=== PATIENT | female | born 1935 | race Two or more races ===

== ENCOUNTER 2018-03-21 12:06 | Inpatient (IN) | payer MEDICARE, OTHER ==
[2018-03-21] VITALS (17 sets, daily range): BP systolic 79–146; BP diastolic 27–84
[~2018-03-21] VITALS: Ht 162.6 cm; Wt 58.7 kg
--- NOTE | 2018-03-21 12:06 | NUR ---
UNABLE TO OBTAIN A RECTAL TEMP AT THIS TIME
--- NOTE | 2018-03-21 12:06 | NUR ---
BIB RA 88 FROM HOME, TACHYPNEIC WITH LOW O2 SAT PER HOME HEALTH NURSE. 82 % O2 SAT PER EMS. PATIENT ALTERED, RESPONDS TO TACTILE STIMULI. BREATHING LABORED, ARRIVED ON NON REBREATHER. MD AT BEDSIDE, PLACED ON BIPAP PER MD, TOLERATING WELL. SAFETY AND COMFORT MEASURES IN PLACE. WILL CONTINUE TO MONITOR.
[2018-03-21] MEDS ORDERED: PIPERACILLIN /TAZOBACTAM 3.375 G in IV D5W 50 ML IV ONE (12:30)
[2018-03-21] MEDS ORDERED: IV NS 0.9% 1,000 ML BAG IV ONE (12:30)
[2018-03-21] MEDS ORDERED: VANCOMYCIN 1 GM in IV D5W 250 ML IV ONE (12:30)
--- NOTE | 2018-03-21 12:30 | NUR ---
NEW IV STARTED ON RAC, 20G. BLOOD DRAWN AND SENT TO LAB.
--- NOTE | 2018-03-21 12:30 | NUR ---
SECOND IV STARTED ON RAC, 20G. BLOOD DRAWN AND SENT TO LAB.
[2018-03-21 12:40] LABS: BASOPHILS # (AUTO) 0.1 /CMM (0.0-0.2); BASOPHILS % (AUTO) 0.5 % (0.0-2.0); EOSINOPHILS % (AUTO) 2.9 % (0.0-6.0); HEMATOCRIT 26 % (33-45); HEMOGLOBIN 8.4 g/dL (11.5-14.8); LYMPHOCYTES # (AUTO) 2.8 /CMM (0.8-4.8); LYMPHOCYTES % (AUTO) 18.5 % (20.0-44.0); MEAN CORPUSCULAR HGB CONC 33 g/dl (31.0-36.0); MEAN CORPUSCULAR VOLUME 72 fL (82-100); MONOCYTES # (AUTO) 0.9 /CMM (0.1-1.30); MONOCYTES % (AUTO) 6.3 % (2.0-12.0); NEUTROPHILS # (AUTO) 10.8 /CMM (1.8-8.9); NEUTROPHILS % (AUTO) 71.8 % (43.0-81.0); PLATELET COUNT (AUTO) 605 /CMM (150-450); RDW COEFFICIENT OF VARIATION 16.6 (11.5-15.0); RED BLOOD CELL COUNT(AUTO) 3.58 MIL/uL (4.0-5.2)
[2018-03-21 12:49] LABS: CALCIUM, SERUM 9.5 mg/dL (8.5-10.1); CARBON DIOXIDE 25 mmol/L (21-32); CHLORIDE 101 mmol/L (98-107); CREATININE 0.6 mg/dL (0.6-1.3); GLUCOSE 167 mg/dL (74-106); POTASSIUM 4.1 mmol/L (3.5-5.1); SODIUM SERUM 135 mmol/L (136-145); UREA NITROGEN, BLOOD 14 mg/dL (7-18)
[2018-03-21 12:50] LABS: INR 1.09 (0.85-1.15)
[2018-03-21 12:55] LABS: ALANINE AMINOTRANSFERASE 29 U/L (12-78); ALKALINE PHOSPHATASE 170 U/L (46-116); ASPARTATE AMINOTRANSFERASE 22 U/L (15-37); BILIRUBIN,DIRECT 0.1 mg/dL (0.0-0.2); BILIRUBIN,TOTAL 0.3 mg/dL (0.2-1.0); TOTAL PROTEIN, SERUM 6.9 g/dL (6.4-8.2)
[2018-03-21 12:57] LABS: ALBUMIN 1.4 g/dL (3.4-5.0)
[2018-03-21 12:58] LABS: TROPONIN I < 0.017 ng/mL (0.00-0.056)
--- NOTE | 2018-03-21 13:11 | NUR ---
16 FR hernandes catheter inserted per sterile protocal. Immediate output 5 ML of urine, color yellow, clear.
--- NOTE | 2018-03-21 13:50 | NUR ---
ICU 263
[2018-03-21] MEDS ORDERED: SIMV20TA6 GT (14:03)
[2018-03-21] MEDS ORDERED: METO50TA16 GT (14:03)
[2018-03-21] MEDS ORDERED: COLL30OI TP (14:03)
[2018-03-21] MEDS ORDERED: EPOE1VIA12 SQ (14:03)
[2018-03-21] MEDS ORDERED: LOSA100T3 GT (14:03)
[2018-03-21] MEDS ORDERED: METF-440 GT (14:03)
[2018-03-21] MEDS ORDERED: MUPI22OI2 TP (14:03)
[2018-03-21] MEDS ORDERED: ERTA1VIA2 IV (14:03)
[2018-03-21] MEDS ORDERED: LEVO25TA2 GT (14:03)
[2018-03-21] MEDS ORDERED: FERR325T23 GT (14:03)
[2018-03-21] MEDS ORDERED: LINE600T GT (14:03)
[2018-03-21 14:05] LABS: APPEARANCE,URINE Clear (CLEAR); BILIRUBIN,URINE Negative (NEGATIVE); BLOOD, URINE Small Ery/uL (NEGATIVE); COLOR,URINE Yellow (YELLOW); KETONES,URINE Negative (NEGATIVE); LEUKOCYTE ESTERASE ,URINE Negative (NEGATIVE); NITRITE, URINE Negative (NEGATIVE); PH,URINE 5.5 (5.0-8.0); PROTEIN,URINE 30 mg/dl (NEGATIVE); UGLUCOSE Negative (NEGATIVE); UROBILINOGEN,URINE 0.2 EU/dL (0.2)
--- NOTE | 2018-03-21 14:08 | NUR ---
CALLED ICU FOR REPORT, RN NOT AVAILABLE FOR REPORT AT THIS TIME, WILL CALL BACK.
--- NOTE | 2018-03-21 14:13 | NUR ---
REPORT GIVEN TO ABRAM EDUARDO FOR LAURA UPON ADMISSION.
[2018-03-21 14:14] LABS: BACTERIA,URINE Few /HPF (None Seen); SQUAMOUS EPITHELIAL CELL,UR Moderate /HPF (None Seen)
[2018-03-21] MEDS ORDERED: ONDANSETRON HCL/PF 4 MG/2 ML VIAL IVP PRN (14:30)
[2018-03-21] MEDS ORDERED: NOREPINEPHRINE 8 MG in IV D5W 500 ML IV PRN (14:30)
--- NOTE | 2018-03-21 14:30 | NUR ---
PATIENT TRANSPORTED TO ICU, 263 VIA ACLS PROTOCOL. RNABRAM TO PROVIDE LAURA.
[2018-03-21] MEDS ORDERED: LORAZEPAM INJ 2 MG/ML VIAL IV PRN (15:00)
[2018-03-21] MEDS ORDERED: ENOXAPARIN SODIUM 30 MG/0.3 ML DISP.SYRIN SQ SCH (15:00)
[2018-03-21] MEDS ORDERED: FEE PK DOSING 1 MIN EA MC ONE (15:15)
--- NOTE | 2018-03-21 15:30 | NUR ---
SUPERVISOR NEWSPAPER DELIVERIES RECEIVED PATIENT FROM ER, PATIENT IS ON NON REBREATHER MASK THEN TRANSFERRED TO BIPAP AT 100% ONCE ON THE FLOOR PATIENT OPEN EYES, CONFUSED PER STRAIGHT LINE PRESS SETTER TO PAIN STIMULUS SINUS TACHYCARDIA NOTED, BRIEFLY LOW BP NOTED PLACED ON NPO WITH MULTIPLE WOUNDS AT THE BUTTOCKS AND FEET AREA, DRESSING CHANGED AND PHOTO AND DOCUMENTED WITH PATEL CATHETER DRAINING TO YELLOWISH URINE SMALL IN AMOUNT
[2018-03-21 15:53] LABS: ABG PCO2 33.5 mmHg (35.0-45.0); ABG PH 7.465 (7.350-7.450); AaDO2 288.5 mmHg; COHb 0.6 % (0.5-1.5); MetHb 0.7 % (0.0-1.5); O2Hb 97.7 % (94.0-97.0); SITE, ABG Left Radial; VENT MODE, BG BIPAP 15/5
--- NOTE | 2018-03-21 15:57 | NUR ---
bipap changes bellow as order: rate 12 fio2 50% Addendum: 03/21/18 at 1558 by COTY LAWRENCE RT Amended: Links added.
[2018-03-21] MEDS ORDERED: IV D5/ 0.9% NACL 1,000 ML IV PRN (16:00)
[2018-03-21] MEDS ORDERED: IV NS 0.9% 1,000 ML BAG IV PRN (16:00)
[2018-03-21] MEDS: ACETYLCYSTEINE 10% SOLN 400 MG/4 ML VIAL NEB SCH ×2 (16:00→23:09)
[2018-03-21] MEDS: IV NS 0.9% 1,000 ML IV PRN (16:03)
[2018-03-21] MEDS: IPRATROPIUM NEB FS 0.5 MG/2.5 ML AMPUL.NEB NEB SCH (16:05)
[2018-03-21] MEDS: ALBUTEROL HALF STRENGTH 1.25 MG/3 ML VIAL.NEB NEB SCH (16:05)
[2018-03-21] MEDS: ENOXAPARIN SODIUM 40 MG/0.4 ML DISP.SYRIN SQ SCH (16:05)
[2018-03-21] MEDS: PANTOPRAZOLE 40 MG VIAL IV SCH (16:05)
--- NOTE | 2018-03-21 16:15 | NUR ---
SLUDGE CONTROL OPERATOR SEEN AND EXAMINED BY DR. LOYD WITH NEW ORDERS MADE AND CARRIED OUT ABG DONE ORDERED BY DR. LOYD RESULT SHOWED TO HIM ORDERED TO DECREASED FI02 TO 50% ANG RATE - 12 MONITORED CLOSELY DAUGHTER IS AT BEDSIDE, DR. LOYD TALKED WITH DAUGHTER Addendum: 03/21/18 at 1740 by ABRAM HAND RN RESULT OF WOUND CULTURE DONE OUTSIDE WAS FAXED, RESULT IS IN THE CHART
[2018-03-21] MEDS: PIPERACILLIN /TAZOBACTAM 2.25 G in IV D5W 50 ML IV SCH (17:23)
--- NOTE | 2018-03-21 19:30 | NUR ---
REPORT GOTTEN ON PT. PT RESTING QUIETLY VIA VENTILATOR
--- NOTE | 2018-03-21 22:25 | NUR ---
CALLED TO CLARIFY CODE STATUS. PT IS FULL CODE FOR NOW
[2018-03-22] VITALS (35 sets, daily range): BP systolic 67–142; BP diastolic 19–83
[2018-03-22] MEDS: PIPERACILLIN /TAZOBACTAM 2.25 G in IV D5W 50 ML IV SCH ×4 (00:57→17:33)
[2018-03-22] MEDS: IPRATROPIUM NEB FS 0.5 MG/2.5 ML AMPUL.NEB NEB SCH ×4 (02:03→20:13)
[2018-03-22] MEDS: ALBUTEROL HALF STRENGTH 1.25 MG/3 ML VIAL.NEB NEB SCH ×4 (02:03→20:13)
[2018-03-22] MEDS: VANCOMYCIN 500 MG in IV D5W 100 ML IV SCH ×2 (02:09→14:27)
[2018-03-22 05:05] LABS: BASOPHILS % (AUTO) 0.4 % (0.0-2.0); EOSINOPHILS % (AUTO) 7.9 % (0.0-6.0); HEMATOCRIT 22 % (33-45); LYMPHOCYTES # (AUTO) 1.6 /CMM (0.8-4.8); LYMPHOCYTES % (AUTO) 13.3 % (20.0-44.0); MEAN CORPUSCULAR HGB CONC 33 g/dl (31.0-36.0); MEAN CORPUSCULAR VOLUME 72 fL (82-100); MONOCYTES # (AUTO) 0.5 /CMM (0.1-1.30); MONOCYTES % (AUTO) 4.4 % (2.0-12.0); PLATELET COUNT (AUTO) 496 /CMM (150-450); RDW COEFFICIENT OF VARIATION 16.4 (11.5-15.0); RED BLOOD CELL COUNT(AUTO) 3.01 MIL/uL (4.0-5.2); WHITE BLOOD COUNT (AUTO) 12.1 K/uL (4.3-11.0)
[2018-03-22 05:13] LABS: CALCIUM, SERUM 8.2 mg/dL (8.5-10.1); CARBON DIOXIDE 24 mmol/L (21-32); CHLORIDE 106 mmol/L (98-107); CREATININE 0.5 mg/dL (0.6-1.3); GLUCOSE 154 mg/dL (74-106); POTASSIUM 3.4 mmol/L (3.5-5.1); SODIUM SERUM 138 mmol/L (136-145); UREA NITROGEN, BLOOD 11 mg/dL (7-18)
[2018-03-22 05:55] LABS: BAND % (MANUAL) 1 % (0.0-5.0); EOSINOPHILS % (MANUAL) 3 % (0-4); LYMPHOCYTES % (MANUAL) 11 % (16-48); MONOCYTES % (MANUAL) 1 % (0-11.0); NEUTROPHILS % (MANUAL) 84 (42-76)
--- NOTE | 2018-03-22 07:30 | NUR ---
ICU/RN AM NOTES RECEIVED PT IN BED, ASLEEP, AROUSES TO TOUCH, NON VERBAL, ON BIPAP, FIO2 40% RATE 12, NOT IN ANY DISTRESS, BREATHING EVEN AND UNLABORED, SR HR 97 ON MONITOR, NO SIGNS OF FACIAL GRIMACING, OR DISCOMFORT, NS AT 75 ML/HR TO RAC G20, RT WRIST G24, FLUSHES WELL, BOTH SITES CLEAR. CONTRACTED BOTH UPPER AND LOWER EXTREMITIES. FC DRAINING WELL TO GRAVITY. SEE NURSING FLOWSHEET FOR SKIN ISSUES. WILL TURN AND REPOSITION EVERY 2 HOURS, ALARM SOUNDS AUDIBLE. CALL LIGHT WITHIN REACH, WILL CONTINUE TO MONITOR.
[2018-03-22] MEDS: ACETYLCYSTEINE 10% SOLN 400 MG/4 ML VIAL NEB SCH ×3 (07:42→23:43)
--- NOTE | 2018-03-22 08:33 | NUR ---
TYPIST NOTES PER LOPEZ CISNEROS FOR DNR/DNI STATUS. ORDER IN PLACE WITH FLOYD CHARGE NURSE.
[2018-03-22] MEDS: IV NS 0.9% 1,000 ML IV PRN (09:10)
[2018-03-22] MEDS: PANTOPRAZOLE 40 MG VIAL IV SCH (09:10)
[2018-03-22 10:16] LABS: ABG BASE EXCESS -2.9 mmol/L; ABG OXYGEN SATURATION 92.4 % (92.0-98.5); ABG PCO2 32.9 mmHg (35.0-45.0); ABG PH 7.425 (7.350-7.450); ABG PO2 71.2 mmHg (75.0-100.0); AaDO2 147.3 mmHg; COHb 0.9 % (0.5-1.5); MetHb 0.7 % (0.0-1.5); O2Hb 90.9 % (94.0-97.0); SITE, ABG Right Radial; VENT MODE, BG Nasal Cannula
[2018-03-22] MEDS: POTASSIUM CL. PREMIX PERIPHER. 50 ML IV SCH ×2 (12:33→13:18)
[2018-03-22] MEDS ORDERED: GLUCERNA 1.2 1,000 ML BOTTLE GT PRN (13:00)
--- NOTE | 2018-03-22 14:26 | NUR ---
CINDER PITMAN NOTES STARTED GLUCERNA 1.2 AT 20 ML/HR
--- NOTE | 2018-03-22 14:50 | NUR ---
EXTRUDER OPERATOR HELPER RN INFORMED THE TUB CHUCKER THAT HARBOR BOAT PILOT IS UNABLE TO ACCESS PATIENT'S BILATERAL LOWER EXTREMITIES FOR TEST. PER MD IT IS OK TO CANCEL THE TEST FOR NOW. HARBOR BOAT PILOT MADE AWARE.
--- NOTE | 2018-03-22 17:10 | NUR ---
INSPECTION CLERK NOTES DR. SORENSEN AT BEDSIDE TO ASSESS WOUNDS.
--- NOTE | 2018-03-22 18:55 | NUR ---
ICU/RN CLOSING NOTES PATIENT RESTING IN BED, EYES OPEN, NON VERBAL, ON 4L O2 NC, O2 SAT 96%, NOT IN ANY DISTRESS, BREATHING EVEN AND UNLABORED, SR HR 99 ON MONITOR, NO SIGNS OF FACIAL GRIMACING, OR DISCOMFORT, NS AT 75 ML/HR TO RAC G20, RT WRIST G24, FLUSHES WELL, BOTH SITES CLEAR. CONTRACTED BOTH UPPER AND LOWER EXTREMITIES. FC DRAINING WELL TO GRAVITY 400 ML TOTAL OUTPUT. TURNED AND REPOSITIONED EVERY 2 HOURS, ALARM SOUNDS AUDIBLE. CALL LIGHT WITHIN REACH, PM CARE DONE. DRESSING CHANGED TO ALL WOUND. ALL NEEDS MET AT THIS TIME. NO OTHER SIGNIFICANT CHANGE IN CONDITION. WILL ENDORSE TO NEXT SHIFT FOR LAURA.
[2018-03-22] MEDS: ENOXAPARIN SODIUM 40 MG/0.4 ML DISP.SYRIN SQ SCH (21:00)
--- NOTE | 2018-03-22 22:45 | NUR ---
SECONDARY SPECIAL EDUCATION TEACHER DF PER PREVIOUS RN CORTEZ SHAFER HELD 2ND POSSIBLE GIB LOW PLTS.
--- NOTE | 2018-03-22 23:22 | NUR ---
ATTEMPTING TO REASSURE DAUGHTER, WANTING TO TALK TO DRS ABOUT MOTHERS CARE, OFFICE NUMBERS GIVEN
--- NOTE | 2018-03-22 23:48 | NUR ---
ATTEMPTING TO REASSURE DAUGHTER, WANTED DOCTORS PHONE NUMBERS
[2018-03-23] VITALS (34 sets, daily range): BP systolic 89–138; BP diastolic 37–65
--- NOTE | 2018-03-23 | NUR ---
COMPLIANCE MANAGER NOTE PT RECEIVED SLEEPING IN BED. ON 4L OF O2 VIA NC AND SATURATING 98%. NO ACUTE DISTRESS NOTED. BREATHING UNLABORED. HOB ELEVATED AND ON ASPIRATION PRECAUTIONS. GT FEEDING WELL TOLERATED AND NO RESIDUALS NOTED AT THIS TIME. IV RAC CLEAN, INTACT WITH 1 UNIT OF PRBC INFUSING. NO FACIAL GRIMACE NOTED. WILL CONTINUE TO MONITOR.
[2018-03-23] MEDS: PIPERACILLIN /TAZOBACTAM 2.25 G in IV D5W 50 ML IV SCH ×4 (01:01→17:48)
[2018-03-23] MEDS: ALBUTEROL HALF STRENGTH 1.25 MG/3 ML VIAL.NEB NEB SCH ×4 (01:41→20:14)
[2018-03-23] MEDS: IPRATROPIUM NEB FS 0.5 MG/2.5 ML AMPUL.NEB NEB SCH ×4 (01:41→20:14)
--- NOTE | 2018-03-23 02:00 | NUR ---
FOOD AND BEVERAGE ASSOCIATE NOTE PT PUT ON BIPAP BY RT D/T DESATURATION AND SOB. ON BIPAP SATURATING 96% AND WELL TOLERATED. HOB REMAINS ELEVATED. WILL MONITOR.
[2018-03-23] MEDS: VANCOMYCIN 500 MG in IV D5W 100 ML IV SCH ×2 (02:23→15:57)
[2018-03-23] MEDS: ACETAMINOPHEN 325 MG TABLET MC PRN ×2 (03:06→13:47)
[2018-03-23 04:50] LABS: BASOPHILS # (AUTO) 0.1 /CMM (0.0-0.2); BASOPHILS % (AUTO) 1.1 % (0.0-2.0); EOSINOPHILS % (AUTO) 9.3 % (0.0-6.0); HEMATOCRIT 29 % (33-45); HEMOGLOBIN 9.1 g/dL (11.5-14.8); LYMPHOCYTES # (AUTO) 1.5 /CMM (0.8-4.8); LYMPHOCYTES % (AUTO) 11.7 % (20.0-44.0); MEAN CORPUSCULAR HGB CONC 32 g/dl (31.0-36.0); MEAN CORPUSCULAR VOLUME 75 fL (82-100); MONOCYTES # (AUTO) 0.8 /CMM (0.1-1.30); MONOCYTES % (AUTO) 6.2 % (2.0-12.0); NEUTROPHILS # (AUTO) 9.1 /CMM (1.8-8.9); NEUTROPHILS % (AUTO) 71.7 % (43.0-81.0); PLATELET COUNT (AUTO) 620 /CMM (150-450); RDW COEFFICIENT OF VARIATION 17.8 (11.5-15.0); RED BLOOD CELL COUNT(AUTO) 3.83 MIL/uL (4.0-5.2); WHITE BLOOD COUNT (AUTO) 12.7 K/uL (4.3-11.0)
[2018-03-23 05:07] LABS: CALCIUM, SERUM 8.9 mg/dL (8.5-10.1); CARBON DIOXIDE 22 mmol/L (21-32); CHLORIDE 106 mmol/L (98-107); CREATININE 0.6 mg/dL (0.6-1.3); GLUCOSE 175 mg/dL (74-106); POTASSIUM 3.5 mmol/L (3.5-5.1); SODIUM SERUM 138 mmol/L (136-145); UREA NITROGEN, BLOOD 9 mg/dL (7-18)
[2018-03-23 05:15] LABS: IRON, SERUM 19 ug/dl (50-175); TOTAL IRON BINDING CAPACITY 137 ug/dl (250-450)
[2018-03-23 05:18] LABS: FERRITIN 579 ng/mL (8-388)
[2018-03-23] MEDS: IV NS 0.9% 1,000 ML IV PRN ×2 (05:52→20:02)
--- NOTE | 2018-03-23 07:17 | NUR ---
OIL BURNER REPAIRER CLOSING NOTE PT REMAINED STABLE DURING SHIFT. ON BIPAP AT THIS TIME AND SATURATING 98%. ON ASPIRATION PRECAUTIONS. REPOSITIONED Q2H. WOUND TREATMENT PERFORMED ORDERED. TYLENOL GIVEN BEFORE WOUND TREATMENT. GTF CURRENTLY AT 40 MLS/HR. ALL NEEDS ATTENDED TO PROMPTLY. WILL ENDORSE TO NEXT SHIFT FOR CONTINUITY OF CARE.
[2018-03-23] MEDS: ACETYLCYSTEINE 10% SOLN 400 MG/4 ML VIAL NEB SCH ×3 (07:35→23:48)
--- NOTE | 2018-03-23 08:23 | NUR ---
WOUND CARE CONSULT WOUND CARE RECEIVED CONSULT FOR MULTIPLE WOUNDS AT THE LOWER EXTREMITIES AND BUTTOCKS. WOUND CARE WILL DEFER CONSULT AND ALL TREATMENT PLANS TO SURGICAL TEAM THEY ARE CURRENTLY FOLLOWING. ALL PRESSURE ULCER PREVENTION MEASURES NOTED TO BE IN PLACE. PT WITH PATRICK AT 9. PATIENT ON 1ST STEP LOW AIRLOSS MATTRESS FOR TREATMENT AND SKIN MANAGEMENT. Addendum: 03/23/18 at 0828 by YOLANDA BASILIO WNDNU PATIENT ADMITTED FROM HOME WITH MULTIPLE PRESSURE ULCERS POA. RECOMMEND SOCIAL SERVICE CONSULT FOR POSSIBLE APS. ACNP NOTIFIED AND IN AGREEMENT.
[2018-03-23] MEDS: DAKINS QUARTER STRENGTH (0.125%) 480 ML BOTTLE TOP SCH (09:00)
[2018-03-23] MEDS: ASCORBIC ACID 500 MG TABLET GT SCH (09:35)
[2018-03-23] MEDS: ZINC SULFATE 220 MG CAPSULE GT SCH (09:35)
[2018-03-23] MEDS: PANTOPRAZOLE 40 MG VIAL IV SCH ×2 (09:35→16:43)
--- NOTE | 2018-03-23 11:00 | NUR ---
ROBERTO was informed by Wound RN Karma that pt. has stage 4 pressure ulcers and is concerned because pt's daughter Wilmer is getting in the way of pt's plan of care at the hospital dictating, what medicine to give to or not give the pt. Per GOPI Fowler, pt. has multiple wounds that were present on admission-sacrum, right/left buttocks, left thigh-stage 4 right and left foot heels and ankles. ROBERTO contacted pt's daughter Wilmer to assess quality of care at home. Makigema informed ROBERTO that pt. lives with her and she is the primary caregiver for the pt. She stated she provided 24/ caregiving to the pt. and if and when she has to leave the house, she has a friend over to supervise the pt. Wilmer is receiving IHSS. She inquired about getting more help at home. ROBERTO explained to her that since she is receiving IHSS she has the option to hire someone using the IHSS funds. She understood. Pt. is also receiving home health services with [facility] health. The home health agency comes to the home three times per week. ROBERTO explained to Wilmer that pt. has stage 4 wounds that are concerning since pt. has home health and continues to have severe wounds. Wilmer began to complain about the care at [facility] and she is not happy with the plan of care that is being provided. Per GOPI Fowler and JAYCE Parada, Wilmer is attempting to dictate pt's plan of care. SW to file APS due to pt. having Stage 4 wounds upon admission.
--- NOTE | 2018-03-23 11:27 | NUR ---
APS report was submitted on 03/23/18 at 11:26AM. (APS intake ID#[id number]) due to pt. having Stage 4 wounds upon admission.
--- NOTE | 2018-03-23 13:10 | NUR ---
RT placed pt on Nasal Cannula on 4lpm due to MD orders. will monitor closely
--- NOTE | 2018-03-23 14:00 | NUR ---
DRESSING CHANGE DONE TO BUTTOCKS, HIPS AND FEET
--- NOTE | 2018-03-23 14:17 | NUR ---
ROBERTO received a call from APS vp digital marketing social media and crm Oneil following up regarding APS report that was filed by ROBERTO this morning. Oneil informed SW she will go see the pt. at home once discharged.
--- NOTE | 2018-03-23 15:30 | NUR ---
ATHLETIC SCOUT TALKED WITH GOPI CISNEROS WOUND MANAGEMENT TEAM WILL SIGN OUT PER GOPI CISNEROS DUE TO DAUGHTERS PERSISTENT DECLINE FOR WOUND MANAGEMENT FOR HER MOM SHE WANTED TO HAVE HER MOM'S WOUND DOCTOR AND NURSE TO TAKE CARE OF THE WOUND THE DAUGHTER DOES NOT WANT THE MEDICATION ORDERED FOR HER MOM'S WOUNDS IN THE HOSPITAL BUT RATHER USE THE MEDICATIONS AT HOME
[2018-03-23] MEDS: LACTOBACILLUS RHAMNOSUS GG 1 EACH CAP.SPRINK GT SCH (16:42)
--- NOTE | 2018-03-23 17:15 | NUR ---
HEEL WASHER STRINGING MACHINE OPERATOR NOTES RECEIVED PATIENT FROM JAYCE BARRON FOR CONTINUITY OF CARE.
--- NOTE | 2018-03-23 19:25 | NUR ---
CERTIFIED EXECUTIVE CHEF NOTE SEEN AND EXAMINED BY DR. HUERTA
--- NOTE | 2018-03-23 19:30 | NUR ---
CABLE SUPERVISOR INITIAL NOTE RECEIVED PATIENT AWAKE, NON-VERBAL. NO S/S OF PAIN OR DISCOMFORT. NO RESPIRATORY DISTRESS NOTED ON 4LPMO2 VIA NC SPO2 100%. SKIN WARM AND DRY TO TOUCH. ON TELE MONITOR SR. GT PATENT AND INTACT, IN PLACE WITH GTF AT 60ML/HR, NO RESIDUAL NOTED AT THIS TIME. F/C PATENT AND INTACT, DRAINING BY GRAVITY. WITH IVF AT 75ML/HR. HOB ELEVATED. TURNED AND REPOSITIONED . SIDE RAILS UP AND LOCKED. BED KEPT AT LOWEST POSITION. ISOLATION PRECAUTIONS OBSERVED. WILL CONTINUE TO MONITOR.
--- NOTE | 2018-03-23 19:51 | NUR ---
FOREIGN FOOD COOK SPECIALTY NOTE NOTIFIED DR ROBBINS REGARDING MIDLINE PLACEMENT. PER ITZEL HE WILL NOT BE COMING TO PLACE MIDLINE. CHARGE NURSE MADE AWARE, WILL TRY TO PLACE PERIPHERAL LINE.
[2018-03-23] MEDS: GLUCERNA 1.2 1,000 ML BOTTLE GT PRN (20:02)
[2018-03-23 20:28] LABS: OCCULT BLOOD STOOL NEGATIVE (NEGATIVE)
[2018-03-23] MEDS: ENOXAPARIN SODIUM 40 MG/0.4 ML DISP.SYRIN SQ SCH (21:11)
--- NOTE | 2018-03-23 22:30 | NUR ---
INTENSIVE CARE UNIT NURSE NOTE PER CHARGE NURSE, RN FRONT OFFICE COORDINATOR CALLED TO INFORM REGARDING PATIENT HAVING EGD PROCEDURE AT 12PM IN THE AFTERNOON TOMORROW 03/24.
[2018-03-24] VITALS (10 sets, daily range): BP systolic 123–151; BP diastolic 40–77
[2018-03-24] MEDS: PIPERACILLIN /TAZOBACTAM 2.25 G in IV D5W 50 ML IV SCH ×4 (00:30→17:00)
[2018-03-24] MEDS: ALBUTEROL HALF STRENGTH 1.25 MG/3 ML VIAL.NEB NEB SCH ×4 (01:45→19:30)
[2018-03-24] MEDS: IPRATROPIUM NEB FS 0.5 MG/2.5 ML AMPUL.NEB NEB SCH ×4 (01:45→19:30)
[2018-03-24] MEDS: VANCOMYCIN 500 MG in IV D5W 100 ML IV SCH ×2 (02:09→15:40)
[2018-03-24 04:42] LABS: BASOPHILS # (AUTO) 0.1 /CMM (0.0-0.2); BASOPHILS % (AUTO) 0.6 % (0.0-2.0); EOSINOPHILS % (AUTO) 9.4 % (0.0-6.0); HEMATOCRIT 27 % (33-45); HEMOGLOBIN 8.6 g/dL (11.5-14.8); LYMPHOCYTES # (AUTO) 1.4 /CMM (0.8-4.8); LYMPHOCYTES % (AUTO) 12.3 % (20.0-44.0); MEAN CORPUSCULAR HGB CONC 31 g/dl (31.0-36.0); MEAN CORPUSCULAR VOLUME 76 fL (82-100); MONOCYTES # (AUTO) 0.7 /CMM (0.1-1.30); MONOCYTES % (AUTO) 6.4 % (2.0-12.0); NEUTROPHILS # (AUTO) 8.1 /CMM (1.8-8.9); NEUTROPHILS % (AUTO) 71.3 % (43.0-81.0); PLATELET COUNT (AUTO) 486 /CMM (150-450); RDW COEFFICIENT OF VARIATION 18.3 (11.5-15.0); RED BLOOD CELL COUNT(AUTO) 3.62 MIL/uL (4.0-5.2); WHITE BLOOD COUNT (AUTO) 11.3 K/uL (4.3-11.0)
[2018-03-24 04:59] LABS: INR 1.1 (0.87-1.13)
[2018-03-24 05:00] LABS: CALCIUM, SERUM 8.6 mg/dL (8.5-10.1); CARBON DIOXIDE 23 mmol/L (21-32); CHLORIDE 108 mmol/L (98-107); CREATININE 0.6 mg/dL (0.6-1.3); GLUCOSE 165 mg/dL (74-106); POTASSIUM 3.4 mmol/L (3.5-5.1); SODIUM SERUM 140 mmol/L (136-145); UREA NITROGEN, BLOOD 9 mg/dL (7-18)
[2018-03-24] MEDS: IV NS 0.9% 1,000 ML IV PRN (05:29)
--- NOTE | 2018-03-24 05:30 | NUR ---
REFINERY OPERATOR NOTE BED BATH GIVEN ALL WOUND TX DONE. NOTED PATIENT WITH TWO EPISODES OF DIARRHEA, FLEXISEAL PLACED. PATIENT TRANSFERRED TO [facility] ROOM 101. CONTINUITY OF CARE ENDORSED TO [facility] NURSE
--- NOTE | 2018-03-24 06:06 | NUR ---
[facility] RN NOTES RECEIVED REPORT AND PATIENT FROM ICU NURSE LISSETTE , NO SOB NO DISTRESS NOTED REMAINS ON 4LITERS OF O2 VIA NC , PTS REMAINS NPO STATUS FOR EGD TODAY , WILL ENDORSE TO RN DAY SHIFT PER ICU NURSE DAUGHTER REFUSED EGD .V/S STABLE AFEBRILE
--- NOTE | 2018-03-24 06:06 | NUR ---
AVIATION ORDNANCE OFFICER NOTES SPOKE WITH DAUGHTER INFORMED HER REGARDING PATIENTS TRANSFER TO [facility] ROOM 101. ALSO INFORMED HER REGARDING EGD CONSENT, PER DAUGHTER SHE SEES NO NEED FOR HER MOM TO HAVE AN EGD AND SHE WILL COME AND SEE HER AROUND 9 OR 10 IN THE MORNING. ALSO INFORMED HER REGARDING FLEXISEAL. DAUGHTER APPRECIATIVE OF THE CALL AND THE INFORMATION. ENDORSED TO [facility] NURSE.
[2018-03-24] MEDS ORDERED: Z GUARD REMEDY 4 OZ OINT TP PRN (06:30)
--- NOTE | 2018-03-24 07:30 | NUR ---
[facility] RN AM NOTES RECEIVED PT IN BED, ASLEEP, AROUSES TO TOUCH, NON VERBAL, ON 4L O2 NC, O2 SAT 100%. NOT IN ANY DISTRESS, BREATHING EVEN AND UNLABORED, SR HR 95 ON MONITOR, NO SIGNS OF FACIAL GRIMACING, OR DISCOMFORT, NS AT 75 ML/HR TO LEFT EJ G20, SITE CLEAR. CONTRACTED BOTH UPPER AND LOWER EXTREMITIES. GTF HELD FOR NOW FOR POSSIBLE EGD. FC DRAINING WELL TO GRAVITY. SEE NURSING FLOWSHEET FOR SKIN ISSUES. WILL TURN AND REPOSITION EVERY 2 HOURS, ALARM SOUNDS AUDIBLE. CALL LIGHT WITHIN REACH, WILL CONTINUE TO MONITOR.
[2018-03-24] MEDS: ACETYLCYSTEINE 10% SOLN 400 MG/4 ML VIAL NEB SCH ×3 (07:38→23:30)
--- NOTE | 2018-03-24 08:45 | NUR ---
TD RN NOTES SPOKE WITH DAUGHTER BB- SHE SAID NO PROCEDURES OF ANY KIND FOR HER MOTHER. DO NOT TOUCH THE WOUND. NO EGD.
[2018-03-24] MEDS: ASCORBIC ACID 500 MG TABLET GT SCH (09:13)
[2018-03-24] MEDS: PANTOPRAZOLE 40 MG VIAL IV SCH ×2 (09:13→16:51)
[2018-03-24] MEDS: LACTOBACILLUS RHAMNOSUS GG 1 EACH CAP.SPRINK GT SCH ×2 (09:13→16:51)
[2018-03-24] MEDS: ZINC SULFATE 220 MG CAPSULE GT SCH (09:13)
[2018-03-24] MEDS: DAKINS QUARTER STRENGTH (0.125%) 480 ML BOTTLE TOP SCH (09:14)
--- NOTE | 2018-03-24 09:30 | NUR ---
[facility] RN NOTES ADMINISTERED DUE MEDS.
--- NOTE | 2018-03-24 09:45 | NUR ---
[facility] RN NOTES LEFT A MESSAGE FOR PRECISION LENS POLISHER TO ASSESS PATIENT REGARDING TUBE FEEDING AND THAT PATIENT IS HAVING DIARRHEA.
--- NOTE | 2018-03-24 10:00 | NUR ---
[facility] RN NOTES PER NURSING COMMERCIAL MANAGER. DR. CASTILLO MADE AWARE THAT PT'S DAUGHTER REFUSED EGD.
[2018-03-24] MEDS ORDERED: POTASSIUM CHLORIDE 20 MEQ POWDER PACKET GT ONE (12:15)
--- NOTE | 2018-03-24 12:47 | NUR ---
[facility] RN NOTES STARTED ZOSYN IV.
--- NOTE | 2018-03-24 14:53 | NUR ---
PATIENT COMPLAINING ABOUT WOUND CARE TREATMENT VERBALIZED SHE WILL BRING HER OWN MEDS FROM HOME AND WILL DO HER OWN WOUND CARE.DR. SORENSEN AT BEDSIDE EXPLAINED THE PLAN OF TREATMENT AND STILL INSISTED TO DO HER OWN TREATMENT.SUE SHELTON NP MADE AWARE OF SITUATION AND VERBALIZED HE IS AWARE OF IT AND THAT EPS REPORT WAS FILE ALREADY.
--- NOTE | 2018-03-24 14:55 | NUR ---
FF. UP WOUND CX RESULT PER LAB THERE WAS NO SPECIMEN SEND. ID C/O SUMMER NOTIFIED AND WANTED IT RESEND.NURSE JIMENA EDUARDO MADE AWARE.
--- NOTE | 2018-03-24 15:00 | NUR ---
[facility] RN NOTES PLACED A CALL TO [facility] REGARDING VANCO IV SCHEDULED FOR 1400 NOT AVAILABLE.
--- NOTE | 2018-03-24 16:40 | NUR ---
[facility] RN NOTES WOUND CULTURE FOR SACRAL AREA COLLECTED AND CALLED IN TO LABORATORY FOR ROLLING CHAIR PUSHER.
--- NOTE | 2018-03-24 17:00 | NUR ---
[facility] RN NOTES STARTED ZOSYN IV.
--- NOTE | 2018-03-24 19:20 | NUR ---
[facility] RN OPENING NOTES RECEIVED REPORT FROM JIMENA EDUARDO. PATIENT A/A/O X1, NON-VERBAL BUT RESPONSIVE TO VERBAL & TACTILE STIMULI. OPENS EYES. BREATHING EVEN & UNLABORED, TOLERATING 02 @ 3LPM VIA NC. NO S/S OF RESPIRATORY DISTRESS. ON TELE W/ SINUS RHYTHM, HR 90S. LEFT EXTERNAL JUGULAR IV INTACT & PATENT W/ DRESSING CDI & IVF NS @ 75 ML/HR. G-TUBE INTACT & FLUSHING WELL. PATIENT TOLERATING GTF GLUCERNA @ 35 ML/HR, NO RESIDUAL NOTED @ THIS TIME. PATEL CATH DRAINING YELLOW URINE & FLEXISEAL IN PLACE W/ LIQUID BROWN OUTPUT. NO S/S OF PAIN OR DISCOMFORT @ THIS TIME. SAFETY MEASURES IN PLACE. WILL CONTINUE TO MONITOR CLOSELY.
--- NOTE | 2018-03-24 19:46 | NUR ---
[facility] RN CLOSING NOTES PATIENT RESTING IN BED, EYES CLOSED. NON VERBAL, ON 4L O2 NC, O2 SAT 96%, NOT IN ANY DISTRESS, BREATHING EVEN AND UNLABORED, SR HR 95-99 ON MONITOR, NO SIGNS OF FACIAL GRIMACING, OR DISCOMFORT, NS AT 75 ML/HR TO LEFT EXT JUG G20, SITE CLEAR. CONTRACTED BOTH UPPER AND LOWER EXTREMITIES. FC DRAINING WELL TO GRAVITY 400 ML TOTAL OUTPUT. FLEXISEAL IN PLACE, 105 ML OUTPUT. TURNED AND REPOSITIONED EVERY 2 HOURS, ALARM SOUNDS AUDIBLE. CALL LIGHT WITHIN REACH, PM CARE DONE. PERFOMED PRESCRIBED WOUND TREATMENT EARLIER. ALL NEEDS MET AT THIS TIME. NO OTHER SIGNIFICANT CHANGE IN CONDITION. WILL ENDORSE TO NEXT SHIFT FOR LAURA. PER DR. VAZQUEZ, OK TO FOLLOW ALL WOUND CARE TREATMENT BEING DONE AT HOME BY DAUGHTER.
--- NOTE | 2018-03-24 20:00 | NUR ---
[facility] RN NOTES WOUND CARE DONE BY DAUGHTER, BB BECAUSE SHE ONLY WANTS TO FOLLOW PREVIOUS WOUND TX GIVEN AT HOME. PER DAUGHTER, SHE DOESN'T WANT ANYONE ELSE TO TOUCH DRESSINGS UNLESS SHE'S THERE. WILL ENDORSE TO ONCOMING NURSES.
[2018-03-24] MEDS: ENOXAPARIN SODIUM 40 MG/0.4 ML DISP.SYRIN SQ SCH (21:59)
[2018-03-25] VITALS: BP 123/50
[2018-03-25] MEDS: PIPERACILLIN /TAZOBACTAM 2.25 G in IV D5W 50 ML IV SCH ×5 (00:23→23:57)
[2018-03-25] MEDS: IPRATROPIUM NEB FS 0.5 MG/2.5 ML AMPUL.NEB NEB SCH ×4 (01:30→19:30)
[2018-03-25] MEDS: ALBUTEROL HALF STRENGTH 1.25 MG/3 ML VIAL.NEB NEB SCH ×4 (01:30→19:30)
[2018-03-25] MEDS: ACETAMINOPHEN 325 MG TABLET MC PRN (02:27)
[2018-03-25] MEDS: VANCOMYCIN 500 MG in IV D5W 100 ML IV SCH ×2 (03:33→14:44)
[2018-03-25 04:00] VITALS: BP 122/45
[2018-03-25] MEDS: IV NS 0.9% 1,000 ML IV PRN ×2 (06:18→23:57)
[2018-03-25 06:39] LABS: BASOPHILS % (AUTO) 0.3 % (0.0-2.0); EOSINOPHILS % (AUTO) 7.9 % (0.0-6.0); HEMATOCRIT 26 % (33-45); HEMOGLOBIN 8.1 g/dL (11.5-14.8); LYMPHOCYTES # (AUTO) 1.9 /CMM (0.8-4.8); LYMPHOCYTES % (AUTO) 19.2 % (20.0-44.0); MEAN CORPUSCULAR HGB CONC 31 g/dl (31.0-36.0); MEAN CORPUSCULAR VOLUME 76 fL (82-100); MONOCYTES # (AUTO) 0.8 /CMM (0.1-1.30); MONOCYTES % (AUTO) 8.1 % (2.0-12.0); NEUTROPHILS # (AUTO) 6.5 /CMM (1.8-8.9); NEUTROPHILS % (AUTO) 64.5 % (43.0-81.0); PLATELET COUNT (AUTO) 461 /CMM (150-450); RDW COEFFICIENT OF VARIATION 19.7 (11.5-15.0); RED BLOOD CELL COUNT(AUTO) 3.42 MIL/uL (4.0-5.2)
[2018-03-25 06:47] LABS: CALCIUM, SERUM 8.4 mg/dL (8.5-10.1); CREATININE 0.5 mg/dL (0.6-1.3); GLUCOSE 154 mg/dL (74-106); UREA NITROGEN, BLOOD 7 mg/dL (7-18)
[2018-03-25 06:52] LABS: CARBON DIOXIDE 25 mmol/L (21-32); CHLORIDE 108 mmol/L (98-107); SODIUM SERUM 141 mmol/L (136-145)
--- NOTE | 2018-03-25 07:30 | NUR ---
TD RN OPENING RECEIVED PATIENT NON VERBAL CONTRACTED. TELE NSR. PATEL CATH DRAINING TO GRAVITY. FLEXI SEAL IN WITH DIARRHEA BROWN NOTED. IVF RUNNING ORDERED; IV SITE CLEAN DRY AND INTACT. TUBE FEEDING RUNNING ORDERED NO RESIDUAL. PATIENT REPOSITIONED. DRESSINGS INTACT AND WILL MONITOR; OFFLOADING EXTREMITIES. HOB ELEVATED. PER DAUGHTER ALL LIGHTS ON AT ALL TIMES. SAFETY PRECAUTIONS IN PLACE. WILL ROUND PRN PER NEEDS
[2018-03-25] MEDS: ACETYLCYSTEINE 10% SOLN 400 MG/4 ML VIAL NEB SCH ×2 (07:32→14:02)
--- NOTE | 2018-03-25 07:37 | NUR ---
PER REPORT FROM TONNY EDUARDO PATIENT DAUGHTER "TRAVIS" IS REFUSING ANY RN/MD TO COMPLETE ORDERED WOUND CARE. DRESSINGS CURRENTLY INTACT. WILL MONITOR. Addendum: 03/25/18 at 0742 by NETTE ZARATE RN Amended: Links added.
[2018-03-25 08:00] VITALS: BP 133/50
[2018-03-25] MEDS: LACTOBACILLUS RHAMNOSUS GG 1 EACH CAP.SPRINK GT SCH ×2 (08:04→16:25)
[2018-03-25] MEDS: PANTOPRAZOLE 40 MG VIAL IV SCH ×2 (08:04→16:25)
[2018-03-25] MEDS: ASCORBIC ACID 500 MG TABLET GT SCH (08:04)
[2018-03-25] MEDS: DAKINS QUARTER STRENGTH (0.125%) 480 ML BOTTLE TOP SCH (08:04)
[2018-03-25] MEDS: ZINC SULFATE 220 MG CAPSULE GT SCH (08:04)
--- NOTE | 2018-03-25 09:42 | NUR ---
MS RN NOTES DR LOYD AT BEDSIDE. UPDATED ON PATIENT CONDITION. ROOM AIR 93%. OK TO DC ALL DAILY ABG'S PER MD
[2018-03-25] MEDS: GLUCERNA 1.2 1,000 ML BOTTLE GT PRN (10:00)
--- NOTE | 2018-03-25 10:01 | NUR ---
PER ORDER INCREASED PATIENT TUBE FEEDING NOW AT 40ML/HR. NO RESIDUAL
[2018-03-25 10:47] LABS: ABG BASE EXCESS 1.8 mmol/L; ABG OXYGEN SATURATION 93.9 % (92.0-98.5); ABG PCO2 37.8 mmHg (35.0-45.0); ABG PH 7.452 (7.350-7.450); ABG PO2 73.2 mmHg (75.0-100.0); AaDO2 52.9 mmHg; COHb 0.6 % (0.5-1.5); MetHb 0.7 % (0.0-1.5); O2Hb 92.7 % (94.0-97.0); SITE, ABG Left Radial; VENT MODE, BG 1 liter nasal cannula
[2018-03-25] MEDS: POTASSIUM CHLORIDE 20 MEQ POWDER PACKET GT SCH ×3 (12:19→14:44)
--- NOTE | 2018-03-25 14:30 | NUR ---
MS RN NOTES DAUGHTER BB AT BEDSIDE AND ALLOWED LINEN CHANGE, GOWN CHANGE. ALEX CARE. CATHETER CARE. REFUSING WOUND CARE OR BED BATH. STATING SHE WILL COMPLETE TONIGHT
[2018-03-25 16:00] VITALS: BP 140/45
--- NOTE | 2018-03-25 19:27 | NUR ---
MS RN CLOSING PATIENT STABLE. ALL DUE MEDS GIVEN AND ALL NEEDS MET. SAFETY PRECAUTIONS IN PLACE. TURNED Q2H AND OFFLOADED. TUBE FEEDING TOLERATED NO RESIDUAL NOTED. IVF ORDERED. NC 1LPM O2 SAT STABLE. CARE ENDORSED TO RN FOR LAURA
--- NOTE | 2018-03-25 19:27 | NUR ---
MS RN NOTES RECEIVED PT ON BED. A/0X1 CONFUSED. ON NASAL CANNULA 1L SATURATING WELL. IV ACCESS ON LEJ NS @75CC/HR/ HEAD OF BED ELEVATED. SIDE RAILS UP. CALL LIGHT IS WITHIN REACH. BED ALARM ON. WILL CONTINUE TO MONITOR PT CLOSELY.
[2018-03-25 20:00] VITALS: BP 133/43
[2018-03-25] MEDS: ENOXAPARIN SODIUM 40 MG/0.4 ML DISP.SYRIN SQ SCH (22:33)
--- NOTE | 2018-03-25 23:16 | NUR ---
MS RN NOTES WOUND CARE DONE BY THE DAUGHTER OF THE PATIENT. RN AT THE BEDSIDE ASSISTING THE DAUGHTER WITH WOUND CARE AND BED BATH
[2018-03-26] VITALS: BP 130/44
[2018-03-26] MEDS: ACETYLCYSTEINE 10% SOLN 400 MG/4 ML VIAL NEB SCH ×4 (00:17→23:32)
[2018-03-26] MEDS: ALBUTEROL HALF STRENGTH 1.25 MG/3 ML VIAL.NEB NEB SCH ×4 (01:54→19:19)
[2018-03-26] MEDS: IPRATROPIUM NEB FS 0.5 MG/2.5 ML AMPUL.NEB NEB SCH ×4 (01:54→19:19)
[2018-03-26] MEDS: VANCOMYCIN 500 MG in IV D5W 100 ML IV SCH ×2 (02:00→16:50)
[2018-03-26 04:00] VITALS: BP 143/53
[2018-03-26] MEDS: PIPERACILLIN /TAZOBACTAM 2.25 G in IV D5W 50 ML IV SCH ×4 (05:00→23:08)
[2018-03-26 06:58] LABS: CALCIUM, SERUM 8.5 mg/dL (8.5-10.1); CARBON DIOXIDE 25 mmol/L (21-32); CHLORIDE 109 mmol/L (98-107); CREATININE 0.6 mg/dL (0.6-1.3); GLUCOSE 152 mg/dL (74-106); POTASSIUM 4.1 mmol/L (3.5-5.1); SODIUM SERUM 143 mmol/L (136-145); UREA NITROGEN, BLOOD 7 mg/dL (7-18)
--- NOTE | 2018-03-26 07:18 | NUR ---
MS RN NOTES NO ACUTE CHANGES NOTED DURING THE SHIFT. PROVIDED COMFORT AND SAFETY. DUE MEDS GIVEN. WILL ENDORSE TO THE AM NURSE FOR LAURA.
[2018-03-26 08:00] VITALS: BP 129/43
[2018-03-26] MEDS ORDERED: DEXTROSE 50%-WATER 50 ML DISP.SYRIN IV PRN (09:30)
[2018-03-26] MEDS: PANTOPRAZOLE 40 MG VIAL IV SCH ×2 (09:51→16:50)
[2018-03-26] MEDS: ASCORBIC ACID 500 MG TABLET GT SCH (09:51)
[2018-03-26] MEDS: LACTOBACILLUS RHAMNOSUS GG 1 EACH CAP.SPRINK GT SCH ×2 (09:51→16:56)
[2018-03-26] MEDS: ZINC SULFATE 220 MG CAPSULE GT SCH (09:51)
[2018-03-26] MEDS: DAKINS QUARTER STRENGTH (0.125%) 480 ML BOTTLE TOP SCH (09:53)
[2018-03-26] MEDS ORDERED: METOPROLOL TARTRATE 50 MG TABLET GT PRN (12:00)
[2018-03-26] MEDS: BLOOD SUGAR DIAGNOSTIC 1 EACH STRIP IN SCH ×3 (13:04→23:30)
[2018-03-26] MEDS: LEVOTHYROXINE SODIUM 25 MCG TABLET GT SCH (13:04)
[2018-03-26] MEDS: FERROUS SULFATE (325 MG) 325 MG/TAB TABLET GT SCH ×2 (13:04→16:50)
[2018-03-26] MEDS: METFORMIN 500 MG TABLET GT SCH ×2 (13:04→16:50)
[2018-03-26 16:00] VITALS: BP 114/36
[2018-03-26] MEDS: GLUCERNA 1.2 1,000 ML BOTTLE GT PRN (16:59)
[2018-03-26] MEDS: SANTYL TP SCH (16:59)
[2018-03-26] MEDS: SIMVASTATIN 20 MG TABLET GT SCH (18:49)
[2018-03-26] MEDS: EPOETIN ALFA (10,000 UNIT) 10,000 UNIT/ML VIAL IJ SCH (18:50)
[2018-03-26 20:00] VITALS: BP 155/66
[2018-03-26] MEDS: ENOXAPARIN SODIUM 40 MG/0.4 ML DISP.SYRIN SQ SCH (22:33)
[2018-03-26] MEDS: INSULIN REGULAR, HUMAN 100 UNIT/ML 3 ML VIAL SQ PRN (23:30)
--- NOTE | 2018-03-26 23:52 | NUR ---
RN MS NOTES DAUGHTER DID THE WOUND TREATMENT TO PATIENT HERSELF AND NOT FOLLOWING THE EXACT ORDER. EXPLAINED RISKS AND BENEFITS X 3 AND STILL INSISTED TO DO HER MOM'S WOUND TREATMENT DRESSING CHANGES
[2018-03-27] MEDS: ALBUTEROL HALF STRENGTH 1.25 MG/3 ML VIAL.NEB NEB SCH ×4 (00:37→19:35)
[2018-03-27] MEDS: IPRATROPIUM NEB FS 0.5 MG/2.5 ML AMPUL.NEB NEB SCH ×4 (00:37→19:35)
[2018-03-27] MEDS: VANCOMYCIN 500 MG in IV D5W 100 ML IV SCH ×2 (03:38→15:45)
[2018-03-27] MEDS: IV NS 0.9% 1,000 ML IV PRN (03:49)
[2018-03-27 04:00] VITALS: BP 156/59
[2018-03-27] MEDS: PIPERACILLIN /TAZOBACTAM 2.25 G in IV D5W 50 ML IV SCH ×2 (05:02→11:53)
[2018-03-27] MEDS: BLOOD SUGAR DIAGNOSTIC 1 EACH STRIP IN SCH ×3 (05:21→17:19)
[2018-03-27] MEDS: INSULIN REGULAR, HUMAN 100 UNIT/ML 3 ML VIAL SQ PRN ×2 (05:22→17:22)
[2018-03-27 06:47] LABS: CALCIUM, SERUM 8.3 mg/dL (8.5-10.1); CARBON DIOXIDE 28 mmol/L (21-32); CHLORIDE 106 mmol/L (98-107); CREATININE 0.5 mg/dL (0.6-1.3); GLUCOSE 144 mg/dL (74-106); POTASSIUM 4.3 mmol/L (3.5-5.1); SODIUM SERUM 141 mmol/L (136-145); UREA NITROGEN, BLOOD 6 mg/dL (7-18)
[2018-03-27 07:10] LABS: BASOPHILS % (AUTO) 0.2 % (0.0-2.0); HEMATOCRIT 27 % (33-45); HEMOGLOBIN 8.4 g/dL (11.5-14.8); LYMPHOCYTES # (AUTO) 2.1 /CMM (0.8-4.8); LYMPHOCYTES % (AUTO) 20.5 % (20.0-44.0); MEAN CORPUSCULAR HGB CONC 31 g/dl (31.0-36.0); MEAN CORPUSCULAR VOLUME 75 fL (82-100); MONOCYTES # (AUTO) 0.7 /CMM (0.1-1.30); MONOCYTES % (AUTO) 6.7 % (2.0-12.0); NEUTROPHILS # (AUTO) 6.8 /CMM (1.8-8.9); NEUTROPHILS % (AUTO) 67.6 % (43.0-81.0); PLATELET COUNT (AUTO) 492 /CMM (150-450); RDW COEFFICIENT OF VARIATION 19.9 (11.5-15.0); RED BLOOD CELL COUNT(AUTO) 3.58 MIL/uL (4.0-5.2); WHITE BLOOD COUNT (AUTO) 10.1 K/uL (4.3-11.0)
--- NOTE | 2018-03-27 07:55 | NUR ---
RN NOTE RECEIVED PATIENT ALERT AND ORIENTED X1, NON-VERBAL BUT IS RESPONSIVE TO VERBAL & TACTILE STIMULI WITH OPEN EYES. BREATHING EVEN & UNLABORED, TOLERATING 02 @ 1LPM VIA NC. NO DISCOMFORT OR DISTRESS NOTED. LEFT EXTERNAL JUGULAR IV INTACT & PATENT. G-TUBE INTACT AND PATENT FLUSHING WELL. WILL HOLD ALL AM MEDICATIONS SECONDARY TO EGD PROCEDURE THIS MORNING. NO RESIDUAL NOTED AT THIS TIME. F/C INTACT AND PATENT AND DRAINING ADEQUATELY. FLEXISEAL IN PLACE W/ LIQUID BROWN OUTPUT. SAFETY MEASURES IN PLACE. BED LOW AND LOCKED POSITION. WILL CONTINUE TO MONITOR CLOSELY.
[2018-03-27] MEDS: ACETYLCYSTEINE 10% SOLN 400 MG/4 ML VIAL NEB SCH ×3 (07:56→23:19)
[2018-03-27 08:00] VITALS: BP 156/49
--- NOTE | 2018-03-27 08:10 | NUR ---
RN NOTE PATIENT'S DAUGHTER REFUSED TO SIGN CONSENT FOR EGD PROCEDURE AND ONLY WANTS PATIENT TO HAVE HER G-TUBE REPLACED AND NOT HAVE A SCOPE DOWN PATIENT THROAT. DAUGHTER WOULD LIKE TO SPEAK WITH SURGEON. O.R TEAM ZULMA NOTIFIED AND AWARE. WILL CONTINUE TO FOLLOW UP.
[2018-03-27] MEDS: FERROUS SULFATE (325 MG) 325 MG/TAB TABLET GT SCH ×3 (09:00→16:52)
[2018-03-27] MEDS: PANTOPRAZOLE 40 MG VIAL IV SCH ×2 (09:00→16:52)
[2018-03-27] MEDS: LOSARTAN POTASSIUM 50 MG TABLET GT SCH (09:00)
[2018-03-27] MEDS: LEVOTHYROXINE SODIUM 25 MCG TABLET GT SCH (09:00)
[2018-03-27] MEDS: ZINC SULFATE 220 MG CAPSULE GT SCH (09:00)
[2018-03-27] MEDS: METFORMIN 500 MG TABLET GT SCH ×2 (09:00→16:52)
[2018-03-27] MEDS: ASCORBIC ACID 500 MG TABLET GT SCH (09:00)
[2018-03-27] MEDS: LACTOBACILLUS RHAMNOSUS GG 1 EACH CAP.SPRINK GT SCH ×2 (09:00→16:52)
--- NOTE | 2018-03-27 09:35 | NUR ---
RN NOTE CALLED O.R TEAM SPOKE TO ZULMA TO FOLLOW UP, HE STATED HE WILL LET US KNOW WHEN HE KNOWS MORE OF WHAT WILL HAPPEN WITH PATIENT AND PROCEDURE. DAUGHTER MADE AWARE.
[2018-03-27] MEDS: DAKINS QUARTER STRENGTH (0.125%) 480 ML BOTTLE TOP SCH (09:56)
[2018-03-27] MEDS: SANTYL TP SCH (09:57)
--- NOTE | 2018-03-27 10:25 | NUR ---
RN NOTE CALLED O.R TEAM SPOKE TO ZULMA TO FOLLOW UP PROCEDURE. HE STATED TO CONTACT DR CASTILLO, CALLED AND SPOKE WITH DR CASTILLO AND HE STATED TO CONTACT HORACE NGUYỄN, CALLED HORACE NGUYỄN AND SPOKE WITH HER REGARDING PATIENTS PROCEDURE AND SHE STATED TO SPEAK WITH PATIENT'S DAUGHTER TIMOTEO.
--- NOTE | 2018-03-27 10:50 | NUR ---
RN NOTE ALL CONSENT SIGNED AND PATENT'S DAUGHTER AGREED AND PROCEDURE WILL BE DONE TOMORROW
[2018-03-27 16:00] VITALS: BP 132/44
[2018-03-27] MEDS: SIMVASTATIN 20 MG TABLET GT SCH (16:55)
--- NOTE | 2018-03-27 19:10 | NUR ---
RN NOTE PATIENT REMAINED STABLE THROUGHOUT SHIFT. NO ACUTE CHANGES OR DISTRESS NOTED. WILL ENDORSE TO NEXT SHIFT ABOUT PATIENTS EGD TOMORROW AND NPO AFTER MIDNIGHT.
--- NOTE | 2018-03-27 19:30 | NUR ---
RN/ MS NOTES: RECEIVED PT. IN BED W/ HOB ELEVATED W/ O2 @ 1LPM VIA N/C SAT 98%. NO FACIAL GRIMACES OR MOANING NOTED. A/O X 1. EYE OPEN. NON VERBAL. RESPONSIVE TO TACTILE STIMULI. BREATHING EVEN AND UNLABORED. HAS LEFT EJ PATENT AND INTACT W/ NO S/S OF INFECTION/INFILTRATION NOTED. FLEXISEAL INTACT AND INPLACE W/ BROWN LIQUID STOOL. W/ GTF INTACT AND PATENT W/ NO RESIDUAL NOTED. ON CONTACT ISOLATION. MAINTAIN ASPIRATION PRECAUTION. F/C PATENT AND INTACT W/GRAVITY. BEDS LOCKED. CALL LIGHT W/ REACH. WILL CONTINUE TO MONITOR. DAUGHTER BY BEDSIDE.
[2018-03-27 20:00] VITALS: BP 147/45
[2018-03-27] MEDS: ENOXAPARIN SODIUM 40 MG/0.4 ML DISP.SYRIN SQ SCH (21:54)
[2018-03-28] MEDS: BLOOD SUGAR DIAGNOSTIC 1 EACH STRIP IN SCH ×4 (00:30→17:57)
[2018-03-28] MEDS: INSULIN REGULAR, HUMAN 100 UNIT/ML 3 ML VIAL SQ PRN ×2 (00:33→06:08)
[2018-03-28] MEDS: IPRATROPIUM NEB FS 0.5 MG/2.5 ML AMPUL.NEB NEB SCH ×4 (01:17→20:27)
[2018-03-28] MEDS: ALBUTEROL HALF STRENGTH 1.25 MG/3 ML VIAL.NEB NEB SCH ×4 (01:17→20:27)
[2018-03-28] MEDS: IV NS 0.9% 1,000 ML IV PRN ×2 (03:58→20:17)
[2018-03-28 04:00] VITALS: BP 141/54
[2018-03-28 06:43] LABS: BASOPHILS % (AUTO) 0.4 % (0.0-2.0); EOSINOPHILS % (AUTO) 4.3 % (0.0-6.0); HEMATOCRIT 27 % (33-45); HEMOGLOBIN 8.4 g/dL (11.5-14.8); LYMPHOCYTES # (AUTO) 2.1 /CMM (0.8-4.8); LYMPHOCYTES % (AUTO) 25.6 % (20.0-44.0); MEAN CORPUSCULAR HGB CONC 32 g/dl (31.0-36.0); MEAN CORPUSCULAR VOLUME 76 fL (82-100); MONOCYTES # (AUTO) 0.7 /CMM (0.1-1.30); NEUTROPHILS # (AUTO) 5.1 /CMM (1.8-8.9); NEUTROPHILS % (AUTO) 61.7 % (43.0-81.0); PLATELET COUNT (AUTO) 463 /CMM (150-450); RDW COEFFICIENT OF VARIATION 19.9 (11.5-15.0); RED BLOOD CELL COUNT(AUTO) 3.51 MIL/uL (4.0-5.2); WHITE BLOOD COUNT (AUTO) 8.3 K/uL (4.3-11.0)
[2018-03-28 07:15] LABS: CARBON DIOXIDE 27 mmol/L (21-32); CHLORIDE 107 mmol/L (98-107); CREATININE 0.5 mg/dL (0.6-1.3); GLUCOSE 118 mg/dL (74-106); MAGNESIUM 1.7 mg/dL (1.8-2.4); PHOSPHORUS 2.3 mg/dL (2.5-4.9); POTASSIUM 3.1 mmol/L (3.5-5.1); SODIUM SERUM 141 mmol/L (136-145); UREA NITROGEN, BLOOD 4 mg/dL (7-18)
--- NOTE | 2018-03-28 07:50 | NUR ---
RN NOTE RECEIVED PATIENT ALERT AND ORIENTED X1, NON-VERBAL BUT IS RESPONSIVE TO VERBAL & TACTILE STIMULI WITH OPEN EYES. BREATHING EVEN & UNLABORED, TOLERATING 02 @ 1LPM VIA NC. NO DISCOMFORT OR DISTRESS NOTED. LEFT EXTERNAL JUGULAR IV INTACT & PATENT. G-TUBE INTACT AND PATENT FLUSHING WELL. WILL HOLD ALL AM MEDICATIONS SECONDARY TO EGD PROCEDURE SOME TIME TODAY, NO INDICATIONS OF A SPECIFIC TIME. NO RESIDUAL NOTED AT THIS TIME. F/C INTACT AND PATENT AND DRAINING ADEQUATELY. FLEXISEAL IN PLACE W/ LIQUID BROWN OUTPUT. SAFETY MEASURES IN PLACE. BED LOW AND LOCKED POSITION. WILL CONTINUE TO MONITOR CLOSELY.
[2018-03-28 08:00] VITALS: BP 140/55
[2018-03-28] MEDS: METFORMIN 500 MG TABLET GT SCH ×2 (09:00→17:41)
[2018-03-28] MEDS: LOSARTAN POTASSIUM 50 MG TABLET GT SCH (09:00)
[2018-03-28] MEDS: LEVOTHYROXINE SODIUM 25 MCG TABLET GT SCH (09:00)
[2018-03-28] MEDS: ZINC SULFATE 220 MG CAPSULE GT SCH (09:00)
[2018-03-28] MEDS: FERROUS SULFATE (325 MG) 325 MG/TAB TABLET GT SCH ×3 (09:00→17:41)
[2018-03-28] MEDS: ASCORBIC ACID 500 MG TABLET GT SCH (09:00)
[2018-03-28] MEDS: PANTOPRAZOLE 40 MG VIAL IV SCH ×2 (09:00→17:41)
[2018-03-28] MEDS: LACTOBACILLUS RHAMNOSUS GG 1 EACH CAP.SPRINK GT SCH ×2 (09:00→17:41)
[2018-03-28] MEDS: DAKINS QUARTER STRENGTH (0.125%) 480 ML BOTTLE TOP SCH (10:01)
[2018-03-28] MEDS: SANTYL TP SCH (10:01)
[2018-03-28] MEDS: ACETYLCYSTEINE 10% SOLN 400 MG/4 ML VIAL NEB SCH ×2 (11:13→15:52)
[2018-03-28] MEDS: Magnesium 1GM/D5W 100ML PREMIX 100 ML IV SCH ×2 (12:25→13:28)
[2018-03-28] MEDS ORDERED: POTASSIUM CHLORIDE 20 MEQ TAB.PRT.SR PO SCH (12:30)
[2018-03-28] MEDS: POTASSIUM CL. PREMIX PERIPHER. 50 ML IV SCH ×4 (13:21→16:05)
[2018-03-28 16:00] VITALS: BP 152/55
--- NOTE | 2018-03-28 16:00 | NUR ---
RN NOTE PATIENT DID NOT HAVE AN EGD WITH PEG REPLACEMENT. RESUME ALL FEEDINGS AND MEDICATIONS, NPO AFTER MIDNIGHT. THEY WILL TRY AGAIN TOMORROW IN THE AM. WILL ENDORSE TO NEXT SHIFT.
[2018-03-28] MEDS ORDERED: NEUTRA PHOS 1 POWD.PACKET GT ONE (17:00)
[2018-03-28] MEDS: GLUCERNA 1.2 1,000 ML BOTTLE GT PRN (17:34)
[2018-03-28] MEDS: SIMVASTATIN 20 MG TABLET GT SCH (17:41)
--- NOTE | 2018-03-28 19:29 | NUR ---
RN NOTE PATIENT REMAINED STABLE THROUGHOUT SHIFT. NO ACUTE CHANGES OR DISTRESS NOTED. WILL ENDORSE TO NEXT SHIFT ABOUT PATIENTS EGD WITH PEG PLACEMENT TOMORROW AND NPO AFTER MIDNIGHT.
--- NOTE | 2018-03-28 19:30 | NUR ---
RECEIVED REPORT FROM DAY SHIFT, PATIENT IS GOING TO BE NPO AFTER MN FOR PEG PLACEMENT SPOKE WITH GOPI TORRES AND SHE EXPLAINED THAT THE FAMILY CONCERNED ABOUT PATIENT'S WOUND CARE AND THE DAUGHTER WANTS TO DO THE WOUND CARE AND SKIN TREATMENTS HERSELF
[2018-03-28 20:00] VITALS: BP 135/52
--- NOTE | 2018-03-28 20:30 | NUR ---
LOVENOX ON HOLD DUE TO PATIENT'S SURGICAL PROCEDURE IN AM
--- NOTE | 2018-03-28 21:00 | NUR ---
PATIENT'S DAUGHTER ARRIVED AND ASKED TO DO PATIENT'S DRESSING CHANGES AND WOUND CARE PATIENT'S DAUGHTER AND THE PRIMARY RN TOGETHER DID THE DRESSING CHANGES AND WOUND CARE. PATIENT'S VSS, AFEBRILE, NO DISTRESS NOTED. PATIENT TURNED AND REPOSITIONED FOR MORE COMFORT
--- NOTE | 2018-03-29 | NUR ---
PATIENT'S BS 142- NO COVERAGE GIVEN, PATIENT IS NPO FOR PEG REPLACEMENT PROCEDURE SPOKE WITH PATIENT'S DAUGHTER, UPDATED ON PATIENT'S CONDITION. CONTINUE TO MONITOR
[2018-03-29] MEDS: BLOOD SUGAR DIAGNOSTIC 1 EACH STRIP IN SCH ×3 (00:05→12:37)
[2018-03-29] MEDS: INSULIN REGULAR, HUMAN 100 UNIT/ML 3 ML VIAL SQ PRN ×2 (00:06→05:27)
[2018-03-29 04:00] VITALS: BP 147/56
[2018-03-29 06:28] LABS: BASOPHILS % (AUTO) 0.3 % (0.0-2.0); EOSINOPHILS % (AUTO) 4.1 % (0.0-6.0); HEMATOCRIT 29 % (33-45); HEMOGLOBIN 8.9 g/dL (11.5-14.8); LYMPHOCYTES # (AUTO) 1.6 /CMM (0.8-4.8); LYMPHOCYTES % (AUTO) 16.7 % (20.0-44.0); MEAN CORPUSCULAR HGB CONC 31 g/dl (31.0-36.0); MEAN CORPUSCULAR VOLUME 76 fL (82-100); MONOCYTES # (AUTO) 0.8 /CMM (0.1-1.30); NEUTROPHILS # (AUTO) 6.7 /CMM (1.8-8.9); NEUTROPHILS % (AUTO) 70.9 % (43.0-81.0); PLATELET COUNT (AUTO) 511 /CMM (150-450); RDW COEFFICIENT OF VARIATION 20.4 (11.5-15.0); RED BLOOD CELL COUNT(AUTO) 3.77 MIL/uL (4.0-5.2); WHITE BLOOD COUNT (AUTO) 9.5 K/uL (4.3-11.0)
[2018-03-29 06:54] LABS: CARBON DIOXIDE 27 mmol/L (21-32); CHLORIDE 107 mmol/L (98-107); CREATININE 0.5 mg/dL (0.6-1.3); GLUCOSE 141 mg/dL (74-106); MAGNESIUM 2.2 mg/dL (1.8-2.4); PHOSPHORUS 2.6 mg/dL (2.5-4.9); POTASSIUM 3.2 mmol/L (3.5-5.1); SODIUM SERUM 142 mmol/L (136-145); UREA NITROGEN, BLOOD 4 mg/dL (7-18)
[2018-03-29] MEDS: IPRATROPIUM NEB FS 0.5 MG/2.5 ML AMPUL.NEB NEB SCH ×2 (07:21→15:03)
[2018-03-29] MEDS: ALBUTEROL HALF STRENGTH 1.25 MG/3 ML VIAL.NEB NEB SCH ×2 (07:21→15:02)
[2018-03-29] MEDS: ACETYLCYSTEINE 10% SOLN 400 MG/4 ML VIAL NEB SCH ×3 (07:22→15:03)
--- NOTE | 2018-03-29 07:30 | NUR ---
RN NOTE RECEIVED PATIENT ALERT AND ORIENTED X1, NON-VERBAL BUT IS RESPONSIVE TO VERBAL & TACTILE STIMULI WITH OPEN EYES. BREATHING EVEN & UNLABORED, TOLERATING 02 @ 1LPM VIA NC. NO DISCOMFORT OR DISTRESS NOTED. LEFT EXTERNAL JUGULAR IV INTACT & PATENT. G-TUBE INTACT AND PATENT FLUSHING WELL. CURRENTLY NPO AT THIS TIME. NO RESIDUAL NOTED AT THIS TIME. F/C INTACT AND PATENT AND DRAINING ADEQUATELY. FLEXISEAL IN PLACE W/ LIQUID BROWN OUTPUT. SAFETY MEASURES IN PLACE. BED LOW AND LOCKED POSITION. WILL CONTINUE TO MONITOR CLOSELY.
[2018-03-29] MEDS ORDERED: ANESTHESIA TRAY IN PYXIS 1 EA TRAY MC ONE (07:31)
--- NOTE | 2018-03-29 07:42 | NUR ---
RN NOTE ZULMA FROM [facility] TEAM PICKED UP PATIENT FOR EGD WITH PEG PLACEMENT. ALL CONSENT FORMS SIGN AND CHECKLIST DONE. DAUGHTER WAS NOTIFIED AND MADE AWARE.
[2018-03-29] MEDS ORDERED: KETAMINE HCL (500MG/10ML) 50 MG/ML VIAL ONE (07:53)
[2018-03-29 08:00] VITALS: BP 141/58
--- NOTE | 2018-03-29 08:40 | NUR ---
RN NOTE FELI FROM [facility] CALLED REPORTING PATIENT IS IN RECOVERY AND IN STABLE CONDITION. WILL BRING BACK PATIENT.
--- NOTE | 2018-03-29 08:55 | NUR ---
RN NOTE FELI BROUGHT BACK PATIENT, IN STABLE CONDITION NO DISTRESS NOTED. NEW ORDERS RECEIVED G-TUBE MAY RESUME MEDS AND FEEDING, CARRIED OUT AND NOTED
[2018-03-29] MEDS: FERROUS SULFATE (325 MG) 325 MG/TAB TABLET GT SCH ×3 (09:22→16:13)
[2018-03-29] MEDS: ASCORBIC ACID 500 MG TABLET GT SCH (09:22)
[2018-03-29] MEDS: METFORMIN 500 MG TABLET GT SCH ×2 (09:22→16:13)
[2018-03-29] MEDS: PANTOPRAZOLE 40 MG VIAL IV SCH ×2 (09:22→16:13)
[2018-03-29] MEDS: LACTOBACILLUS RHAMNOSUS GG 1 EACH CAP.SPRINK GT SCH ×2 (09:22→16:13)
[2018-03-29] MEDS: ZINC SULFATE 220 MG CAPSULE GT SCH (09:22)
[2018-03-29] MEDS: LEVOTHYROXINE SODIUM 25 MCG TABLET GT SCH (09:22)
[2018-03-29 09:24] VITALS: BP 141/58
[2018-03-29] MEDS: LOSARTAN POTASSIUM 50 MG TABLET GT SCH (09:24)
[2018-03-29] MEDS: DAKINS QUARTER STRENGTH (0.125%) 480 ML BOTTLE TOP SCH (09:26)
[2018-03-29] MEDS: SANTYL TP SCH (09:26)
[2018-03-29] MEDS ORDERED: GLUCERNA 1.2 1,000 ML BOTTLE GT PRN (09:30)
[2018-03-29] MEDS ORDERED: POTASSIUM CHLORIDE 20 MEQ TAB.PRT.SR PO ONE (11:00)
[2018-03-29] MEDS ORDERED: ALBU18HF2 INH (11:11)
[2018-03-29] MEDS ORDERED: Zinc Sulfate GT (11:11)
[2018-03-29] MEDS ORDERED: ASCO500T9 GT (11:11)
[2018-03-29] MEDS ORDERED: NUT.237L45 GT (11:11)
[2018-03-29] MEDS: EPOETIN ALFA (10,000 UNIT) 10,000 UNIT/ML VIAL IJ SCH (16:13)
--- NOTE | 2018-03-29 17:45 | NUR ---
RN NOTE 82 YEAR OLD FEMALE DISCHARGED TO HOME IN STABLE CONDITION, COMPLIANT WITH MEDICATIONS, COOPERATIVE WITH TREATMENT PLANS. MEDICAL TREATMENTS PLANS DEFERRED FOR CONTINUAL MONITORING. EDUCATED PATIENT AND DAUGHTER ABOUT AFTER CARE AND COPIES PROVIDED. RETURNED PERSONAL BELONGINGS TO PATIENTS DAUGHTER. MEDICATION RECONCILED. WOUND PICTURES TAKEN AND DOCUMENTED IN CHART. PATIENT LEFT THE UNIT AT 1745 VIA AMBULANCE
--- NOTE | 2018-04-03 14:01 | NUR ---
ROBERTO received a call from [facility] bulk intake worker Myesha inquiring if pt. was discharged home. ROBERTO informed ROBERTO Brunner, pt was discharged home with home health.
== END 2018-03-29 17:43 | disposition home or self-care (01) | DRG 871 ==
LOC: ER 12:07 → ICU 14:06 → TELE-TD 03-24 05:35 → MEDSG1 03-25 08:31
PROVIDERS: ADMIT Nurse Practitioner Acute Care; ATTEND Nurse Practitioner Acute Care
PROC: 5A09457 Assistance with Respiratory Ventilation, 24-96 Consecutive Hours, Continuous Positive Airway Pressure (ICD-10-PCS; principal; 2018-03-21)
PROC: 30233N1 Transfusion of Nonautologous Red Blood Cells into Peripheral Vein, Percutaneous Approach (ICD-10-PCS; 2018-03-22)
PROC: 0D20XUZ Change Feeding Device in Upper Intestinal Tract, External Approach (ICD-10-PCS; 2018-03-29)
PROC: 0DP6XUZ Removal of Feeding Device from Stomach, External Approach (ICD-10-PCS; 2018-03-29)
DX: A41.9 Sepsis, unspecified organism (principal); J96.01 Acute respiratory failure with hypoxia; E43 Unspecified severe protein-calorie malnutrition; R65.21 Severe sepsis with septic shock; J15.6 Pneumonia due to other Gram-negative bacteria; G93.41 Metabolic encephalopathy; L89.314 Pressure ulcer of right buttock, stage 4; L89.324 Pressure ulcer of left buttock, stage 4; J15.9 Unspecified bacterial pneumonia; L89.894 Pressure ulcer of other site, stage 4; R53.2 Functional quadriplegia; L89.624 Pressure ulcer of left heel, stage 4; L89.524 Pressure ulcer of left ankle, stage 4; L89.614 Pressure ulcer of right heel, stage 4; D68.59 Other primary thrombophilia; I69.851 Hemiplegia and hemiparesis following other cerebrovascular disease affecting right dominant side; K92.2 Gastrointestinal hemorrhage, unspecified; K94.23 Gastrostomy malfunction; R13.10 Dysphagia, unspecified; E88.09 Other disorders of plasma-protein metabolism, not elsewhere classified; E11.9 Type 2 diabetes mellitus without complications; D50.9 Iron deficiency anemia, unspecified; D72.829 Elevated white blood cell count, unspecified; E78.5 Hyperlipidemia, unspecified; I70.90 Unspecified atherosclerosis; E03.9 Hypothyroidism, unspecified; Z66 Do not resuscitate; I10 Essential (primary) hypertension; E86.1 Hypovolemia; Z74.01 Bed confinement status; F01.50 Vascular dementia, unspecified severity, without behavioral disturbance, psychotic disturbance, mood disturbance, and anxiety; E87.6 Hypokalemia; Z87.01 Personal history of pneumonia (recurrent); Z88.2 Allergy status to sulfonamides; Z68.22 Body mass index [BMI] 22.0-22.9, adult; Z79.84 Long term (current) use of oral hypoglycemic drugs; S71.002A Unspecified open wound, left hip, initial encounter; X58.XXXA Exposure to other specified factors, initial encounter; Y93.9 Activity, unspecified; Y92.009 Unspecified place in unspecified non-institutional (private) residence as the place of occurrence of the external cause; D47.3 Essential (hemorrhagic) thrombocythemia; D50.0 Iron deficiency anemia secondary to blood loss (chronic); M24.562 Contracture, left knee; M24.561 Contracture, right knee; R62.7 Adult failure to thrive; M62.50 Muscle wasting and atrophy, not elsewhere classified, unspecified site; Y84.8 Other medical procedures as the cause of abnormal reaction of the patient, or of later complication, without mention of misadventure at the time of the procedure; Y73.8 Miscellaneous gastroenterology and urology devices associated with adverse incidents, not elsewhere classified
CPT/HCPCS: 31720; 36415; 36600; 71045-TC; 80048-TC; 80076-TC; 80202-TC; 81000-TC; 82272-TC; 82728-TC; 82803-TC; 82962-TC; 83540-TC; 83605-TC; 83735-TC; 84100-TC; 84484-TC; 85025-TC; 85610-TC; 85730-TC; 86850-TC; 86921-TC; 87040-TC; 87070-TC; 87081-TC; 87086-TC; 94760-TC; 94799-TC; A4606; A6253; A6402; A6403; C9113; J0885; J1650; J1815; J2060; J2543; J3370; J3475; J3480; J3490; J7030; J7050; J7060; P9016-BL; Z7610

== ENCOUNTER 2018-04-24 20:15 | Inpatient (IN) | payer MEDICARE, OTHER ==
[~2018-04-24] VITALS: Ht 152.4 cm; Wt 56.2 kg
[~2018-04-24 20:15] MED LIST: ALBU18HF2 INH; ASCO500T9 GT; COLL30OI TP; EPOE1VIA12 SQ; ERTA1VIA2 IV; FERR325T23 GT; LEVO25TA2 GT; LINE600T GT; LOSA100T3 GT; METF-440 GT; METO50TA16 GT; MUPI22OI2 TP; NUT.237L45 GT; SIMV20TA6 GT; Zinc Sulfate GT
[2018-04-24] MEDS ORDERED: IV NS 0.9% 500 ML BAG IV ONE (20:30)
--- NOTE | 2018-04-24 20:40 | NUR ---
BB RA88 FROM HOME FOR C/O LOW 02 SAT ON RA 87%. NOTED OBTUNDED, GTUBE, CONTRACTED, MULTIPLE PRESSURE SORES. IV ACCESS DIRECTOR TELEVISION FROM HOME HEALTH NURSE. CURRENTLY ON ABX PER DTR. SEEN BY MD FOR EVAL. NOTED FEBRILE. SAFETY AND COMFORT MEASURES PROVIDED. WILL MONITOR.
[2018-04-24 20:42] LABS: BASOPHILS # (AUTO) 0.4 /CMM (0.0-0.2); EOSINOPHILS % (AUTO) 1.4 % (0.0-6.0); HEMATOCRIT 23 % (33-45); HEMOGLOBIN 7.2 g/dL (11.5-14.8); LYMPHOCYTES # (AUTO) 2.5 /CMM (0.8-4.8); LYMPHOCYTES % (AUTO) 19.2 % (20.0-44.0); MEAN CORPUSCULAR HGB CONC 31 g/dl (31.0-36.0); MEAN CORPUSCULAR VOLUME 74 fL (82-100); MONOCYTES # (AUTO) 0.8 /CMM (0.1-1.30); NEUTROPHILS # (AUTO) 9.3 /CMM (1.8-8.9); NEUTROPHILS % (AUTO) 70.4 % (43.0-81.0); PLATELET COUNT (AUTO) 585 /CMM (150-450); RDW COEFFICIENT OF VARIATION 18.8 (11.5-15.0); RED BLOOD CELL COUNT(AUTO) 3.14 MIL/uL (4.0-5.2); WHITE BLOOD COUNT (AUTO) 13.2 K/uL (4.3-11.0)
--- NOTE | 2018-04-24 20:45 | NUR ---
IV ACCESS STARTED. BLOOD AND CULTURES DRAWN FOR LABS.
--- NOTE | 2018-04-24 20:50 | NUR ---
MEDICATED ORDERED. UNABLE TO GET THE URINE SAMPLE, DTR REFUSES TO TRY FURTHER WITH THE TEST. AWARE.
[2018-04-24 20:52] LABS: CARBON DIOXIDE 25 mmol/L (21-32); CHLORIDE 99 mmol/L (98-107); CREATININE 0.6 mg/dL (0.6-1.3); GLUCOSE 166 mg/dL (74-106); POTASSIUM 3.7 mmol/L (3.5-5.1); SODIUM SERUM 130 mmol/L (136-145); UREA NITROGEN, BLOOD 10 mg/dL (7-18)
[2018-04-24 20:57] LABS: INR 1.09 (0.85-1.15)
[2018-04-24 21:00] LABS: TROPONIN I 0.022 ng/mL (0.00-0.056)
[2018-04-24] MEDS ORDERED: MEROPENEM 1,000 MG in IV NS 0.9% 100 ML IV ONE (21:00)
[2018-04-24 21:04] LABS: ALANINE AMINOTRANSFERASE 20 U/L (12-78); ALKALINE PHOSPHATASE 138 U/L (46-116); ASPARTATE AMINOTRANSFERASE 30 U/L (15-37); BILIRUBIN,DIRECT 0.1 mg/dL (0.0-0.2); BILIRUBIN,TOTAL 0.3 mg/dL (0.2-1.0); TOTAL PROTEIN, SERUM 6.7 g/dL (6.4-8.2)
[2018-04-24 21:10] LABS: ALBUMIN 1.3 g/dL (3.4-5.0)
[2018-04-24] MEDS ORDERED: MEROPENEM 500 MG VIAL IV ONE (21:12)
--- NOTE | 2018-04-24 22:05 | NUR ---
REPORT GIVEN TO KISHA EDUARDO FOR TELE 113.
--- NOTE | 2018-04-24 22:13 | NUR ---
RYAN NGUYỄN AT FOR RUKHSANA.
--- NOTE | 2018-04-24 22:15 | NUR ---
TELE/RN LATE ENTRY. RECEIVE PATIENT FROM E.. VIA RPOMERENE ACCOMPANIED BY DAUGHTER. PATIENT IS AWAKE, NON VERBAL, APPEAR COMFORTABLE, NO DISTRESS NOTED. DAUGHTER TALKED TO THE NURSING GUEST RELATIONS MANAGER REQUESTING FOR PRIVATE ROOM. PATIENT MADE COMFORTABLE IN BED, ADMISSION DONE PER PROTOCOL, INFORMATIONS OBTAINED FROM THE DAUGHTER. DAUGHTER DOES NOT WANT THE WOUND TO BE OPENED AT THIS TIME, PER DAUGHTER THE WOUNDS WERE JUST TREATED/DRESSING CHANGED TODAY BY THE WOUND CARE NURSE COMING TO THEIR HOUSE. WILL MONITOR PATIENT. Addendum: 04/25/18 at 0620 by KISHA STEVENS RN TELE/RN PATIENT'S DAUGHTER REFUSED WOUNDS PICTURES.
[2018-04-24 22:35] VITALS: BP 112/52
[2018-04-24] MEDS ORDERED: HYDROCODONE/APAP 5/325MG 1 EACH TABLET PO PRN (23:00)
[2018-04-24] MEDS ORDERED: MAGNESIUM HYDROXIDE 30 ML UDC PO PRN (23:00)
[2018-04-24] MEDS ORDERED: ONDANSETRON HCL/PF 4 MG/2 ML VIAL IVP PRN (23:00)
[2018-04-24] MEDS ORDERED: MAG HYDROX/AL HYDROX/SIMETH 30 ML UDC PO PRN (23:00)
[2018-04-24] MEDS ORDERED: ZOLPIDEM TARTRATE 5 MG TABLET PO PRN (23:00)
[2018-04-24] MEDS ORDERED: Z GUARD REMEDY 2 OZ OINT TP PRN (23:00)
[2018-04-25] MEDS: IV NS 0.9% 1,000 ML IV PRN ×2 (00:15→18:02)
[2018-04-25] MEDS ORDERED: METOPROLOL TARTRATE 50 MG TABLET GT PRN (01:30)
[2018-04-25] MEDS ORDERED: MUPIROCIN OINT 2% 22 GM TUBE TP SCH (01:30)
[2018-04-25] MEDS ORDERED: COLLAGENASE 15 GM TUBE TP SCH (01:30)
[2018-04-25] MEDS ORDERED: DEXTROSE 50%-WATER 50 ML DISP.SYRIN IV PRN (01:30)
[2018-04-25 04:00] VITALS: BP 102/78
[2018-04-25] MEDS: GLUCERNA SHAKE 237 ML CAN GT PRN (04:24)
--- NOTE | 2018-04-25 04:35 | NUR ---
TELE/RN GTUBE POSITIVE PLACEMENT NOTED ON AUSCULTATION. GLUCERNA AT 35 MLS PER HOUR WAS STARTED ORDERED. WILL CONTINUE TO MONITOR.
--- NOTE | 2018-04-25 06:30 | NUR ---
TELE/RN PATIENT IS SLEEPING AT THIS TIME, AROUSABLE, APPEAR COMFORTABLE, NO DISTRESS NOTED, ALL NEEDS ATTENDED AT THIS TIME. WILL CONTINUE TO MONITOR.
[2018-04-25] MEDS: BLOOD SUGAR DIAGNOSTIC 1 EACH STRIP IN SCH ×3 (06:51→17:59)
[2018-04-25 07:06] LABS: CHOLESTEROL 76 mg/dL (<200); HDL CHOLESTEROL 37 mg/dL (40-60); LDL 30 mg/dL (0-99); THYROID STIMULATING HORMONE 3.782 uIU/mL (0.358-3.74); TRIGLYCERIDES 75 mg/dL (30-150)
[2018-04-25 07:07] LABS: CALCIUM, SERUM 8.4 mg/dL (8.5-10.1); CARBON DIOXIDE 22 mmol/L (21-32); CHLORIDE 104 mmol/L (98-107); CREATININE 0.5 mg/dL (0.6-1.3); GLUCOSE 146 mg/dL (74-106); MAGNESIUM 1.8 mg/dL (1.8-2.4); PHOSPHORUS 2.8 mg/dL (2.5-4.9); POTASSIUM 3.4 mmol/L (3.5-5.1); SODIUM SERUM 136 mmol/L (136-145); UREA NITROGEN, BLOOD 9 mg/dL (7-18)
[2018-04-25 07:15] LABS: BASOPHILS % (AUTO) 0.3 % (0.0-2.0); EOSINOPHILS % (AUTO) 1.5 % (0.0-6.0); HEMATOCRIT 24 % (33-45); HEMOGLOBIN 7.6 g/dL (11.5-14.8); LYMPHOCYTES # (AUTO) 1.8 /CMM (0.8-4.8); LYMPHOCYTES % (AUTO) 11.9 % (20.0-44.0); MEAN CORPUSCULAR HGB CONC 32 g/dl (31.0-36.0); MEAN CORPUSCULAR VOLUME 74 fL (82-100); MONOCYTES # (AUTO) 1.3 /CMM (0.1-1.30); MONOCYTES % (AUTO) 8.3 % (2.0-12.0); NEUTROPHILS # (AUTO) 11.9 /CMM (1.8-8.9); PLATELET COUNT (AUTO) 575 /CMM (150-450); RDW COEFFICIENT OF VARIATION 18.9 (11.5-15.0); RED BLOOD CELL COUNT(AUTO) 3.22 MIL/uL (4.0-5.2); WHITE BLOOD COUNT (AUTO) 15.2 K/uL (4.3-11.0)
--- NOTE | 2018-04-25 07:45 | NUR ---
TRAFFIC LIEUTENANT OPENING NOTE RECEIVED BEDSIDE SBAR REPORT ON THE PATIENT. PATIENT IS AWAKE, NON-VERBAL, RESPONSIVE TO TOUCH AND LIGHT PAIN. PATIENT IS IN BED, BED IS LOCKED IN LOWEST POSITION, SIDE RAILS UP X3, BED ALARM IS ON. PATIENT IS IN HIGH HOGUE'S POSITION. EXTERNAL TELE MONITOR READING ST 103. CARDIOTHORACIC ANESTHESIA TECHNICIAN AWARE. VS WNL. PATIENT REPOSITIONED FOR COMFORT/FUNCTIONAL ALIGNMENT OF THE LIMBS. ALL NEEDS ARE MET. WILL CONTINUE TO ASSESS/MONITOR THROUGHOUT THE SHIFT.
[2018-04-25 07:46] LABS: IRON, SERUM 10 ug/dl (50-175); TOTAL IRON BINDING CAPACITY 108 ug/dl (250-450)
[2018-04-25 08:00] VITALS: BP_SYST 106; BP_DIAS 48; BP_DIAS 78
[2018-04-25] MEDS: LEVOTHYROXINE SODIUM 25 MCG TABLET GT SCH (08:28)
[2018-04-25] MEDS: PANTOPRAZOLE 40 MG VIAL IV SCH (08:29)
[2018-04-25] MEDS: FERROUS SULFATE (325 MG) 325 MG/TAB TABLET GT SCH ×3 (08:29→18:00)
[2018-04-25] MEDS: MEROPENEM 1 G in IV NS 0.9% 100 ML IV SCH ×2 (09:52→21:35)
[2018-04-25] MEDS: ENOXAPARIN SODIUM 40 MG/0.4 ML DISP.SYRIN SQ SCH (09:54)
--- NOTE | 2018-04-25 10:20 | NUR ---
WOUND CARE CONSULT: ASSESSMENT LIMITED TO G TUBE SITE AT THIS TIME DUE TO PT'S DAUGHTER REFUSAL TO HAVE PT'S WOUND DRESSINGS REMOVED UNTIL SHE ARRIVES AT THE HOSPITAL, PER RN WHO SPOKE WITH DAUGHTER ON PHONE. G TUBE SITE HAS VERY SLIGHT REDNESS. SKIN TO BE KEPT CLEAN AND DRY. SURGICAL CONSULT CALLED TO DR KINSEY PER DR RENTERIA H & P. FIRST STEP MATTRESS ORDERED. ALL SKIN PROTECTION AND PRESSURE ULCER PREVENTION RECOMMENDATIONS DISCUSSED WITH NURSING STAFF. MD IN AGREEMENT WITH PLAN OF CARE.
[2018-04-25] MEDS ORDERED: POTASSIUM CHLORIDE 20 MEQ POWDER PACKET GT SCH (12:00)
--- NOTE | 2018-04-25 12:59 | NUR ---
BG 132 MG/DL. NO COVERAGE ADMINISTERED PER PATEINT'S DAUGHTER'S REQUEST.
--- NOTE | 2018-04-25 13:00 | NUR ---
SW was informed by caser up Martha Vega that pt's daughter continues to get in the pt' plan of care. 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 SW had filed an APS report on for the stage 4 wounds that pt. exhibited. ROBERTO contacted APS farmworker Myesha and left her a voicemail message requesting a call back.
[2018-04-25] MEDS: IPRATROPIUM NEB FS 0.5 MG/2.5 ML AMPUL.NEB NEB SCH ×4 (14:09→23:09)
[2018-04-25] MEDS: ALBUTEROL FS 2.5 MG/0.5 ML VIAL.NEB NEB SCH ×4 (14:09→23:09)
[2018-04-25] MEDS: ACETYLCYSTEINE 10% SOLN 400 MG/4 ML VIAL NEB SCH ×2 (15:49→23:09)
[2018-04-25 16:00] VITALS: BP 139/70
--- NOTE | 2018-04-25 16:00 | NUR ---
RN WAS ABLE TO TAKE PICTURES OF PATIENT'S WOUNDS WHEN THE DAUGHTER WAS PERFORMING THE WOUND CARE. DOCUMENTED AND PLACED IN THE CHART.
[2018-04-25] MEDS: SIMVASTATIN 20 MG TABLET GT SCH (18:00)
[2018-04-25] MEDS: INSULIN REGULAR, HUMAN 100 UNIT/ML 3 ML VIAL SQ PRN (18:19)
--- NOTE | 2018-04-25 18:35 | NUR ---
PATIENT'S DAUGHTER IS NOT-COMPLIANT WITH THE PLAN OF CARE AND INTERFERES WITH PATIENT'S CARE. THE DAUGHTER REFUSED FOR THE WOUND NURSE TO SEE PATIENT'S WOUNDS. REFUSED DR LAW, THE QUALITY CONTROL ASSOCIATE TO ASSESS PATIENT'S WOUNDS. PATIENT STATED THAT SHE HAS TO DO HER OWN WOUND CARE PER HER OWN SURGEON'S ORDER. GOPI TEMPLE INFORMED. CHARGE NURSE SIMA INFORMED. RISKS RELATED TO NON-COMPLIANCE DISCUSSED WITH THE DAUGHTER AT THE BEDSIDE.
--- NOTE | 2018-04-25 19:19 | NUR ---
POWER REACTOR SUPERVISOR OPENING NOTE RECEIVED BEDSIDE SBAR REPORT ON THE PATIENT. PATIENT IS AWAKE, NON-VERBAL, RESPONSIVE TO TOUCH AND LIGHT PAIN. PATIENT IS IN BED, BED IS LOCKED IN LOWEST POSITION, SIDE RAILS UP X3, BED ALARM IS ON. PATIENT IS IN HIGH HOGUE'S POSITION. EXTERNAL TELE MONITOR READING ST 103. CNC SET UP OPERATOR AWARE. VS WNL. PATIENT REPOSITIONED FOR COMFORT/FUNCTIONAL ALIGNMENT OF THE LIMBS. ALL NEEDS ARE MET. WILL CONTINUE TO ASSESS/MONITOR THROUGHOUT THE SHIFT.
--- NOTE | 2018-04-25 19:19 | NUR ---
UNDERGROUND SUPERVISOR CLOSING NOTE GAVE BEDSIDE SBAR REPORT ON THE PATIENT. PATIENT IS AWAKE, NON-VERBAL, RESPONSIVE TO TOUCH AND LIGHT PAIN. PATIENT IS IN BED, BED IS LOCKED IN LOWEST POSITION, SIDE RAILS UP X3, BED ALARM IS ON. PATIENT IS IN HIGH HOGUE'S POSITION. VS WNL. PATIENT REPOSITIONED FOR COMFORT/FUNCTIONAL ALIGNMENT OF THE LIMBS. ALL NEEDS ARE MET. ENDORSED TO THE FIELD CANE SCALER NURSE FOR LAURA.
--- NOTE | 2018-04-25 19:30 | NUR ---
MS/RN PATIENT IS AWAKE, NON VERBAL, APPEAR COMFORTABLE, NO SIGNS OF DISTRESS NOTED, HOB ELEVATED, GT FEEDING INFUSING, IVF INFUSING. WILL MONITOR. Addendum: 04/25/18 at 2030 by KISHA STEVENS RN DAUGHTER STATED "DON'T TOUCH THE DRESSING TONIGHT, I WILL BE THE ONE TO DO IT TOMORROW."
[2018-04-25 19:39] LABS: APPEARANCE,URINE CLOUDY (CLEAR); BILIRUBIN,URINE NEGATIVE (NEGATIVE); BLOOD, URINE 1+ Ery/uL (NEGATIVE); COLOR,URINE YELLOW (YELLOW); KETONES,URINE TRACE (NEGATIVE); LEUKOCYTE ESTERASE ,URINE TRACE (NEGATIVE); NITRITE, URINE NEGATIVE (NEGATIVE); PROTEIN,URINE 2+ mg/dl (NEGATIVE); UGLUCOSE NEGATIVE (NEGATIVE); UROBILINOGEN,URINE 0.2 EU/dL (0.2)
[2018-04-25 19:54] LABS: BACTERIA,URINE Rare /HPF (None Seen); SQUAMOUS EPITHELIAL CELL,UR Few /HPF (None Seen); WBC,URINE 0-2 /HPF (0-3)
[2018-04-25 19:55] LABS: CALCIUM OXALATE CRYSTALS,UR Few /HPF (None Seen); URINE AMORPHOUS URATE Moderate /HPF (None Seen)
[2018-04-25 20:49] VITALS: BP 125/58
[2018-04-26] MEDS: INSULIN REGULAR, HUMAN 100 UNIT/ML 3 ML VIAL SQ PRN ×4 (00:24→21:08)
[2018-04-26] MEDS: BLOOD SUGAR DIAGNOSTIC 1 EACH STRIP IN SCH ×5 (00:27→21:06)
--- NOTE | 2018-04-26 00:33 | NUR ---
MS/RN PATIENT IS SLEEPING AT THIS TIME, AROUSABLE, APPEAR COMFORTABLE, NO SIGNS FOF DISTRESS NOTED, WILL CONTINUE TO MONITOR.
[2018-04-26] MEDS: ALBUTEROL FS 2.5 MG/0.5 ML VIAL.NEB NEB SCH ×6 (03:47→20:10)
[2018-04-26] MEDS: IPRATROPIUM NEB FS 0.5 MG/2.5 ML AMPUL.NEB NEB SCH ×6 (03:47→20:10)
[2018-04-26] MEDS: IV NS 0.9% 1,000 ML IV PRN ×2 (06:11→18:06)
--- NOTE | 2018-04-26 06:18 | NUR ---
MS/RN PATIENT IS SLEEPING AT THIS TIME, AROUSABLE, APPEAR COMFORTABLE, NO SIGNS OF DISTRESS NOTED, NO GASTRIC RESIDUAL NOTED, ALL NEEDS ATTENDED AT THIS TIME. WILL CONTINUE TO MONITOR.
[2018-04-26 06:37] LABS: BASOPHILS % (AUTO) 0.1 % (0.0-2.0); EOSINOPHILS % (AUTO) 1.7 % (0.0-6.0); HEMATOCRIT 23 % (33-45); HEMOGLOBIN 7.2 g/dL (11.5-14.8); LYMPHOCYTES # (AUTO) 1.4 /CMM (0.8-4.8); LYMPHOCYTES % (AUTO) 11.7 % (20.0-44.0); MEAN CORPUSCULAR HGB CONC 31 g/dl (31.0-36.0); MEAN CORPUSCULAR VOLUME 76 fL (82-100); MONOCYTES % (AUTO) 7.9 % (2.0-12.0); NEUTROPHILS # (AUTO) 9.7 /CMM (1.8-8.9); NEUTROPHILS % (AUTO) 78.6 % (43.0-81.0); PLATELET COUNT (AUTO) 537 /CMM (150-450); RDW COEFFICIENT OF VARIATION 19.9 (11.5-15.0); RED BLOOD CELL COUNT(AUTO) 3.04 MIL/uL (4.0-5.2); WHITE BLOOD COUNT (AUTO) 12.3 K/uL (4.3-11.0)
[2018-04-26 06:56] LABS: CALCIUM, SERUM 8.6 mg/dL (8.5-10.1); CARBON DIOXIDE 25 mmol/L (21-32); CHLORIDE 109 mmol/L (98-107); CREATININE 0.5 mg/dL (0.6-1.3); GLUCOSE 155 mg/dL (74-106); MAGNESIUM 2.1 mg/dL (1.8-2.4); PHOSPHORUS 2.8 mg/dL (2.5-4.9); POTASSIUM 3.6 mmol/L (3.5-5.1); SODIUM SERUM 142 mmol/L (136-145); UREA NITROGEN, BLOOD 10 mg/dL (7-18)
[2018-04-26 07:49] VITALS: BP 93/49
--- NOTE | 2018-04-26 08:05 | NUR ---
MS RN RECEIVED ON BED, AWAKE,NONVERBAL PATIENT, NOT IN ANY FORM OF DISTRESS, RESPIRATIONS EVEN AND UNLABORED, LUNGS ARE DIMINISHED,ABDOMEN SOFT,NO S/S OF PAIN AT THIS TIME, GTUBE FEEDING NOT ON, WAITING FOR FEEDING TO BE DELIVERED,NO DEBBIE TO HAVE MULTIPLE WOUNDS, W/ DRESSING DRY AND INTACT, REPOSITIONED FOR COMFORT.
[2018-04-26] MEDS: ACETYLCYSTEINE 10% SOLN 400 MG/4 ML VIAL NEB SCH ×3 (08:49→17:03)
--- NOTE | 2018-04-26 08:50 | NUR ---
MS RN DUE MEDS GIVEN, RESUMED FEEDING,TOLERATED WELL. W/ 10CC RESIDUAL.
[2018-04-26] MEDS: LEVOTHYROXINE SODIUM 25 MCG TABLET GT SCH (09:04)
[2018-04-26] MEDS: PANTOPRAZOLE 40 MG VIAL IV SCH (09:04)
[2018-04-26] MEDS: MEROPENEM 1 G in IV NS 0.9% 100 ML IV SCH ×2 (09:04→21:21)
[2018-04-26] MEDS: FERROUS SULFATE (325 MG) 325 MG/TAB TABLET GT SCH ×3 (09:04→17:45)
[2018-04-26] MEDS: ENOXAPARIN SODIUM 40 MG/0.4 ML DISP.SYRIN SQ SCH (09:20)
--- NOTE | 2018-04-26 10:15 | NUR ---
MS RN WAS SEEN BY BRIAN, AWAITING FOR ORDERS.
--- NOTE | 2018-04-26 15:23 | NUR ---
ROBERTO contacted [facility] cardroom worker Myesha again since ROBERTO did not hear back from her since yesterday's voicemail message. ROBERTO requested for Myesha to call ROBERTO to discuss the case.
--- NOTE | 2018-04-26 15:36 | NUR ---
RT NOTE: PATIENT BUSY AT THIS TIME. NURSE(SHELBI) ASKED ME TO COME BACK FOR BREATHING TREATMENT. TREATMENT DIFFERED. WILL FOLLOW UP WITH PATIENT LATER.
--- NOTE | 2018-04-26 16:00 | NUR ---
ms rn daughter came tot dress wounds, done by herself, does note want rn to get involved w/ dressing.
[2018-04-26 16:55] VITALS: BP 107/51
[2018-04-26] MEDS: HYDROGEL DRESSING 90 GM TUBE TP SCH (17:00)
[2018-04-26] MEDS: SIMVASTATIN 20 MG TABLET GT SCH (17:45)
[2018-04-26] MEDS: EPOETIN ALFA (10,000 UNIT) 10,000 UNIT/ML VIAL IV SCH (17:46)
[2018-04-26 20:00] VITALS: BP 108/45
--- NOTE | 2018-04-26 20:00 | NUR ---
MS SHELLFISH CHECKER INITIAL NOTES PT SEEN IN BED AND DAUGHTER AT THE BEDSIDE. SHE'S ON IVF NS AT 75ML/HR AND G-TUBE FEEDING AT 35ML/HR. NO ASPIRATION NOTED. PT BREATHING EVEN AND NON-LABORED. SKIN WARM TO TOUCH ON [employer] MATTRES WITH SIDE RAILS UP. NOTED BOTH HEELS ON HEEL PROTECTOR. PER DAUGHTER SHE INSISTED NOT TO TOUCH WOUND AND THE DRESSING BECAUSE SHE'S THE ONE CHANGING IT AND PER AM NURSE AWARE AND CHARGE NURSE TRACY AWARE TOO. LIGHT ALWAYS ON .PATEL TO GRAVITY WITH CLEAR YELLOW OUTPUT NOTED. WILL CONTINUE TO MONITOR.
--- NOTE | 2018-04-26 21:30 | NUR ---
MS ROSALBA NOTES ROUTINE MEDS GIVEN AND BLOOD SUGAR CHECKED 148, 2 UNITS OF INSULIN GIVEN FREDDY SQ ORDERED.NO SIGNS FO HYPER GLYCEMIA NOTED. REPOSITION PT Q 2HRS FOR COMFORT. WILL CONTINUE MONITORING.
[2018-04-27] MEDS: IPRATROPIUM NEB FS 0.5 MG/2.5 ML AMPUL.NEB NEB SCH ×7 (00:13→23:17)
[2018-04-27] MEDS: ACETYLCYSTEINE 10% SOLN 400 MG/4 ML VIAL NEB SCH ×4 (00:13→23:17)
[2018-04-27] MEDS: ALBUTEROL FS 2.5 MG/0.5 ML VIAL.NEB NEB SCH ×7 (00:13→23:17)
--- NOTE | 2018-04-27 01:21 | NUR ---
SNUFF DRIER /NOTES PT SLEEPING AT THIS TIME, RESPIRATION EVEN AND NON-LABORED. KEPT HER WARM AND COMFORTABLE AT ALL TIMES.
[2018-04-27 06:17] LABS: BASOPHILS % (AUTO) 0.2 % (0.0-2.0); EOSINOPHILS % (AUTO) 1.9 % (0.0-6.0); HEMATOCRIT 23 % (33-45); HEMOGLOBIN 7.1 g/dL (11.5-14.8); LYMPHOCYTES # (AUTO) 1.5 /CMM (0.8-4.8); MEAN CORPUSCULAR HGB CONC 31 g/dl (31.0-36.0); MEAN CORPUSCULAR VOLUME 76 fL (82-100); MONOCYTES # (AUTO) 0.9 /CMM (0.1-1.30); MONOCYTES % (AUTO) 7.5 % (2.0-12.0); NEUTROPHILS # (AUTO) 9.5 /CMM (1.8-8.9); NEUTROPHILS % (AUTO) 78.4 % (43.0-81.0); PLATELET COUNT (AUTO) 537 /CMM (150-450); RDW COEFFICIENT OF VARIATION 19.8 (11.5-15.0); RED BLOOD CELL COUNT(AUTO) 3.03 MIL/uL (4.0-5.2); WHITE BLOOD COUNT (AUTO) 12.1 K/uL (4.3-11.0)
[2018-04-27] MEDS: BLOOD SUGAR DIAGNOSTIC 1 EACH STRIP IN SCH ×4 (06:30→22:06)
[2018-04-27] MEDS: INSULIN REGULAR, HUMAN 100 UNIT/ML 3 ML VIAL SQ PRN ×3 (06:31→21:56)
[2018-04-27 06:56] LABS: CALCIUM, SERUM 8.2 mg/dL (8.5-10.1); CARBON DIOXIDE 24 mmol/L (21-32); CHLORIDE 112 mmol/L (98-107); CREATININE 0.5 mg/dL (0.6-1.3); GLUCOSE 150 mg/dL (74-106); MAGNESIUM 1.8 mg/dL (1.8-2.4); PHOSPHORUS 2.4 mg/dL (2.5-4.9); POTASSIUM 3.4 mmol/L (3.5-5.1); SODIUM SERUM 144 mmol/L (136-145); UREA NITROGEN, BLOOD 10 mg/dL (7-18)
--- NOTE | 2018-04-27 07:04 | NUR ---
MS FENCE SUPERVISOR CLOSING NOTES PT BACK TO REST AFTER MORNING CARE DONE .PT STABLE FREDDY THE NIGHT, NO ACUTE DISTRESS NOTED. DUE MEDS GIVEN AND REPOSITION HER FOR COMFORT. G-TUBE TOLERATED WELL. NO ASPIRATION NOTED.IVF ALSO INFUSING WELL, NO REDNESS OR INFILTRATION NOTED.KEPT HER WARM AND COMFORTABLE AT ALL TIMES. REPOSITION HER FOR COMFORT. ENDORSE TO AM NURSE.
[2018-04-27 08:00] VITALS: BP 100/34
--- NOTE | 2018-04-27 08:00 | NUR ---
RN NOTES RECEIVED PATIENT IN THE BED, NON VERBAL, NO ACUTE RESPIRATORY DISTRESS, NO SOB AT THIS TIME. LUNGS SOUNDS ARE DIMINISHED, PATIENT COUGHING. V/S STABLE. PATIENT ON O2-2LNC. PATIENT TOTAL CARE, HAS A MULTIPLE WOUNDS, DRESSING INTACT. ALSO PATIENT ON G-TUBE FEEDING GLUCERNA AT 35 ML/HR. RESIDUAL AND PLACEMENT CHECKED. INFUSING NS AT 75 ML /HR INTACT RIGHT UPPER ARM. PATIENT ASPIRATION PRECAUTION, KEEP HOB ELEVATED. PATIENT INCONTINENT, PATEL CATHETER DRAINING LIGHT YELLOW OUTPUT. ASSIST TURN AND REPOSTION Q 2 HR. CALL LIGHT WITHIN TO REACH. CONTINUED MONITORING WITH HELP OF UG DESIGNER..
[2018-04-27] MEDS: ALBUTEROL FS 2.5 MG/3 ML VIAL.NEB NEB PRN ×3 (08:13→12:15)
[2018-04-27] MEDS: PANTOPRAZOLE 40 MG VIAL IV SCH (08:34)
[2018-04-27] MEDS: LEVOTHYROXINE SODIUM 25 MCG TABLET GT SCH (08:34)
[2018-04-27] MEDS: FERROUS SULFATE (325 MG) 325 MG/TAB TABLET GT SCH ×3 (08:34→18:34)
[2018-04-27] MEDS: MEROPENEM 1 G in IV NS 0.9% 100 ML IV SCH ×2 (08:34→22:05)
[2018-04-27] MEDS: ENOXAPARIN SODIUM 40 MG/0.4 ML DISP.SYRIN SQ SCH (08:36)
[2018-04-27] MEDS: HYDROGEL DRESSING 90 GM TUBE TP SCH (08:39)
[2018-04-27] MEDS: IV NS 0.9% 1,000 ML IV PRN (08:51)
[2018-04-27 10:42] LABS: ABG BASE EXCESS -1.1 mmol/L; ABG OXYGEN SATURATION 91.3 % (92.0-98.5); ABG PCO2 30.4 mmHg (35.0-45.0); ABG PH 7.476 (7.350-7.450); ABG PO2 62.5 mmHg (75.0-100.0); COHb 0.3 % (0.5-1.5); MetHb 0.7 % (0.0-1.5); O2Hb 90.4 % (94.0-97.0); SITE, ABG Right Radial; VENT MODE, BG N/C
--- NOTE | 2018-04-27 11:00 | NUR ---
RN NOTES PATIENT STABLE GETTING BREATHING TREATMENT BY RT AT THIS TIME. ABG DONE, RESULT IN THE COMPUTER. PAULINO MUSHROOM GROWING SUPERVISOR AWARE OF. PATIENT HAS NO RESPIRATORY DISTRESS. ASSIST TURN AND REPOSTION Q 2 HR. CALL LIGHT WITHIN TO REACH. CONTINUED MONITORING.
--- NOTE | 2018-04-27 11:06 | NUR ---
ROBERTO received a call back from pt's APS social worker clinical Roxie Thomas . ROBERTO explained to Roxie that pt's daughter continues to not follow the plan of care that is requested by the doctor. Roxie informed SW she will follow through with the pt's daughter again once pt. is discharged home. Roxie informed SW that there is nothing much they can do but continue to speak to the daughter. Roxie will call ROBERTO on April 30 after 1pm to inquire if pt. has been discharged home.
[2018-04-27] MEDS ORDERED: POTASSIUM CHLORIDE 20 MEQ POWDER PACKET GT SCH (11:30)
[2018-04-27] MEDS ORDERED: NEUTRA PHOS 1 POWD.PACKET GT ONE (14:00)
--- NOTE | 2018-04-27 14:27 | NUR ---
RN NOTES BS-143 MG/DL, COVERAGE GIVEN, ALSO ADMINISTERED SCHEDULED MEDICATION VIA G-TUBE. ASSIST PATIENT TURN AND REPOSTION Q 2 HR USING PILLOWS. HEAD OF THE BED KEEP ELEVATED FOR ASPIRATION PRECAUTION. CALL LIGHT WITHIN TO REACH. PATIENT HAS A MULTIPLE WOUNDS, BUT UNABLE TO CHANGE DRESSING BECAUSE WAITING PATIENT'S DAUGHTER. SHE WILL CHANGE DRESSING. CHARGE NURSE, AND PAULINO SHELL GRADER AWARE OF. F/C DRAIN LIGHT YELLOW OUTPUT, G-TUBE INTACT. CONTINUED MONITORING. PATIENT HAS A HEEL PROTRACTOR.
--- NOTE | 2018-04-27 16:30 | NUR ---
rn notes dressing changed by daughter. Per patient daughter she is not going to let nobody to touch her mom's wound beside of her own wound md. daughter was using own medication which she brought from home, assist daughter to wilson dressing. PARTS PROFESSIONAL Robert aware of it. scheduled medication administered, assist turn and reposition q2 hr. daughter next to the bed. continued monitoring.
[2018-04-27] MEDS: SIMVASTATIN 20 MG TABLET GT SCH (18:33)
[2018-04-27] MEDS: ACETAMINOPHEN 325 MG TABLET PO PRN (18:34)
--- NOTE | 2018-04-27 18:34 | NUR ---
rn notes bs-114 mg/dl, no coverage give, administered scheduled medication, and tylenol 650 mg po prn for pain after dressing. v/s taken bp 146/56, p-100. f/c drain yellow output, needs attended and anticipated, continued monitoring.
[2018-04-27] MEDS: GLUCERNA SHAKE 237 ML CAN GT PRN (18:36)
[2018-04-27 18:43] VITALS: BP 146/56
--- NOTE | 2018-04-27 19:00 | NUR ---
RN NOTES PATIENT STABLE AFTER PAIN MEDICATION, ALSO GETTING BREATHING TREATMENT BY RT, HOB ELEVATED FOR ASPIRATION PRECAUTION. INFUSING GLUCERNA VIA G-TUBE INTACT. CALL LIGHT WITHIN TO REACH. ENDORSED ONCOMING NURSE FOR PLAN OF CARE.
--- NOTE | 2018-04-27 19:50 | NUR ---
MS/RN NOTES RECEIVED PATIENT IN STABLE CONDITION. PATIENT RESPONDS WHEN NAME CALLED. O2 3L NC WITH NO SOB AND/OR COUGHING NOTED. R UPPER ARM IV #20G FLUSHED, PATENT, SITE CDI. GT FEEDING GLUCERNA @ 35 ML/HR IN PROGRESS, TOLERATING WELL, SITE SLIGHT REDNESS, ES, NO DRAINAGE NOTED. HOB @ 45 DEGREES. GERALDINE FOOT DRSNG & HEEL BOOTS CDI. BUTTOCKS & SACRAL DRSNG CDI. PATIENT'S DAUGHTER "TRAVIS" MADE AWARE OF PLAN OF CARE AND VERBALIZED UNDERSTANDING. BED AT LOWEST POSITION AND LOCKED, SIDE RAILS X 4 UP, SIDE TABLE & CALL SANCHEZ WITHIN REACH. BED ALARM ON FOR FALL PRECAUTION. WILL CONTINUE TO MONITOR.
[2018-04-27 20:00] VITALS: BP 128/52
--- NOTE | 2018-04-28 02:00 | NUR ---
MS/RN NOTES SLEEPING WELL. NAD NOTED. O2 3L NC INTACT. GT FEEDING IN PROGRESS. TURNED AND REPOSITIONED AT THIS TIME. KEPT SKIN CDI. WILL CONTINUE TO MONITOR.
[2018-04-28] MEDS: ALBUTEROL FS 2.5 MG/0.5 ML VIAL.NEB NEB SCH ×5 (02:59→20:32)
[2018-04-28] MEDS: IPRATROPIUM NEB FS 0.5 MG/2.5 ML AMPUL.NEB NEB SCH ×5 (02:59→20:32)
[2018-04-28] MEDS: INSULIN REGULAR, HUMAN 100 UNIT/ML 3 ML VIAL SQ PRN ×4 (06:17→23:05)
[2018-04-28 06:36] LABS: HEMATOCRIT 25 % (33-45); HEMOGLOBIN 7.6 g/dL (11.5-14.8); MEAN CORPUSCULAR HGB CONC 30 g/dl (31.0-36.0); MEAN CORPUSCULAR VOLUME 75 fL (82-100); PLATELET COUNT (AUTO) 572 /CMM (150-450); RDW COEFFICIENT OF VARIATION 19.7 (11.5-15.0); RED BLOOD CELL COUNT(AUTO) 3.31 MIL/uL (4.0-5.2); WHITE BLOOD COUNT (AUTO) 13.2 K/uL (4.3-11.0)
[2018-04-28 06:37] LABS: BASOPHILS % (AUTO) 0.1 % (0.0-2.0); EOSINOPHILS % (AUTO) 1.2 % (0.0-6.0); LYMPHOCYTES % (AUTO) 15.1 % (20.0-44.0); MONOCYTES # (AUTO) 0.9 /CMM (0.1-1.30); NEUTROPHILS # (AUTO) 10.1 /CMM (1.8-8.9); NEUTROPHILS % (AUTO) 76.6 % (43.0-81.0)
[2018-04-28] MEDS: LEVOTHYROXINE SODIUM 25 MCG TABLET GT SCH (06:43)
[2018-04-28 06:49] LABS: CALCIUM, SERUM 8.5 mg/dL (8.5-10.1); CARBON DIOXIDE 25 mmol/L (21-32); CHLORIDE 113 mmol/L (98-107); CREATININE 0.6 mg/dL (0.6-1.3); GLUCOSE 174 mg/dL (74-106); PHOSPHORUS 2.4 mg/dL (2.5-4.9); POTASSIUM 3.6 mmol/L (3.5-5.1); SODIUM SERUM 146 mmol/L (136-145); UREA NITROGEN, BLOOD 9 mg/dL (7-18)
--- NOTE | 2018-04-28 06:53 | NUR ---
MS/RN NOTES NON-VERBAL, LEFT EYE OPEN. EVENLY BREATHING ON O2 3L VIA NC. GT FEEDING IN PROGRESS WITH CREAM COLORED, SMALL AMOUNT OF DRAINAGE NOTED ON SITE. CLEANED WITH NS AND LEFT DEMOLITION CRANE OPERATOR. PATEL CATH INTACT DRAINING 450 ML OF YELLOW URINE. BM X 2. RIGHT BUTTOCK DRSNG SOILED, CHANGED WITH TREATMENT. TOLERATED WELL. BS 154. ALL NEEDS MET. PATIENT STABLE. SAFETY MEASURES IN PLACE. WILL ENDORSE TO AM SHIFT FOR CONTINUITY OF CARE.
--- NOTE | 2018-04-28 07:00 | NUR ---
RN INITIAL NOTES: Received patient on bed, asleep, with head of bed elevated. Breathing even and unlabored. No SOB noted. Patient non-verbal, trach/vent dependent. Quiles in place, draining clear yellow urine. G-tube feeding in place, Glucerna, running at 35mL/hr. IV access on R upper arm g#20 intact and patent. Bed in low, locked position. Patient stable as endorsed by warehouse supervisor 3rd shift RN.
[2018-04-28] MEDS: ACETYLCYSTEINE 10% SOLN 400 MG/4 ML VIAL NEB SCH ×2 (07:24→15:28)
[2018-04-28] MEDS: BLOOD SUGAR DIAGNOSTIC 1 EACH STRIP IN SCH ×4 (07:47→22:58)
[2018-04-28 08:00] VITALS: BP 115/78
[2018-04-28 08:04] VITALS: BP 115/78
[2018-04-28] MEDS: FERROUS SULFATE (325 MG) 325 MG/TAB TABLET GT SCH ×3 (08:39→17:53)
[2018-04-28] MEDS: PANTOPRAZOLE 40 MG VIAL IV SCH (08:39)
[2018-04-28] MEDS: ENOXAPARIN SODIUM 40 MG/0.4 ML DISP.SYRIN SQ SCH (08:42)
[2018-04-28] MEDS: HYDROGEL DRESSING 90 GM TUBE TP SCH (08:44)
[2018-04-28] MEDS: MEROPENEM 1 G in IV NS 0.9% 100 ML IV SCH ×2 (08:52→22:36)
--- NOTE | 2018-04-28 10:30 | NUR ---
RN NOTES: Patient moved her bowels. Dressings on sacral wounds changed.
[2018-04-28] MEDS ORDERED: NEUTRA PHOS 1 POWD.PACKET NG ONE (12:00)
[2018-04-28] MEDS: EPOETIN ALFA (10,000 UNIT) 10,000 UNIT/ML VIAL IV SCH (15:12)
--- NOTE | 2018-04-28 15:45 | NUR ---
RN NOTES: Patient's daughter came. She does not agree with the wound care provided by the hospital. Daughter requested to provide wound care herself as she was doing before. aware. Ok for daughter to provide wound care.
[2018-04-28 16:07] VITALS: BP 155/54
[2018-04-28] MEDS: SIMVASTATIN 20 MG TABLET GT SCH (17:53)
[2018-04-28] MEDS ORDERED: GLUCERNA 1.2 1,000 ML BOTTLE NG PRN (19:00)
--- NOTE | 2018-04-28 19:27 | NUR ---
RN CLOSING NOTES: Patient non-verbal, daughter at bedside. G tube feeding in progress, running at 35mL/hr. Quiles cath in place, draining clear yellow urine. On 3L O2 via NC. All medications given as ordered. All needs attended to. Patient stable as of this time. Endorsed to hourly shift manager RN for continuity of care.
--- NOTE | 2018-04-28 19:35 | NUR ---
MS RN OPENING NOTES RECEIVED PT IN BED, NON VERBAL, APHASIC. O2 3L NC WITH NO SOB AND/OR COUGHING NOTED. R UPPER ARM IV #20G, INTACT PATENT, SL. GT FEEDING GLUCERNA @ 35 ML/HR IN PROGRESS, TOLERATING WELL, SITE SLIGHT REDNESS, ES, NO DRAINAGE NOTED. HOB @ 45 DEGREES. GERALDINE FOOT, BUTTOCKS & SACRAL DRESSING INTACT/CLEAN. FOLY CATH IN PLACE, FLOWING WITH LIGHT YELLOW COLOR URINE.PT'S DAUGHTER "TRAVIS" MADE AWARE OF PLAN OF CARE AND VERBALIZED UNDERSTANDING. BED AT LOWEST POSITION AND LOCKED, SIDE RAILS X 4 UP, SIDE TABLE & CALL SANCHEZ WITHIN REACH. BED ALARM ON FOR FALL PRECAUTION. WILL CONTINUE TO MONITOR.
[2018-04-28] MEDS ORDERED: VANCOMYCIN 1 GM VIAL ONE (19:49)
[2018-04-28 20:00] VITALS: BP 105/43
[2018-04-28] MEDS ORDERED: VANCOMYCIN 1 GM in IV NS 0.9% 250 ML IV ONE (20:00)
[2018-04-28 20:40] VITALS: BP 105/43
[2018-04-28 22:10] VITALS: BP 107/57
[2018-04-28] MEDS: ACETAMINOPHEN 325 MG TABLET PO PRN (23:21)
--- NOTE | 2018-04-28 23:21 | NUR ---
PRN TYLENOL GIVEN WHILE REPOSITIONING PT IN BED, NOTED WITH FACIAL GRIMACING DUE TO POSSIBLE PAIN, DTR ALSO REQUESTED TO GIVE TYLENOL. PRN TYLENOL GIVEN ORDERED. WILL REASSESS FOR EFFECTIVENESS.
--- NOTE | 2018-04-28 23:56 | NUR ---
MS RN NOTE PT HAS ORDER TO COLLECT WOUND CULTURE, DTR REFUSED TO COLLECT CULTURE @ NIGHT & WANTED THE NURSE TO WAIT UNTIL NEXT DRESSING CHANGE WILL BE DONE, STATING THAT HER MOTHER IS ON ANTIBIOTICS ALREADY & DOESN'T WANT HER MOTHER TO BE UNCOMFORTABLE WITH REPETITIVE DRESSING CHANGES SINCE WOUND DRESSING WAS DONE COUPLE HOURS AGO. WILL ENDORSE TO AM RN TO COLLECT THE WOUND SPECIMEN CULTURE WHEN NEXT DRESSING IS DONE ( PER DR REQUEST ).
[2018-04-29] VITALS (7 sets, daily range): BP systolic 115–139; BP diastolic 51–59
[2018-04-29] MEDS: ACETYLCYSTEINE 10% SOLN 400 MG/4 ML VIAL NEB SCH ×4 (00:04→23:01)
[2018-04-29] MEDS: IPRATROPIUM NEB FS 0.5 MG/2.5 ML AMPUL.NEB NEB SCH ×7 (00:04→23:01)
[2018-04-29] MEDS: ALBUTEROL FS 2.5 MG/0.5 ML VIAL.NEB NEB SCH ×6 (00:04→23:01)
--- NOTE | 2018-04-29 01:00 | NUR ---
MS RN NOTE PT NOTED TO BE RELAXED, SLEEPING INTERMITTENTLY. NO FACIAL GRIMACING OF PAIN NOTED @ THIS TIME. MADE COMFORTABLE IN BED.
--- NOTE | 2018-04-29 06:40 | NUR ---
MS RN CLOSING NOTES PT SLEPT INTERMITTENTLY @ NIGHT, NON-VERBAL. EVENLY BREATHING ON O2 3L VIA NC. GT FEEDING IN PROGRESS WITH CREAM COLORED, SMALL AMOUNT OF DRAINAGE NOTED ON SITE. CLEANED WITH NS, PAT DRY & DRESSING PLACED. HOB ELEVATED. TURNED & REPOSITIONED PER PROTOCOL. KEPT CLEAN & DRY MUCH POSSIBLE. PATEL CATH INTACT DRAINING 400 ML OF YELLOW URINE. ALL NEEDS MET. PATIENT STABLE. BED IN LOW LOCKED POSITION. CALL LIGHT WITHIN REACH. SAFETY MEASURES IN PLACE. WILL ENDORSE TO AM SHIFT FOR CONTINUITY OF CARE.
[2018-04-29] MEDS: ALBUTEROL FS 2.5 MG/3 ML VIAL.NEB NEB PRN (06:56)
[2018-04-29] MEDS: BLOOD SUGAR DIAGNOSTIC 1 EACH STRIP IN SCH ×4 (07:01→22:02)
[2018-04-29] MEDS: INSULIN REGULAR, HUMAN 100 UNIT/ML 3 ML VIAL SQ PRN ×2 (07:03→12:15)
--- NOTE | 2018-04-29 07:06 | NUR ---
MS RN NOTES PATIENT IN BED AWAKE, BLINKS EYE, NON VERBAL. NO ACUTE DISTRESS NOTED, BREATHING UNLABORED. NO SOB NOTED. IV ACCESS PATENT AND INTACT. PATEL CATHETER INTACT, DRAINING WELL. GTUBE FEEDING RUNNING, HOB ELEVATED. SAFETY MEASURES IN PLACE. CALL LIGHT WITHIN REACH. WILL CONTINUE TO MONITOR ACCORDINGLY.
[2018-04-29] MEDS: PANTOPRAZOLE 40 MG VIAL IV SCH (08:18)
[2018-04-29] MEDS: LEVOTHYROXINE SODIUM 25 MCG TABLET GT SCH (08:18)
[2018-04-29] MEDS: FERROUS SULFATE (325 MG) 325 MG/TAB TABLET GT SCH ×3 (08:18→17:12)
[2018-04-29] MEDS: ENOXAPARIN SODIUM 40 MG/0.4 ML DISP.SYRIN SQ SCH (08:19)
[2018-04-29] MEDS: HYDROGEL DRESSING 90 GM TUBE TP SCH (08:26)
[2018-04-29] MEDS ORDERED: FEE PK DOSING 1 MIN EA MC ONE (08:38)
[2018-04-29] MEDS: MEROPENEM 1 G in IV NS 0.9% 100 ML IV SCH ×2 (08:58→21:16)
[2018-04-29] MEDS: VANCOMYCIN 500 MG in IV D5W 100 ML IV SCH ×2 (10:10→22:02)
[2018-04-29 10:28] LABS: BASOPHILS % (AUTO) 0.1 % (0.0-2.0); EOSINOPHILS % (AUTO) 1.9 % (0.0-6.0); HEMATOCRIT 23 % (33-45); LYMPHOCYTES # (AUTO) 1.6 /CMM (0.8-4.8); LYMPHOCYTES % (AUTO) 13.1 % (20.0-44.0); MEAN CORPUSCULAR HGB CONC 31 g/dl (31.0-36.0); MEAN CORPUSCULAR VOLUME 75 fL (82-100); MONOCYTES # (AUTO) 0.5 /CMM (0.1-1.30); MONOCYTES % (AUTO) 4.5 % (2.0-12.0); NEUTROPHILS # (AUTO) 9.7 /CMM (1.8-8.9); NEUTROPHILS % (AUTO) 80.4 % (43.0-81.0); PLATELET COUNT (AUTO) 544 /CMM (150-450); RDW COEFFICIENT OF VARIATION 19.1 (11.5-15.0); RED BLOOD CELL COUNT(AUTO) 3.02 MIL/uL (4.0-5.2)
[2018-04-29 11:01] LABS: CALCIUM, SERUM 8.5 mg/dL (8.5-10.1); CARBON DIOXIDE 26 mmol/L (21-32); CHLORIDE 114 mmol/L (98-107); CREATININE 0.7 mg/dL (0.6-1.3); GLUCOSE 133 mg/dL (74-106); POTASSIUM 3.2 mmol/L (3.5-5.1); SODIUM SERUM 149 mmol/L (136-145); UREA NITROGEN, BLOOD 10 mg/dL (7-18)
--- NOTE | 2018-04-29 11:35 | NUR ---
MS RN NOTES NOTIFIED BAR EXAMINER PAULINO BURK REGARDING LOW HGB AND HCT LEVEL WITH NEW ORDERS MADE, NOTED AND CARRIED OUT. DAUGHTER MADE AWARE AND AGREED.
[2018-04-29] MEDS: IV 1/2NS 1000 ML 1,000 ML IV PRN (12:13)
--- NOTE | 2018-04-29 15:06 | NUR ---
MS RN NOTES BLOOD TRANSFUSION STARTED, PATIENT WITH STABLE VITAL SIGNS. NO ACUTE DISTRESS NOTED. NO SOB NOTED. WILL CONTINUE TO MONITOR PATIENT.
--- NOTE | 2018-04-29 15:21 | NUR ---
MS RN NOTES PATIENT WITH ON GOING BLOOD TRANSFUSION WITH STABLE VITAL SIGNS. NO ACUTE DISTRESS NOTED. NO SOB NOTED. BREATHING UNLABORED. NO ASE NOTED. WILL CONTINUE TO MONITOR ACCORDINGLY.
[2018-04-29] MEDS: SIMVASTATIN 20 MG TABLET GT SCH (17:12)
--- NOTE | 2018-04-29 18:45 | NUR ---
MS RN NOTES PATIENT IN BED AWAKE, NON-VERBAL. DAUGHTER AT BEDSIDE. BLOOD TRANSFUSION DONE. NO ACUTE DISTRESS NOTED, NO SOB NOTED, BREATHING UNLABORED. NO ASE OF BT NOTED. PATIENT IN STABLE CONDITION. IV ACCESS PATENT AND INTACT, GTUBE FEEDING ONGOING. PATEL CATHETER INTACT, DRAINING WELL. DUE MEDICATIONS GIVEN, NO ASE NOTED. HOB ELEVATED. SAFETY MEASURES IN PLACE. CALL LIGHT WITHIN REACH. WILL CONTINUE TO MONITOR ACCORDINGLY. WILL ENDORSE TO NIGHT NURSE FOR CONTINUITY OF CARE.
--- NOTE | 2018-04-29 19:25 | NUR ---
MS RN OPENING NOTES RECEIVED PT IN BED, NON VERBAL, APHASIC. O2 3L NC WITH NO SOB OR COUGHING NOTED. LFA IV ACCESS, INTACT PATENT, RUNNING WITH IVF ORDERED. GT FEEDING GLUCERNA @ 50 ML/HR IN PROGRESS, TOLERATING WELL, NO DRAINAGE NOTED. HOB @ 45 DEGREES. GERALDINE FOOT, BUTTOCKS & SACRAL DRESSING INTACT/CLEAN. FOLY CATH IN PLACE, FLOWING WITH LIGHT YELLOW COLOR URINE. PT'S DAUGHTER "TRAVIS" @ BED SIDE & MADE AWARE OF PLAN OF CARE AND VERBALIZED UNDERSTANDING. BED AT LOWEST POSITION AND LOCKED, SIDE RAILS X 4 UP, SIDE TABLE & CALL SANCHEZ WITHIN REACH. BED ALARM ON FOR FALL PRECAUTION. WILL CONTINUE TO MONITOR.
[2018-04-29] MEDS: ACETAMINOPHEN 325 MG TABLET PO PRN (21:16)
--- NOTE | 2018-04-29 21:16 | NUR ---
PRN TYLENOL GIVEN PRN TYLENOL WAS ADMINISTERED BEFORE CHANGING THE WOUND DRESSINGS VIA GT. WILL MONITOR CLOSELY.
--- NOTE | 2018-04-29 22:00 | NUR ---
WOUND DRESSING CHANGED DTR REMAINED @ BED SIDE EARLIER & INFORMED THE RN THAT SHE WOULD DO THE WOUND DRESSING FOR HER MOM, ALSO WANTS TO USE WOUND CREAMS/OINTMENTS THAT SHE BROUGHT FROM HOME, NOT THE ONE PRESCRIBED BY DOCTORS @ THE HOSPITAL. RN EXPLAINED TO THE DTR THAT SHE COULD DO THE WOUND DRESSING BUT DTR REFUSED & INSISTED TO DO ALL DRESSINGS BY HERSELF, ONLY WANTED PROCESSING INSPECTOR TO HOLD HER MOTHER WHILE SHE IS DOING THE DRESSINGS. RN STILL REMAINED @ BED SIDE TO ASSIST BUT DTR DIDN'T LET THE RN CHANGE THE DRESSINGS. CN MADE AWARE.
[2018-04-29] MEDS: GLUCERNA 1.2 1,000 ML BOTTLE NG PRN (22:19)
[2018-04-30] MEDS: ALBUTEROL FS 2.5 MG/0.5 ML VIAL.NEB NEB SCH ×6 (03:17→23:53)
[2018-04-30] MEDS: IPRATROPIUM NEB FS 0.5 MG/2.5 ML AMPUL.NEB NEB SCH ×6 (03:17→23:53)
--- NOTE | 2018-04-30 06:37 | NUR ---
MS RN CLOSING NOTES PT SLEPT INTERMITTENTLY @ NIGHT, NON-VERBAL, BED BOUND, CONTRACTED. EVENLY BREATHING ON O2 3L VIA NC. GT FEEDING IN PROGRESS ORDERED. HOB ELEVATED. IV ACCESS TO LFA, INTACT PATENT, RUNNING WITH IVF ORDERED BY MD. TURNED & REPOSITIONED PER PROTOCOL. KEPT CLEAN & DRY MUCH POSSIBLE. PATEL CATH INTACT DRAINING 400 ML OF YELLOW URINE. ALL NEEDS MET. PATIENT STABLE. BED IN LOW LOCKED POSITION. CALL LIGHT WITHIN REACH. SAFETY MEASURES IN PLACE. WILL ENDORSE TO AM SHIFT FOR CONTINUITY OF CARE.
[2018-04-30] MEDS: BLOOD SUGAR DIAGNOSTIC 1 EACH STRIP IN SCH ×4 (06:57→21:27)
[2018-04-30] MEDS: INSULIN REGULAR, HUMAN 100 UNIT/ML 3 ML VIAL SQ PRN ×2 (06:58→17:20)
[2018-04-30] MEDS: ACETYLCYSTEINE 10% SOLN 400 MG/4 ML VIAL NEB SCH ×3 (07:32→23:53)
--- NOTE | 2018-04-30 07:40 | NUR ---
RN NOTES RECEIVED PT IN BED, NON VERBAL, APHASIC. O2 3L NC WITH NO SOB OR COUGHING NOTED. LFA IV ACCESS, INTACT PATENT, RUNNING WITH IVF ORDERED. GT FEEDING GLUCERNA @ 45 ML/HR IN PROGRESS, TOLERATING WELL, NO RESIDUAL NOTED AT THIS TIME. HOB @ 45 DEGREES. GERALDINE FOOT, BUTTOCKS & SACRAL DRESSING INTACT/CLEAN. PATEL CATH IN PLACE, DRAINING WITH YELLOW URINE, KEPT SKIN CLEAN AND DRY, KEPT PATIENT COMFORTABLE AT THIS TIME. BED AT LOWEST POSITION AND LOCKED, SIDE RAILS X 4 UP, SIDE TABLE & CALL SANCHEZ WITHIN REACH. BED ALARM ON FOR FALL PRECAUTION. WILL CONTINUE TO MONITOR.
[2018-04-30 08:02] VITALS: BP 125/59
[2018-04-30] MEDS: FERROUS SULFATE (325 MG) 325 MG/TAB TABLET GT SCH ×3 (08:34→16:06)
[2018-04-30] MEDS: PANTOPRAZOLE 40 MG VIAL IV SCH (08:35)
[2018-04-30] MEDS: MEROPENEM 1 G in IV NS 0.9% 100 ML IV SCH ×2 (08:35→21:25)
[2018-04-30] MEDS: LEVOTHYROXINE SODIUM 25 MCG TABLET GT SCH (08:35)
[2018-04-30] MEDS: HYDROGEL DRESSING 90 GM TUBE TP SCH (08:47)
[2018-04-30] MEDS: ENOXAPARIN SODIUM 40 MG/0.4 ML DISP.SYRIN SQ SCH (08:47)
[2018-04-30 08:57] LABS: BASOPHILS # (AUTO) 0.1 /CMM (0.0-0.2); BASOPHILS % (AUTO) 0.4 % (0.0-2.0); HEMATOCRIT 28 % (33-45); HEMOGLOBIN 8.6 g/dL (11.5-14.8); LYMPHOCYTES # (AUTO) 1.9 /CMM (0.8-4.8); MEAN CORPUSCULAR HGB CONC 31 g/dl (31.0-36.0); MEAN CORPUSCULAR VOLUME 77 fL (82-100); MONOCYTES # (AUTO) 0.7 /CMM (0.1-1.30); NEUTROPHILS # (AUTO) 10.6 /CMM (1.8-8.9); NEUTROPHILS % (AUTO) 79.6 % (43.0-81.0); PLATELET COUNT (AUTO) 536 /CMM (150-450); RDW COEFFICIENT OF VARIATION 19.1 (11.5-15.0); RED BLOOD CELL COUNT(AUTO) 3.61 MIL/uL (4.0-5.2); WHITE BLOOD COUNT (AUTO) 13.4 K/uL (4.3-11.0)
[2018-04-30 09:25] LABS: CALCIUM, SERUM 8.4 mg/dL (8.5-10.1); CARBON DIOXIDE 27 mmol/L (21-32); CHLORIDE 114 mmol/L (98-107); POTASSIUM 3.4 mmol/L (3.5-5.1); SODIUM SERUM 148 mmol/L (136-145); UREA NITROGEN, BLOOD 11 mg/dL (7-18)
[2018-04-30 09:32] LABS: CREATININE 0.7 mg/dL (0.6-1.3); GLUCOSE 150 mg/dL (74-106)
--- NOTE | 2018-04-30 09:40 | NUR ---
RN NOTES HR MANUALLY RECHECKED WITH A RESULT OF 100. TURNED AND REPOSITIONED, BILATERAL HEELS OFFLOADED, KEPT PATIENT COMFORTABLE.
[2018-04-30] MEDS: VANCOMYCIN 500 MG in IV D5W 100 ML IV SCH ×2 (10:23→23:01)
[2018-04-30] MEDS: IV 1/2NS 1000 ML 1,000 ML IV PRN (10:28)
--- NOTE | 2018-04-30 10:53 | NUR ---
RN NOTES DAUGHTER ADELSO CALLED AND GAVE INSTRUCTIONS NOT TO DO THE WOUND TREATMENT AND SHE WILL DO IT IN THE AFTERNOON, EXPLAINED RISKS, I INFORMED DAUGHTER IF PATIENT SOILED THE DRESSING, I WILL REINFORCE TO PREVENT FURTHER SKIN BREAKDOWN. PATIENT'S DAUGHTER VERBALIZED UNDERSTANDING, AND STILL WANTS TO DO IT HER WAY.
[2018-04-30] MEDS ORDERED: POTASSIUM CHLORIDE 20 MEQ POWDER PACKET GT SCH (12:00)
[2018-04-30] MEDS ORDERED: POTASSIUM CHLORIDE 20 MEQ TAB.PRT.SR PO ONE (12:00)
[2018-04-30] MEDS: EPOETIN ALFA (10,000 UNIT) 10,000 UNIT/ML VIAL IV SCH (14:53)
[2018-04-30 15:58] VITALS: BP 128/66
[2018-04-30] MEDS: ACETAMINOPHEN 325 MG TABLET PO PRN (16:06)
--- NOTE | 2018-04-30 16:26 | NUR ---
RN NOTES PATIENT'S DAUGHTER CAME AND DID WOUND TREATMENT SHE PREFERRED EXCEPT FOR RIGHT FOOT, RN OFFERED TO HELP WITH TREATMENT, BUT THE DAUGHTER INSISTED ON DOING THE TREATMENT WITH HER OWN MEDICATIONS FROM HOME. DAUGHTER STATED SHE DOESNT WANT TO CHANGE THE DRESSING ON THE RIGHT FOOT, BECAUSE THE DRESSING IS STILL INTACT. PRN CHARGE NURSE MADE AWARE. Addendum: 04/30/18 at 1707 by ANA ONEAL RN ADDENDUM: PATIENT'S DAUGHTER REFUSED, TO HAVE RIGHT FOOT WOUND CULTURE, AND THE DAUGHTER STATED "I WILL NOT CHANGE THE DRESSING ON HER SACRAL, ITS STILL GOOD" EXPLAINED RISKS, DAUGHTER IS INSISTING SHE KNOWS WHAT SHE'S DOING AND SHE DOESN'T TRUST THE DOCTORS IN THIS HOSPITAL.
[2018-04-30] MEDS: SIMVASTATIN 20 MG TABLET GT SCH (17:17)
--- NOTE | 2018-04-30 18:36 | NUR ---
RN NOTES PATIENT NON-VERBAL, NO S/SX OF DISTRESS NOTED, BREATHING EVEN AND UNLABORED, NO SOB. DAUGHTER AT BEDSIDE, ALL DUE MEDS GIVEN ORDERED, PATIENT TURNED AND REPOSITIONED EVERY 2 HOURS, SKIN CARE RENDERED, NEEDS ATTENDED AND MET, CALL LIGHT WITHIN REACH, HORACE HAND FLESHER FROM [facility], IS REQUESTING TO ORDER A LONGER G-TUBE FROM [employer], FR 20, BUT A LONGER SIZE, AND MORE FLEXIBLE AND SOFT TO THE SKIN. CALLED [employer] AND WILL SEE IF WE HAVE AVALABLE. WILL ENDORSE TO SUPPORT TEAM ASSOC FOR LAURA.
--- NOTE | 2018-04-30 19:35 | NUR ---
RN MS OPENING NOTES RECEIVED PATIENT IN BED AWAKE ,NON VERBAL , RESPIRATIONS EVEN AND UNLABORED WITH EQUAL RISE AND FALL IN CHEST, NO DISTRESS PRESENT, ON O2 VIA NC AT 3LITERS, 02 SAT AT 98%-100%, PATEL CATHETER INTACT AND DRAINING WELL, NOTED WOUND DRESSINGS TO LEFT AND RIGHT FOOT INTACT AND DRY, WITH HEEL PROTECTORS AND OFFLOADED WITH PILLOWS, SACRAL DRESSING INTACT AND DRY WELL, PER DAUGHTER AT BEDSIDE BB DOES NOT WANT DRESSING TO BE CHANGED UNLESS SOILED. REPOSITIONED FOR COMFORT AND DAUGHTER REQUESTED, IV SITE TO LEFT FA. INTACT, IVF FLUID RUNNING ORDERED, NO REDNESS , NO INFILTRATION PRESENT AT THIS TIME, NO FACIAL GRIMACING PRESENT. HEAD OF BED ELEVATED FOR ASPIRATION AND GTUBE PRECAUTIONS, GTUBE PLACEMENT CHECK PATENT INTACT AND IN CORRECT PLACE, ORIENTED TO STAFF, CALL LIGHT KEPT WITHIN REACH , WILL CONTINUE TO MONITOR.
[2018-04-30 20:00] VITALS: BP 138/60
--- NOTE | 2018-04-30 21:41 | NUR ---
RN MS NOTES BLOOD SUGAR-97 PER SLIDING SCALE NO INSULIN NEEDED. NONE GIVEN
[2018-05-01] MEDS: GLUCERNA 1.2 1,000 ML BOTTLE NG PRN (00:18)
[2018-05-01] MEDS: IPRATROPIUM NEB FS 0.5 MG/2.5 ML AMPUL.NEB NEB SCH ×6 (04:20→19:16)
[2018-05-01] MEDS: ALBUTEROL FS 2.5 MG/0.5 ML VIAL.NEB NEB SCH ×6 (04:20→19:16)
[2018-05-01] MEDS: LEVOTHYROXINE SODIUM 25 MCG TABLET GT SCH (06:30)
[2018-05-01 06:36] LABS: EOSINOPHILS % (AUTO) 3.1 % (0.0-6.0); HEMATOCRIT 29 % (33-45); HEMOGLOBIN 8.8 g/dL (11.5-14.8); LYMPHOCYTES # (AUTO) 1.8 /CMM (0.8-4.8); LYMPHOCYTES % (AUTO) 13.9 % (20.0-44.0); MEAN CORPUSCULAR HGB CONC 31 g/dl (31.0-36.0); MEAN CORPUSCULAR VOLUME 78 fL (82-100); MONOCYTES # (AUTO) 0.7 /CMM (0.1-1.30); MONOCYTES % (AUTO) 5.3 % (2.0-12.0); NEUTROPHILS # (AUTO) 10.1 /CMM (1.8-8.9); NEUTROPHILS % (AUTO) 77.7 % (43.0-81.0); PLATELET COUNT (AUTO) 516 /CMM (150-450); RDW COEFFICIENT OF VARIATION 19.5 (11.5-15.0); RED BLOOD CELL COUNT(AUTO) 3.68 MIL/uL (4.0-5.2); WHITE BLOOD COUNT (AUTO) 13.1 K/uL (4.3-11.0)
[2018-05-01] MEDS: BLOOD SUGAR DIAGNOSTIC 1 EACH STRIP IN SCH ×4 (06:36→22:00)
[2018-05-01 06:55] LABS: CALCIUM, SERUM 8.3 mg/dL (8.5-10.1); CARBON DIOXIDE 29 mmol/L (21-32); CHLORIDE 113 mmol/L (98-107); CREATININE 0.6 mg/dL (0.6-1.3); GLUCOSE 171 mg/dL (74-106); POTASSIUM 3.9 mmol/L (3.5-5.1); SODIUM SERUM 146 mmol/L (136-145); UREA NITROGEN, BLOOD 11 mg/dL (7-18)
[2018-05-01] MEDS: INSULIN REGULAR, HUMAN 100 UNIT/ML 3 ML VIAL SQ PRN ×3 (07:02→18:17)
--- NOTE | 2018-05-01 07:19 | NUR ---
RN MS CLOSING NOTES PATIENT IN BED AWAKE ,NON VERBAL , RESPIRATIONS EVEN AND UNLABORED WITH EQUAL RISE AND FALL IN CHEST, NO DISTRESS PRESENT, ON O2 VIA NC AT 3LITERS, 02 SAT AT 98%-100%, PATEL CATHETER INTACT AND DRAINING WELL, PATEL CATHETER CHANGED TO DUE LEAKAGE WITH STERILE TECHNIQUE INTACT AND DRAINING PROPERLY, NOTED WOUND DRESSINGS TO LEFT AND RIGHT FOOT INTACT AND DRY, WITH HEEL PROTECTORS AND OFFLOADED WITH PILLOWS, SACRAL DRESSING REMAINS INTACT AND DRY WELL, PER DAUGHTER AT BEDSIDE BB DOES NOT WANT DRESSING TO BE CHANGED UNLESS SOILED. DRESSING NOT SOILED. IV SITE TO RIGHT 22. INTACT, IVF FLUID RUNNING ORDERED, NO REDNESS , NO INFILTRATION PRESENT AT THIS TIME, NO FACIAL GRIMACING PRESENT. HEAD OF BED ELEVATED FOR ASPIRATION AND GTUBE PRECAUTIONS, GTUBE PLACEMENT CHECK PATENT INTACT AND IN CORRECT PLACE, CALL LIGHT KEPT WITHIN REACH , WILL CONTINUE TO MONITOR AND ENDORSE TO NEXT SHIFT.
--- NOTE | 2018-05-01 07:25 | NUR ---
RN MS OPENING NOTES PATIENT IN BED AWAKE ,NON VERBAL , RESPIRATIONS EVEN AND UNLABORED WITH EQUAL RISE AND FALL IN CHEST, NO DISTRESS PRESENT, ON O2 VIA NC AT 3LITERS, 02 SAT AT 98%-100%, PATEL CATHETER INTACT AND DRAINING WELL, NOTED WOUND DRESSINGS TO LEFT AND RIGHT FOOT INTACT AND DRY, WITH HEEL PROTECTORS AND OFFLOADED WITH PILLOWS, SACRAL DRESSING REMAINS INTACT AND DRY WELL, PER DAUGHTER BB DOES NOT WANT DRESSING TO BE CHANGED UNLESS SOILED. DRESSING NOT SOILED. IV SITE TO RIGHT 22. INTACT, IVF FLUID RUNNING ORDERED, NO REDNESS , NO INFILTRATION PRESENT AT THIS TIME, NO FACIAL GRIMACING PRESENT. HEAD OF BED ELEVATED FOR ASPIRATION AND GTUBE PRECAUTIONS, GTUBE PLACEMENT CHECK PATENT INTACT AND IN CORRECT PLACE, CALL LIGHT KEPT WITHIN REACH , WILL CONTINUE TO MONITOR
[2018-05-01] MEDS: ACETYLCYSTEINE 10% SOLN 400 MG/4 ML VIAL NEB SCH ×3 (07:46→17:10)
[2018-05-01 08:00] VITALS: BP 125/65
[2018-05-01] MEDS: PANTOPRAZOLE 40 MG VIAL IV SCH (09:31)
[2018-05-01] MEDS: FERROUS SULFATE (325 MG) 325 MG/TAB TABLET GT SCH ×3 (09:31→17:54)
[2018-05-01] MEDS: MEROPENEM 1 G in IV NS 0.9% 100 ML IV SCH ×2 (09:32→21:45)
[2018-05-01] MEDS: ENOXAPARIN SODIUM 40 MG/0.4 ML DISP.SYRIN SQ SCH (09:41)
[2018-05-01] MEDS: HYDROGEL DRESSING 90 GM TUBE TP SCH (09:43)
--- NOTE | 2018-05-01 10:10 | NUR ---
RN NOTES PATIENT TURNED AND REPOSITIONED Q2H AND PRN FOR PRESSURE RELIEF AND COMFORT, PATIENT TURNED AND PILLOWS PLACED REQUESTED BY DAUGHTER ABLE TO ANSWER DAUGHTER'S QUESTION VIA PHONE WILL CONTINUE TO MONITOR, PER DAUGHTER NOT TO CHANGE DRESSINGS, "I WILL CHANGE THEM WHEN I GET THERE".
[2018-05-01] MEDS: IV 1/2NS 1000 ML 1,000 ML IV PRN (11:31)
[2018-05-01] MEDS: VANCOMYCIN 500 MG in IV D5W 100 ML IV SCH ×2 (11:35→23:27)
--- NOTE | 2018-05-01 12:00 | NUR ---
RN NOTES PATIENT ROUNDING COMPLETE, PT CLEAN AND DRY REPOSITIONED FOR COMFORT WILL CONTINUE TO MONITOR
--- NOTE | 2018-05-01 14:00 | NUR ---
RN NOTES PATIENT ROUNDING COMPLETE, PT CLEAN AND DRY REPOSITIONED FOR COMFORT WILL CONTINUE TO MONITOR
--- NOTE | 2018-05-01 15:30 | NUR ---
RN NOTES DAUGHTER AT BEDSIDE, PER DAUGHTER DOES NOT LIKE HOW MOTHER IS POSITIONED, CHARGE NURSE AWARE, ASKED FOR DIFFERENT NURSE WILL GIVE REPORT TO NEXT NURSE
--- NOTE | 2018-05-01 15:30 | NUR ---
DR. MCKNIGHT CALLED PER HIS REQUEST TO INFORM THAT PT'S DTR AT BEDSIDE, PER DR HE ALREADY LEFT HOSPITAL AND NOT ABLE TO MEET HER, HE IS WILLING TO SEE HER IN AM FROM 7 TO 12 ANY TIME. PT'S DAUGHTER INFORMED AND SHE STATED THAT SHE WILL COME IN AM TO MEET THE .
[2018-05-01 16:00] VITALS: BP 137/71
--- NOTE | 2018-05-01 16:00 | NUR ---
RN NOTES REPORT GIVEN TO NEXT NURSE, PATIENT AWAKE NON VERBAL RESPIRATIONS EVEN AND UNLABORED, KEPT CLEAN DRY AND COMFORTABLE, NEXT NURSE TO CONTINUE CARE
--- NOTE | 2018-05-01 16:01 | NUR ---
MS RN NOTES: RN CHANGE RN CHANGED PER DAUGHTER'S REQUEST. PT REPOSITIONED AND CLEANED. WOUND CARE PROVIDED BY PT'S DAUGHTER. WILL CONTINUE TO MONITOR
--- NOTE | 2018-05-01 16:26 | NUR ---
RT NOTE: RT DIFFERED AT THIS TIME. DAUGHTER IS CURRENTLY WORKING WITH PATIENT. NOTIFIED DAUGHTER THAT TREATMENT IS DUE. NURSE AWARE. WILL FOLLOW UP WITH PATIENT LATER.
[2018-05-01] MEDS: SIMVASTATIN 20 MG TABLET GT SCH (17:54)
[2018-05-01] MEDS: ACETAMINOPHEN 325 MG TABLET PO PRN (17:59)
--- NOTE | 2018-05-01 18:41 | NUR ---
MS RN CLOSING NOTES PT REMAINS STABLE. ALL NEEDS WERE MET DURING SHIFT AND ORDERS CARRIED OUT ACCORDINGLY. ALL DUE MEDS WERE GIVEN. WOUND AND SKIN CARE PROVIDED BY DAUGHTER PER HER REQUEST. PT TOLERATING GTUBE FEEDING WELL. NO RESIDUALS ASPIRATED AT THIS TIME. IV REMAINS PATENT AND INTACT. PT REPOSITIONED AND TURNED Q2HRS. SAFETY MEASURES REMAIN IN PLACE. WILL ENDORSE TO NIGHTSHIFT NURSE FOR LAURA
--- NOTE | 2018-05-01 19:10 | NUR ---
MS/RN OPENING NOTES PT RECEIVED WITH EYES CLOSED. OPENS EYES TO LIGHT TOUCH. ON 3L O2 VIA NC, BREATHING EVEN AND UNLABORED. NO S/S OF SOB OR PAIN, NO FACIAL GRIMACING NOTED. PATEL IN PLACE AND DRAINING TO GRAVITY. IV TO RIGHT WRIST PATENT AND INTACT RUNNING IVF ORDERED. BED IN LOW/LOCKED POSITION WITH CALL LIGHT IN REACH. SIDE RAILS UPX3. WILL CONTINUE TO MONITOR
[2018-05-01] MEDS: FLUCONAZOLE (100 MG) 100 MG TABLET PO SCH (19:17)
[2018-05-01 20:00] VITALS: BP 127/52
--- NOTE | 2018-05-01 20:45 | NUR ---
MS/RN NOTES PT TURNED AND REPOSITIONED. ALL NEW LINENS AND CHUCKS PROVIDED. BEFORE COMPLETION, DAUGHTER ARRIVED. ASSISTED DAUGHTER TO REARRANGE PILLOWS UNDER BILATERAL FEET TO HER PREFERENCE. PER DAUGHTER, SHE CHANGED DRESSINGS THIS AFTERNOON AND WILL CHANGE AGAIN TOMORROW MORNING. DOES NOT WANT DRESSINGS TO BE CHANGED TONIGHT. ALL DRESSINGS C/D/I. HEEL PROTECTORS IN PLACE. UPDATED DAUGHTER AND ANSWERED ALL QUESTIONS ABOUT PT'S CARE.
--- NOTE | 2018-05-01 22:30 | NUR ---
MS/RN NOTES PT TURNED AND REPOSITIONED. BILATERAL HEELS OFFLOADED WITH PILLOWS, HEEL PROTECTORS ON. HOB ELEVATED, ASPIRATION PRECAUTIONS IMPLEMENTED THROUGHOUT SHIFT.
--- NOTE | 2018-05-01 23:55 | NUR ---
MS/RN NOTES GLUCOMETER MACHINES NOT WORKING. NETWORK ERROR. LAB NOTIFIED AND CONTACTED IT DEPT TO RESOLVE THE ISSUE BUT ABLE TO FIX. LAB TO DRAW RANDOM GLUCOSE LEVELS
[2018-05-02] MEDS: ACETYLCYSTEINE 10% SOLN 400 MG/4 ML VIAL NEB SCH ×4 (00:05→23:09)
[2018-05-02] MEDS: ALBUTEROL FS 2.5 MG/0.5 ML VIAL.NEB NEB SCH ×7 (00:05→23:09)
[2018-05-02] MEDS: IPRATROPIUM NEB FS 0.5 MG/2.5 ML AMPUL.NEB NEB SCH ×7 (00:05→23:09)
[2018-05-02] MEDS: GLUCERNA 1.2 1,000 ML BOTTLE NG PRN (00:50)
[2018-05-02] MEDS: INSULIN REGULAR, HUMAN 100 UNIT/ML 3 ML VIAL SQ PRN ×4 (01:33→18:16)
--- NOTE | 2018-05-02 01:34 | NUR ---
MS/RN NOTES INSULIN ADMINISTERED LATE. GLUCOMETER MACHINES NOT WORKING. RANDOM GLUCOSE LEVEL= 137. ADMINISTERED 2 UNITS PER SLIDING SCALE. GT FEEDING RUNNING ORDERED.
--- NOTE | 2018-05-02 05:30 | NUR ---
MS/RN NOTES PT HAD BM. SACRAL AND BUTTOCKS DRESSINGS SATURATED. DRESSING CHANGE PROVIDED ORDERED. PT'S BILATERAL FOOT DRESSING ALSO SOILED. CALLED PT'S DAUGHTER TO ASK IF I MAY CHANGE THE DRESSING, PT'S DAUGHTER SAID NO, SHE WILL COME IN THE MORNING AND CHANGE THE DRESSINGS. PATEL ALSO NOTED WITH NO OUTPUT AND LEAKING. REINSERTED, CLEAR YELLOW OUTPUT DRAINING TO GRAVITY. WILL MONITOR
[2018-05-02 07:08] LABS: CALCIUM, SERUM 8.4 mg/dL (8.5-10.1); CARBON DIOXIDE 29 mmol/L (21-32); CHLORIDE 111 mmol/L (98-107); CREATININE 0.6 mg/dL (0.6-1.3); GLUCOSE 140 mg/dL (74-106); POTASSIUM 3.6 mmol/L (3.5-5.1); SODIUM SERUM 145 mmol/L (136-145); UREA NITROGEN, BLOOD 11 mg/dL (7-18)
[2018-05-02] MEDS: BLOOD SUGAR DIAGNOSTIC 1 EACH STRIP IN SCH ×4 (07:43→21:43)
--- NOTE | 2018-05-02 07:44 | NUR ---
MS/RN CLOSING NOTES PT NON VERBAL OPENS EYES. CURRENTLY RECEIVING BREATHING TX. IV TO RIGHT WRIST PATENT AND INTACT RUNNING IVF ORDERED. NO S/S OF INFILTRATION NOTED. PATEL IN PLACE AND DRAINING TO GRAVITY. GT FEEDING RUNNING ORDERED .NO RESIDUALS NOTED, PT TOLERATING WELL. 2 UNITS GIVEN AT APPROX 0130 POST RANDOM GLUCOSE DRAWN BY LAB. TURNED/REPOSITIONED PT Q2H AND HEELS OFFLOADED AT ALL TIMES WITH PILLOWS. HEEL PROTECTORS IN PLACE. ALL BONY PROMINENCES PROTECTED. WOUND CARE PROVIDED TO SACRUM/BUTTOCKS, DAUGHTER WILL COME AND CHANGE DRESSING TO BILATERAL FEET. NO SIGNIFICANT CHANGES OVERNIGHT. BED IN LOW/LOCKED POSITION WITH CALL LIGHT IN REACH. SIDE RAILS UP X3 WITH BED ALARM ON FOR SAFETY. ENDORSED TO DAY JEFF EDUARDO LAURA
[2018-05-02 08:00] VITALS: BP 140/50
--- NOTE | 2018-05-02 08:00 | NUR ---
M/S RN - Assessment Patient in bed, awake, alert to self, no s/s of pain, no evidence of resp distress noted. IVF 1/2 NS at 60 ml/hr infusing well on the right wrist with no signs of infiltration. Patient had multiple pressure sores, daughter refused wound treatment to be done by staff, Md aware. Patient turned and repositioned q2h and PRN if condition permits. KCI mattress in place for skin management. GTF Glucerna at 50 ml/hr tolerating it well with no residual noted. Aspiration and fall precautions maintained. Will continue with current medical management.
[2018-05-02] MEDS: LEVOTHYROXINE SODIUM 25 MCG TABLET GT SCH (08:06)
[2018-05-02] MEDS: FLUCONAZOLE (100 MG) 100 MG TABLET PO SCH (08:06)
[2018-05-02] MEDS: FERROUS SULFATE (325 MG) 325 MG/TAB TABLET GT SCH ×3 (08:06→16:10)
[2018-05-02] MEDS: PANTOPRAZOLE 40 MG VIAL IV SCH (08:06)
[2018-05-02] MEDS: ENOXAPARIN SODIUM 40 MG/0.4 ML DISP.SYRIN SQ SCH (08:07)
[2018-05-02] MEDS: HYDROGEL DRESSING 90 GM TUBE TP SCH (08:08)
[2018-05-02] MEDS: IV 1/2NS 1000 ML 1,000 ML IV PRN (08:10)
[2018-05-02] MEDS: MEROPENEM 1 G in IV NS 0.9% 100 ML IV SCH ×2 (08:10→21:11)
[2018-05-02] MEDS: VANCOMYCIN 500 MG in IV D5W 100 ML IV SCH ×2 (10:10→22:28)
--- NOTE | 2018-05-02 11:00 | NUR ---
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 Contact precautions initiated. Dr. Grant made aware and daughter BB was notified. Patient currently on Vancomycin IV.
[2018-05-02 16:00] VITALS: BP_SYST 119; BP_SYST 136; BP_DIAS 55; BP_DIAS 61
[2018-05-02] MEDS: LACTOBACILLUS RHAMNOSUS GG 1 EACH CAP.SPRINK GT SCH (16:10)
[2018-05-02] MEDS: SIMVASTATIN 20 MG TABLET GT SCH (17:16)
[2018-05-02] MEDS: ACETAMINOPHEN 325 MG TABLET PO PRN (17:33)
--- NOTE | 2018-05-02 18:40 | NUR ---
M/S RN - Notes No new events seen, remain afebrile, no apparent distress. Wound care done by daughter. Quiles catheter in place draining clear yellow urine. Saline lock on the right wrist is patent, intact, with no s/s of infiltration. Tube feeding tolerated well. All needs attended and met. Daughter updated on plan of care. Will endorse to night nurse accordingly.
--- NOTE | 2018-05-02 19:30 | NUR ---
RN NOTES RECEIVED PATIENT IN BED WITH EYES CLOSED. RESPONSIVE TO TOUCH; NON-VERBAL. NO ACUTE DISTRESS NOTED. NO SIGNS OF PAIN NOTED. IV SITE PATENT, INTACT; FLUSHED. GT PATENT, INTACT; IN PLACE VIA AUSCULTATION. GTF ONGOING; NO RESIDUAL TAKEN. HOB RAISED. WOUND DRESSINGS INTACT. PER DAUGHTER AT BEDSIDE, DO NOT TOUCH/CHANGE ANY WOUND DRESSINGS, GERALDINE FEET OFFLOADED. PATEL CATH PATENT, INTACT; DRAINING CLEAR YELLOW URINE. ON LOW BED WITH BILATERAL UPPER SIDE RAILS UP. CALL SANCHEZ WITHIN EASY REACH. CONTACT ISOLATION MAINTAINED FOR MRSA IN SACRUM AND FOOT WOUND. WILL CONTINUE TO MONITOR.
[2018-05-02 20:00] VITALS: BP 117/66
[2018-05-03] MEDS: GLUCERNA 1.2 1,000 ML BOTTLE NG PRN (01:08)
[2018-05-03] MEDS: ALBUTEROL FS 2.5 MG/0.5 ML VIAL.NEB NEB SCH ×6 (03:03→23:27)
[2018-05-03] MEDS: IPRATROPIUM NEB FS 0.5 MG/2.5 ML AMPUL.NEB NEB SCH ×6 (03:03→23:27)
--- NOTE | 2018-05-03 06:07 | NUR ---
RN NOTES PATIENT IN BED WITH EYES CLOSED. RESPIRATIONS EVEN. NO SIGNS OF PAIN NOTED. NO SYMPTOMS OF HYPER/HYPOGLYCEMIA. DUE MEDS GIVEN WITH NO ASE NOTED. NEEDS ATTENDED. KEPT CLEAN, DRY, AND COMFORTABLE. TURNED AND REPOSITIONED Q 2 HOURS. SAFETY PRECAUTIONS AND COMFORT MEASURES IN PLACE. WILL GIVE REPORT TO DAY SHIFT FOR CONTINUITY OF CARE.
[2018-05-03] MEDS: BLOOD SUGAR DIAGNOSTIC 1 EACH STRIP IN SCH ×4 (06:31→21:35)
[2018-05-03] MEDS: INSULIN REGULAR, HUMAN 100 UNIT/ML 3 ML VIAL SQ PRN ×2 (06:32→17:01)
[2018-05-03 06:47] LABS: CALCIUM, SERUM 8.3 mg/dL (8.5-10.1); CARBON DIOXIDE 31 mmol/L (21-32); CHLORIDE 111 mmol/L (98-107); CREATININE 0.6 mg/dL (0.6-1.3); GLUCOSE 165 mg/dL (74-106); POTASSIUM 3.5 mmol/L (3.5-5.1); SODIUM SERUM 145 mmol/L (136-145); UREA NITROGEN, BLOOD 11 mg/dL (7-18)
[2018-05-03] MEDS: ACETYLCYSTEINE 10% SOLN 400 MG/4 ML VIAL NEB SCH ×3 (07:46→23:45)
--- NOTE | 2018-05-03 07:50 | NUR ---
MS RN OPENING NOTES RECEIVED PT LAYING IN BED WITH HOB ELEVATED. AWAKE AND RESPONSIVE. RESPIRATIONS ARE EVEN AND UNLABORED. DENIES ANY PAIN,SOB, N/V. IV SITE INTACT, NO INFILTRATION NOTED. DRESSING KEPT CLEAN AND DRY. GTUBE IN PLACE, TUBING FREE OF KINKS. NO RESIDUAL NOTED. PT TOLERATING FEEDING, HOB KEPT ELEVATED TP PREVENT ASPIRATION. SAFETY MEASURES ARE IN PLACE. INSTRUCTED PT TO USE CALL LIGHT WHEN ASSISTANCE IS NEEDED, CALL LIGHT IS LEFT WITHIN REACH. WILL CONTINUE TO MONITOR THROUGHOUT SHIFT.
[2018-05-03 08:00] VITALS: BP 118/48
--- NOTE | 2018-05-03 08:01 | NUR ---
MS RN NOTES PT SEEN AND EXAMINED BY DR. MCKNIGHT W/ ORDERS FOR LASIX AND PICC LINE INSERTION. DTR MADE AWARE AND AGREED.
[2018-05-03] MEDS: GENTAMICIN 0.1% CREAM 15 GM TUBE TP SCH ×2 (09:00→16:53)
[2018-05-03] MEDS: FERROUS SULFATE UDC 300 MG/5 ML UDC GT SCH ×3 (09:15→16:53)
[2018-05-03] MEDS: PANTOPRAZOLE 40 MG VIAL IV SCH (09:15)
[2018-05-03] MEDS: LACTOBACILLUS RHAMNOSUS GG 1 EACH CAP.SPRINK GT SCH ×2 (09:15→16:53)
[2018-05-03] MEDS: FUROSEMIDE 40 MG/4 ML VIAL IV SCH ×2 (09:15→16:54)
[2018-05-03] MEDS: FLUCONAZOLE (100 MG) 100 MG TABLET PO SCH (09:15)
[2018-05-03] MEDS: MEROPENEM 1 G in IV NS 0.9% 100 ML IV SCH ×2 (09:15→20:38)
[2018-05-03] MEDS: HYDROGEL DRESSING 90 GM TUBE TP SCH (09:16)
[2018-05-03] MEDS: ENOXAPARIN SODIUM 40 MG/0.4 ML DISP.SYRIN SQ SCH (09:17)
[2018-05-03] MEDS: LEVOTHYROXINE SODIUM 25 MCG TABLET GT SCH (09:23)
[2018-05-03] MEDS: VANCOMYCIN 500 MG in IV D5W 100 ML IV SCH ×2 (10:12→22:07)
[2018-05-03 16:00] VITALS: BP 137/72
[2018-05-03] MEDS: SIMVASTATIN 20 MG TABLET GT SCH (17:01)
[2018-05-03 17:21] LABS: BASOPHILS % (AUTO) 0.2 % (0.0-2.0); EOSINOPHILS % (AUTO) 2.5 % (0.0-6.0); HEMATOCRIT 27 % (33-45); LYMPHOCYTES # (AUTO) 1.9 /CMM (0.8-4.8); LYMPHOCYTES % (AUTO) 15.6 % (20.0-44.0); MEAN CORPUSCULAR HGB CONC 30 g/dl (31.0-36.0); MEAN CORPUSCULAR VOLUME 81 fL (82-100); MONOCYTES # (AUTO) 0.8 /CMM (0.1-1.30); MONOCYTES % (AUTO) 6.4 % (2.0-12.0); NEUTROPHILS # (AUTO) 9.2 /CMM (1.8-8.9); NEUTROPHILS % (AUTO) 75.3 % (43.0-81.0); PLATELET COUNT (AUTO) 450 /CMM (150-450); RDW COEFFICIENT OF VARIATION 20.2 (11.5-15.0); WHITE BLOOD COUNT (AUTO) 12.3 K/uL (4.3-11.0)
[2018-05-03] MEDS: EPOETIN ALFA (10,000 UNIT) 10,000 UNIT/ML VIAL IV SCH (18:27)
--- NOTE | 2018-05-03 18:57 | NUR ---
MS RN CLOSING NOTES ALL DUE MEDS GIVEN, NEEDS MET AND RENDERED.DTR AT BEDSIDE. RESPIRATIONS ARE EVEN AND UNLABORED, NOT IN ANY ACUTE DISTRESS NOTED. DENIES ANY PAIN AT THIS TIME, NO C/O N/V. IV SITE INTACT, NO INFILTRATION NOTED. DRESSING KEPT CLEAN AND DRY. SAFETY MEASURES ARE IN PLACE. DTR DID WOUND CARE AND HAD HER "OWN DRESSING" AND DOES NOT WANT TO FOLLOW WOUND CARE ORDERS PER WOUND TEAM. WILL ENDORSE TO NEXT SHIFT FOR CONTINUITY OF CARE.
--- NOTE | 2018-05-03 19:30 | NUR ---
RN NOTES RECEIVED PATIENT IN BED WITH EYES CLOSED. RESPONSIVE TO TOUCH; NON-VERBAL. NO ACUTE DISTRESS NOTED. NO SIGNS OF PAIN NOTED. IV SITE PATENT, INTACT; FLUSHED. GT PATENT, INTACT; IN PLACE VIA AUSCULTATION. GTF ONGOING; NO RESIDUAL TAKEN. HOB RAISED. WOUND DRESSINGS INTACT. PER DAUGHTER AT BEDSIDE, DO NOT TOUCH/CHANGE ANY WOUND DRESSINGS. GERALDINE FEET OFFLOADED. PATEL CATH PATENT, INTACT; DRAINING CLEAR YELLOW URINE. ON LOW BED WITH BILATERAL UPPER SIDE RAILS UP. CALL SANCHEZ WITHIN EASY REACH. CONTACT ISOLATION MAINTAINED FOR MRSA IN SACRUM AND FOOT WOUND. WILL CONTINUE TO MONITOR.
[2018-05-03 20:00] VITALS: BP_SYST 109; BP_SYST 94; BP_DIAS 40; BP_DIAS 59
[2018-05-04] MEDS: GLUCERNA 1.2 1,000 ML BOTTLE NG PRN (01:33)
[2018-05-04] MEDS: IPRATROPIUM NEB FS 0.5 MG/2.5 ML AMPUL.NEB NEB SCH ×6 (03:55→23:44)
[2018-05-04] MEDS: ALBUTEROL FS 2.5 MG/0.5 ML VIAL.NEB NEB SCH ×6 (03:55→23:44)
--- NOTE | 2018-05-04 06:35 | NUR ---
RN NOTES PATIENT ASLEEP, EASILY AROUSABLE. RESPIRATIONS EVEN. NO SIGNS OF PAIN NOTED. DUE MEDS GIVEN WITH NO ASE NOTED. NEEDS ATTENDED. KEPT CLEAN, DRY, AND COMFORTABLE. TURNED AND REPOSITIONED Q 2 HOURS. WOUND DRESSINGS INTACT. SAFETY PRECAUTIONS AND COMFORT MEASURES IN PLACE. WILL GIVE REPORT TO DAY SHIFT FOR CONTINUITY OF CARE.
[2018-05-04] MEDS: BLOOD SUGAR DIAGNOSTIC 1 EACH STRIP IN SCH ×4 (06:41→21:50)
[2018-05-04] MEDS: INSULIN REGULAR, HUMAN 100 UNIT/ML 3 ML VIAL SQ PRN ×3 (06:43→17:00)
--- NOTE | 2018-05-04 07:13 | NUR ---
MS RN OPENING NOTES RECEIVED PT LAYING IN BED WITH HOB ELEVATED. AWAKE AND RESPONSIVE. RESPIRATIONS ARE EVEN AND UNLABORED. NO FACIAL GRIMACING NOTED. IV SITE INTACT, NO INFILTRATION NOTED. DRESSING KEPT CLEAN AND DRY. GTUBE IN PLACE, TUBING FREE OF KINKS. NO RESIDUAL NOTED. HOB KEPT ELEVATED TP PREVENT ASPIRATION. SAFETY MEASURES ARE IN PLACE. WILL CONTINUE TO MONITOR THROUGHOUT SHIFT.
[2018-05-04] MEDS: ACETYLCYSTEINE 10% SOLN 400 MG/4 ML VIAL NEB SCH ×3 (07:28→23:44)
[2018-05-04 07:37] LABS: CALCIUM, SERUM 8.1 mg/dL (8.5-10.1); CARBON DIOXIDE 31 mmol/L (21-32); CHLORIDE 107 mmol/L (98-107); CREATININE 0.7 mg/dL (0.6-1.3); GLUCOSE 156 mg/dL (74-106); POTASSIUM 3.2 mmol/L (3.5-5.1); SODIUM SERUM 145 mmol/L (136-145); UREA NITROGEN, BLOOD 14 mg/dL (7-18)
[2018-05-04 08:10] VITALS: BP 98/49
[2018-05-04] MEDS: FLUCONAZOLE (100 MG) 100 MG TABLET PO SCH (08:39)
[2018-05-04] MEDS: PANTOPRAZOLE 40 MG VIAL IV SCH (08:39)
[2018-05-04] MEDS: FUROSEMIDE 40 MG/4 ML VIAL IV SCH ×2 (08:39→16:52)
[2018-05-04] MEDS: FERROUS SULFATE UDC 300 MG/5 ML UDC GT SCH ×3 (08:39→16:52)
[2018-05-04] MEDS: LACTOBACILLUS RHAMNOSUS GG 1 EACH CAP.SPRINK GT SCH ×2 (08:39→16:52)
[2018-05-04] MEDS: LEVOTHYROXINE SODIUM 25 MCG TABLET GT SCH (08:39)
[2018-05-04] MEDS: GENTAMICIN 0.1% CREAM 15 GM TUBE TP SCH ×2 (08:40→16:53)
[2018-05-04] MEDS: HYDROGEL DRESSING 90 GM TUBE TP SCH (08:40)
[2018-05-04] MEDS: MEROPENEM 1 G in IV NS 0.9% 100 ML IV SCH (08:43)
[2018-05-04] MEDS: ENOXAPARIN SODIUM 40 MG/0.4 ML DISP.SYRIN SQ SCH (08:46)
[2018-05-04] MEDS: VANCOMYCIN 500 MG in IV D5W 100 ML IV SCH ×2 (10:42→21:46)
[2018-05-04] MEDS: POTASSIUM CHLORIDE 20 MEQ POWDER PACKET GT SCH ×2 (10:42→11:13)
[2018-05-04] MEDS: SIMVASTATIN 20 MG TABLET GT SCH (17:02)
[2018-05-04] MEDS: ACETAMINOPHEN 325 MG TABLET PO PRN (17:21)
--- NOTE | 2018-05-04 18:37 | NUR ---
MS RN CLOSING NOTES ALL DUE MEDS GIVEN, NEEDS MET AND RENDERED. RESPIRATIONS ARE EVEN AND UNLABORED, NOT IN ANY ACUTE DISTRESS NOTED. WOUND CARE DONE BY DTR. INFORMED DTR REGARDING WOUND CARE ORDERS. PER DTR, "NO, I HAVE MY OWN WOUND CARE FOR MY MOM THAT IS WHY IM DOING IT." IV SITE INTACT, NO INFILTRATION NOTED. DRESSING KEPT CLEAN AND DRY. SAFETY MEASURES ARE IN PLACE. WILL ENDORSE TO NEXT SHIFT FOR CONTINUITY OF CARE.
--- NOTE | 2018-05-04 19:30 | NUR ---
MS/RN NOTES RECEIVED PT. LYING IN BED RESTING. WITH EYES CLOSED. PT. IS EASILY AROUSABLE TO TOUCH. PT. IS NON-VERBAL, OPENS EYES. BREATHING EVEN AND UNLABORED 2LPM O2 VIA NC. NO SOB, RESPIRATORY DISTRESS OR S/S OF PAIN NOTED AT THIS TIME. PT. WITH G-TUBE PRESENT, PATENT AND INTACT ADMINISTERING TO PT. GLUCERNA 1.2 @ 50ML/HR. PT. TOLERATING WELL. NO RESIDUAL NOTED AT THIS TIME. PT. WITH RIGHT HAND 22 GAUGE IV SALINE LOCK PRESENT, PATENT AND INTACT. PT. WITH PATEL CATHETER PRESENT, PATENT AND INTACT DRAINING CLEAR YELLOW URINE. PER DAYSHIFT NURSE PT. IS AWAITING PICC LINE INSERTION. ISOLATION PRECAUTIONS IMPLEMENTED AND IN PLACE. BED LOCKED AND IN LOWEST POSITION, SIDE RAILS UP X3, BED ALARM ON, WILL CONTINUE TO MONITOR.
[2018-05-04 20:00] VITALS: BP 115/56
[2018-05-05] MEDS: IPRATROPIUM NEB FS 0.5 MG/2.5 ML AMPUL.NEB NEB SCH ×5 (04:00→19:58)
[2018-05-05] MEDS: ALBUTEROL FS 2.5 MG/0.5 ML VIAL.NEB NEB SCH ×5 (04:01→19:58)
[2018-05-05] MEDS: GLUCERNA 1.2 1,000 ML BOTTLE NG PRN (04:08)
--- NOTE | 2018-05-05 06:11 | NUR ---
MS/RN NOTES PT. IS LYING IN BED RESTING. BREATHING EVEN AND UNLABORED 2LPM O2 VIA NC. NO SOB, RESPIRATORY DISTRESS OR S/S OF PAIN NOTED AT THIS TIME AND THROUGHOUT SHIFT. PT. WITH G-TUBE PRESENT, PATENT AND INTACT ADMINISTERING TO PT. GLUCERNA 1.2 @ 50ML/HR. PT. TOLERATING WELL. NO RESIDUAL NOTED AT THIS TIME AND THROUGHOUT SHIFT. PT. WITH RIGHT HAND 22 GAUGE IV SALINE LOCK PRESENT, PATENT AND INTACT. PT. WITH PATEL CATHETER PRESENT, PATENT AND INTACT DRAINING CLEAR YELLOW URINE. ALL PT. NEEDS MET. PT. OFFLOADED. TURNED AND REPOSITIONED Q2H AND NEEDED. BED LOCKED AND IN LOWEST POSITION, SIDE RAILS UP X3, BED ALARM ON, WILL ENDORSE TO DAYSHIFT NURSE FOR CONTINUITY OF CARE.
[2018-05-05] MEDS: BLOOD SUGAR DIAGNOSTIC 1 EACH STRIP IN SCH ×3 (06:44→17:32)
[2018-05-05] MEDS: INSULIN REGULAR, HUMAN 100 UNIT/ML 3 ML VIAL SQ PRN ×2 (06:46→12:32)
[2018-05-05] MEDS: ACETYLCYSTEINE 10% SOLN 400 MG/4 ML VIAL NEB SCH ×2 (06:58→15:17)
[2018-05-05 07:19] LABS: CALCIUM, SERUM 8.8 mg/dL (8.5-10.1); CARBON DIOXIDE 27 mmol/L (21-32); CHLORIDE 104 mmol/L (98-107); CREATININE 0.7 mg/dL (0.6-1.3); GLUCOSE 198 mg/dL (74-106); POTASSIUM 4.1 mmol/L (3.5-5.1); SODIUM SERUM 140 mmol/L (136-145); UREA NITROGEN, BLOOD 15 mg/dL (7-18)
--- NOTE | 2018-05-05 07:22 | NUR ---
MS RN OPENING NOTES RECEIVED PATIENT AWAKE IN BED IN NO ACUTE SIGNS OF DISTRESS. HOB ELEVATED. ALERT, NON-VERBAL AND RESPONSIVE TO PAIN STIMULI. ISOLATION PRECAUTIONS FOR WOUNDS MAINTAINED. ON 02 VIA N/C AT 2LPM, BREATHING EVEN AND UNLABORED. G-TUBE INTACT AND PATENT WITH FEEDING OF GLUCERNA 1.2 @ 50ML/HR IN PROGRESS, TOLERATING WELL, NO RESIDUAL NOTED AT THIS TIME. IV ACCESS ON RIGHT HAND G#22 SALINE LOCK PATENT AND INTACT. PATEL CATHETER IN PLACE AND PATENT DRAINING CLEAR YELLOW URINE OUTPUT TO COLLECTION BAG. PER NIGHT NURSE PT. IS AWAITING PICC LINE INSERTION. BED LOCKED AND IN LOWEST POSITION WITH SIDE RAILS UP X3. BED ALARM ON,. ALL SAFETY MEASURES IN PLACE. WILL CONTINUE TO MONITOR PT'S STATUS.
[2018-05-05] MEDS: LEVOTHYROXINE SODIUM 25 MCG TABLET GT SCH (07:51)
[2018-05-05 08:00] VITALS: BP 123/53
[2018-05-05] MEDS: FUROSEMIDE 40 MG/4 ML VIAL IV SCH ×2 (08:18→17:29)
[2018-05-05] MEDS: LACTOBACILLUS RHAMNOSUS GG 1 EACH CAP.SPRINK GT SCH ×2 (08:18→17:28)
[2018-05-05] MEDS: PANTOPRAZOLE 40 MG VIAL IV SCH (08:18)
[2018-05-05] MEDS: FERROUS SULFATE UDC 300 MG/5 ML UDC GT SCH ×3 (08:18→17:28)
[2018-05-05] MEDS: FLUCONAZOLE (100 MG) 100 MG TABLET PO SCH (08:19)
[2018-05-05] MEDS: HYDROGEL DRESSING 90 GM TUBE TP SCH (08:20)
[2018-05-05] MEDS: GENTAMICIN 0.1% CREAM 15 GM TUBE TP SCH ×2 (08:20→17:00)
[2018-05-05] MEDS: ENOXAPARIN SODIUM 40 MG/0.4 ML DISP.SYRIN SQ SCH (08:21)
[2018-05-05] MEDS: VANCOMYCIN 500 MG in IV D5W 100 ML IV SCH (10:00)
--- NOTE | 2018-05-05 10:28 | NUR ---
RN NOTES PATIENT FOR PICC LINE INSERTION TODAY AND SCHEDULE WAS VERIFIED BY CHARGE NURSE SIMA THAT IT WILL BE DONE AFTER LUNCH. PT WILL BE DISCHARGED AFTER PICC LINE INSERTION AND TO CONTINUE ON IV ABX X6 WEEKS AT HOME BY HOME HEALTH NURSE. WILL CONTINUE TO MONITOR.
--- NOTE | 2018-05-05 14:12 | NUR ---
RN NOTES DOUBLE LUMEN PICC LINE INSERTED BY PRAKASH AYALA HEALTH ADMINISTRATOR ACCESS NURSE ON LEFT UPPER INNER ARM. CHEST X-RAY CONFIRMED PROPER PLACEMENT AND PICC CAN BE USE. DAUGHTER AT BEDSIDE AND AWARE. WILL CONTINUE TO MONITOR
[2018-05-05] MEDS: ACETAMINOPHEN 325 MG TABLET PO PRN (14:49)
--- NOTE | 2018-05-05 15:18 | NUR ---
PT IS HAVING A PROCEDURE DONE IN THE ROOM. ASKED TO COME AT A LATER TIME. RN IS AWARE.
[2018-05-05] MEDS: EPOETIN ALFA (10,000 UNIT) 10,000 UNIT/ML VIAL IV SCH (15:22)
[2018-05-05 16:00] VITALS: BP 104/53
--- NOTE | 2018-05-05 17:23 | NUR ---
ICE CREAM MIXER INSTRUCTIONS NOTES PATIENT FOR DISCHARGED TONIGHT. DAUGHTER AT BEDSIDE. WOUND TX'S INSISTED AND DONE BY DAUGHTER ON HER OWN WAY. PHOTOS OF WOUNDS TAKEN AND FILED ON CHART. DISCHARGE INSTRUCTIONS AND HEALTH TEACHINGS GIVEN TO PT'S DAUGHTER AND VERBALIZED UNDERSTANDING. ALL BELONGINGS ACCOUNTED FOR AND SIGNED BELONGINGS LIST BY DAUGHTER. DAUGHTER REQUESTED THAT PT'S PATEL CATHETER BE REMOVED BEFORE DISCHARGING PT. EXIT CARE SIGNED BY DAUGHTER . WILL ENDORSE TO TENONER OPERATOR NURSE.
[2018-05-05] MEDS: SIMVASTATIN 20 MG TABLET GT SCH (17:28)
[2018-05-05] MEDS ORDERED: VANCOMYCIN 0.75 GM in IV D5W 250 ML IV SCH (18:00)
--- NOTE | 2018-05-05 18:42 | NUR ---
MS RN CLOSING NOTES PATIENT IN BED LYING COMFORTABLY AT MODERATE HIGH BACKREST POSITION. ALERT, NON-VERBAL AND RESPONSIVE TO PAIN STIMULI. NO SIGNIFICANT CHANGES IN STATUS NOTED THROUGHOUT THE DAY. ON 02 VIA N/C AT 2LPM, TOLERATING WELL WITH NO SOB NOTED. G-TUBE INTACT AND PATENT WITH FEEDING OF GLUCERNA 1.2 @ 50ML/HR IN PROGRESS, TOLERATING WELL. IV ACCESS ON RIGHT HAND G#22 REMOVED, PRESSURE GAUZE APPLIED. DOUBLE LUMEN PICC LINE ON ELVIS INTACT AND PATENT. PATEL CATHETER IN PLACE AND PATENT DRAINING CLEAR YELLOW URINE OUTPUT TO COLLECTION BAG. ISOLATION PRECAUTIONS FOR WOUNDS MAINTAINED. BED LOCKED AND IN LOWEST POSITION WITH SIDE RAILS UP X3. ALL SAFETY MEASURES IN PLACE. ALL NEEDS AND CARE PROVIDED WELL. WILL ENDORSE TO COUNTER INTELLIGENCE AGENT NURSE THAT PT WILL BE DISCHARGED TONIGHT AND TRANSPORTATION WAS ARRANGED FOR 1999.
[2018-05-05 20:00] VITALS: BP 118/42
--- NOTE | 2018-05-05 20:25 | NUR ---
MS RN NOTES AMBULANCE CAME IN TO ARTIFICIAL MARBLE WORKER PT. PT NOT IN ANY DISTRESS. NO SOB NOTED. NO S/SX OF PAIN OR DISCOMFORT AT THIS TIME. WITH PICC LINE PATENT & INTACT. VSS. AFEBRILE. MONITORED ACCORDINGLY. REPORT GIVEN TO AMBULANCE PERSONNEL FOR CONTINUITY OF CARE. DAUGHTER NOTIFIED RE ARTIFICIAL MARBLE WORKER. BELONGINGS SENT HOME WITH PT.
== END 2018-05-05 20:25 | disposition home health service (06) | DRG 871 ==
LOC: ER 20:16 → TELE 21:58 → MED 04-25 09:23
PROVIDERS: ADMIT Hospitalist; ATTEND Hospitalist
PROC: 30233N1 Transfusion of Nonautologous Red Blood Cells into Peripheral Vein, Percutaneous Approach (ICD-10-PCS; principal; 2018-04-29)
PROC: 02HV33Z Insertion of Infusion Device into Superior Vena Cava, Percutaneous Approach (ICD-10-PCS; 2018-05-05)
PROC: B548ZZA Ultrasonography of Superior Vena Cava, Guidance (ICD-10-PCS; 2018-05-05)
DX: A41.9 Sepsis, unspecified organism (principal); L89.154 Pressure ulcer of sacral region, stage 4; L89.324 Pressure ulcer of left buttock, stage 4; L89.314 Pressure ulcer of right buttock, stage 4; L89.894 Pressure ulcer of other site, stage 4; L89.524 Pressure ulcer of left ankle, stage 4; L89.624 Pressure ulcer of left heel, stage 4; L89.614 Pressure ulcer of right heel, stage 4; J69.0 Pneumonitis due to inhalation of food and vomit; J15.6 Pneumonia due to other Gram-negative bacteria; R53.2 Functional quadriplegia; G93.41 Metabolic encephalopathy; E43 Unspecified severe protein-calorie malnutrition; J96.01 Acute respiratory failure with hypoxia; E87.1 Hypo-osmolality and hyponatremia; K94.23 Gastrostomy malfunction; I69.851 Hemiplegia and hemiparesis following other cerebrovascular disease affecting right dominant side; M86.8X8 Other osteomyelitis, other site; E11.65 Type 2 diabetes mellitus with hyperglycemia; B96.1 Klebsiella pneumoniae [K. pneumoniae] as the cause of diseases classified elsewhere; D63.8 Anemia in other chronic diseases classified elsewhere; E03.9 Hypothyroidism, unspecified; E78.5 Hyperlipidemia, unspecified; E87.6 Hypokalemia; Z66 Do not resuscitate; Z90.710 Acquired absence of both cervix and uterus; Z87.01 Personal history of pneumonia (recurrent); Z96.641 Presence of right artificial hip joint; Z96.651 Presence of right artificial knee joint; D50.9 Iron deficiency anemia, unspecified; I51.7 Cardiomegaly; Z83.3 Family history of diabetes mellitus; Z88.2 Allergy status to sulfonamides; E88.09 Other disorders of plasma-protein metabolism, not elsewhere classified; Z68.24 Body mass index [BMI] 24.0-24.9, adult; R13.10 Dysphagia, unspecified; D47.3 Essential (hemorrhagic) thrombocythemia; Z88.1 Allergy status to other antibiotic agents; E11.51 Type 2 diabetes mellitus with diabetic peripheral angiopathy without gangrene; E11.69 Type 2 diabetes mellitus with other specified complication; B96.5 Pseudomonas (aeruginosa) (mallei) (pseudomallei) as the cause of diseases classified elsewhere; Y84.8 Other medical procedures as the cause of abnormal reaction of the patient, or of later complication, without mention of misadventure at the time of the procedure; Y73.8 Miscellaneous gastroenterology and urology devices associated with adverse incidents, not elsewhere classified; B95.2 Enterococcus as the cause of diseases classified elsewhere; Y92.009 Unspecified place in unspecified non-institutional (private) residence as the place of occurrence of the external cause; Z79.84 Long term (current) use of oral hypoglycemic drugs
CPT/HCPCS: 31720; 36415; 36569; 36600; 71045-TC; 80048-TC; 80061-TC; 80076-TC; 80202-TC; 81000-TC; 82306; 82746; 82945-TC; 82962-TC; 83540-TC; 83605-TC; 83735-TC; 84100-TC; 84439-TC; 84443-TC; 84484-TC; 85025-TC; 85730-TC; 86850-TC; 86921-TC; 87040-TC; 87070-TC; 87081-TC; 87086-TC; 87186-TC; 94668-TC; 94799-TC; A4606; A6248; A6253; A6402; A6403; C1751; C9113; J0885; J1650; J1815; J1940; J2185; J3370; J3490; J7030; J7040; J7050; J7060; P9016-BL; Z7610

== ENCOUNTER 2018-05-19 11:48 | Inpatient (IN) | payer MEDICARE, OTHER ==
[2018-05-19] VITALS (13 sets, daily range): BP systolic 102–147; BP diastolic 40–93
[~2018-05-19] VITALS: Ht 152.4 cm; Wt 63.5 kg
[~2018-05-19 11:48] MED LIST changes: -ERTA1VIA2 IV; -LINE600T GT
--- NOTE | 2018-05-19 12:05 | NUR ---
BB PRIVATE EMS FROM HOME C/O PICC LINE EVAL DUE TO LEAKAGE. A/OX 1, BREATHING EVEN AND UNLABORED. NO SOB, NAD, VITALS STABLE. SAFETY AND COMFORT MEASURES IN PLACE. AWAITING MD MILIAN.
--- NOTE | 2018-05-19 13:08 | NUR ---
Note noah in ED - 05/19/18 at 1327 by PRISCILLA BB PRIVATE EMS FROM HOME C/O PICC LINE EVAL DUE TO LEAKAGE. DAUGHTER AT BEDSIDE. ON ROOM AIR AND VITAL SIGNS ARE STABLE. PICC LINE DRESSING CHANGED AND TIGHTEN PORT. KEPT COMFORTABLE. WILL CONTINUE TO MONITOR.
[2018-05-19 13:09] LABS: BASOPHILS % (AUTO) 0.2 % (0.0-2.0); EOSINOPHILS % (AUTO) 2.3 % (0.0-6.0); LYMPHOCYTES # (AUTO) 0.6 /CMM (0.8-4.8); LYMPHOCYTES % (AUTO) 4.4 % (20.0-44.0); MEAN CORPUSCULAR HGB CONC 33 g/dl (31.0-36.0); MEAN CORPUSCULAR VOLUME 76 fL (82-100); MONOCYTES # (AUTO) 0.1 /CMM (0.1-1.30); MONOCYTES % (AUTO) 0.5 % (2.0-12.0); NEUTROPHILS # (AUTO) 11.7 /CMM (1.8-8.9); NEUTROPHILS % (AUTO) 92.6 % (43.0-81.0); PLATELET COUNT (AUTO) 621 /CMM (150-450); RDW COEFFICIENT OF VARIATION 19.1 (11.5-15.0); RED BLOOD CELL COUNT(AUTO) 2.65 MIL/uL (4.0-5.2); WHITE BLOOD COUNT (AUTO) 12.7 K/uL (4.3-11.0)
[2018-05-19 13:11] LABS: HEMATOCRIT 20 % (33-45)
[2018-05-19 13:12] LABS: HEMOGLOBIN 6.7 g/dL (11.5-14.8)
--- NOTE | 2018-05-19 13:16 | NUR ---
RECEIVED A CALL FROM THE LAB REGARDING HGB OF 6.[address] BARONE AND MADE AWARE.
[2018-05-19 13:48] LABS: EOSINOPHILS % (MANUAL) 1 % (0-4); LYMPHOCYTES % (MANUAL) 12 % (16-48); MONOCYTES % (MANUAL) 4 % (0-11.0); NEUTROPHILS % (MANUAL) 83 (42-76)
[2018-05-19] MEDS ORDERED: VANC750F IV (13:55)
[2018-05-19] MEDS ORDERED: *INSULIN REGULAR(HUMULIN R)HUM 100 UNIT/ML VIAL SQ PRN (14:00)
[2018-05-19] MEDS ORDERED: DEXTROSE 50%-WATER 50 ML DISP.SYRIN IV PRN (14:00)
[2018-05-19] MEDS ORDERED: MAG HYDROX/AL HYDROX/SIMETH 30 ML UDC PO PRN (14:00)
[2018-05-19] MEDS ORDERED: ONDANSETRON HCL/PF 4 MG/2 ML VIAL IVP PRN (14:00)
[2018-05-19] MEDS ORDERED: COLLAGENASE 15 GM TUBE TP SCH (14:00)
[2018-05-19] MEDS ORDERED: GLUCERNA 1.2 1,000 ML BOTTLE GT PRN ×2 (14:00→15:25)
[2018-05-19] MEDS ORDERED: HYDROCODONE/APAP 5/325MG 1 EACH TABLET PO PRN (14:00)
[2018-05-19] MEDS ORDERED: Z GUARD REMEDY 2 OZ OINT TP PRN (14:00)
[2018-05-19] MEDS ORDERED: MUPIROCIN OINT 2% 22 GM TUBE TP PRN (14:00)
[2018-05-19] MEDS ORDERED: MAGNESIUM HYDROXIDE 30 ML UDC PO PRN (14:00)
[2018-05-19 14:02] LABS: ALANINE AMINOTRANSFERASE 15 U/L (12-78); ALKALINE PHOSPHATASE 161 U/L (46-116); ASPARTATE AMINOTRANSFERASE 20 U/L (15-37); BILIRUBIN,DIRECT 0.1 mg/dL (0.0-0.2); BILIRUBIN,TOTAL 0.2 mg/dL (0.2-1.0); CALCIUM, SERUM 9.4 mg/dL (8.5-10.1); CARBON DIOXIDE 27 mmol/L (21-32); CHLORIDE 104 mmol/L (98-107); CREATININE 0.7 mg/dL (0.6-1.3); GLUCOSE 183 mg/dL (74-106); POTASSIUM 3.6 mmol/L (3.5-5.1); SODIUM SERUM 137 mmol/L (136-145); TOTAL PROTEIN, SERUM 5.3 g/dL (6.4-8.2); UREA NITROGEN, BLOOD 13 mg/dL (7-18)
[2018-05-19 14:05] LABS: ALBUMIN 0.9 g/dL (3.4-5.0)
--- NOTE | 2018-05-19 14:07 | NUR ---
REPORT GIVEN TO PAPO EDUARDO FOR LAURA UPON ADMISSION.
--- NOTE | 2018-05-19 14:10 | NUR ---
RN NOTES RECEIVED PT IN ROOM 105, FROM ER . 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 LOWER EXTREMISTS. PT DAUGHTER REFUSED TO HAVE THE DRESSING REMOVED IN ORDER TO TAKE ADMISSION SKIN AND WOUND PHOTOS , SHE STATED NO BODY SHOULD TOUCH THESE DRESSING AND SHE WILL DO HER OWN TREATMENT FROM HOME .EXPLAINED TO PT'S DAUGHTER HOW IMPORTANT IT IS TO FOLLOW WOUND AND PLAN OF CARE , SHE STILL REFUSED. L UPPER ARM PICC LINE CDI, SR UP x3, CALL LIGHT WITHIN EASY REACH, BED LOCKED AND IN LOWEST POSITION , CONTINUE TO MONITOR.
[2018-05-19 14:16] LABS: INR 1.13 (0.85-1.15)
--- NOTE | 2018-05-19 14:17 | NUR ---
PATIENT TRANSPORTED TO 105 VIA ACLS PROTOCOL. RNPAPO TO PROVIDE LAURA.
[2018-05-19] MEDS ORDERED: KEY,NONCONTROL,TO KEEP IN PYXI 1 EA MC ONE (14:41)
[2018-05-19] MEDS ORDERED: VANCOMYCIN 1 GM in IV D5W 250 ML IV SCH (16:00)
[2018-05-19] MEDS ORDERED: LOSARTAN POTASSIUM 50 MG TABLET GT PRN (16:30)
[2018-05-19] MEDS ORDERED: FEE PK DOSING 1 MIN EA MC ONE (16:48)
[2018-05-19] MEDS: BLOOD SUGAR DIAGNOSTIC 1 EACH STRIP VI SCH ×2 (17:07→23:12)
[2018-05-19] MEDS: FERROUS SULFATE (325 MG) 325 MG/TAB TABLET GT SCH (17:07)
[2018-05-19] MEDS: METOPROLOL TARTRATE 50 MG TABLET GT SCH (17:09)
[2018-05-19] MEDS ORDERED: SIMVASTATIN 20 MG TABLET GT SCH (18:00)
--- NOTE | 2018-05-19 18:00 | NUR ---
RN NOTES TF AT 50CC/HR RUNNING VIA GT , TOLERATING WELL, NO RESIDUAL NOTED. ONE UNIT OF PRBC INFUSING VIA L UPPER ARM PICC LINE , NO COMPLICATION NOTED, WILL ENDORSE TO COFFEE WEIGHER NURSE FOR LAURA
[2018-05-19 19:39] LABS: THYROID STIMULATING HORMONE 6.925 uIU/mL (0.358-3.74); URIC ACID 4.6 mg/dL (2.6-7.2)
--- NOTE | 2018-05-19 20:05 | NUR ---
RN NOTES RECEIVED BEDSIDE REPORT FROM AM NURSE. PT IN ROOM 105 . 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 NO SOB NO CHANGE IN V/S DURING RBC INFUSION. GTF GLUCERNA 1.2 @50ML/HR NOTED ,SEVERAL DRESSINGS NOTED TO BACK, SACRAL, HIPS AND GERALDINE. LOWER EXTREMISTS. PT DAUGHTER REFUSED TO HAVE THE DRESSING REMOVED IN ORDER TO TAKE ADMISSION SKIN AND WOUND PHOTOS , SHE STATED NO BODY SHOULD TOUCH THESE DRESSING AND SHE WILL DO HER OWN TREATMENT FROM HOME . ALL SAFETY MEASURES ARE IMPLEMENTED, BED IN LOW, LOCKED POSITION, CALL LIGHT IN REACH. WILL CONT. TO MONITOR.
[2018-05-19] MEDS: ACETAMINOPHEN 325 MG TABLET PO PRN (21:32)
[2018-05-20] VITALS (7 sets, daily range): BP systolic 96–130; BP diastolic 43–55
[2018-05-20] MEDS: INSULIN REGULAR, HUMAN 100 UNIT/ML 3 ML VIAL SQ PRN ×3 (00:49→12:00)
[2018-05-20] MEDS: ACETAMINOPHEN 325 MG TABLET PO PRN ×2 (05:14→11:56)
[2018-05-20 06:03] LABS: BASOPHILS % (AUTO) 0.3 % (0.0-2.0); EOSINOPHILS % (AUTO) 2.6 % (0.0-6.0); HEMATOCRIT 31 % (33-45); HEMOGLOBIN 9.8 g/dL (11.5-14.8); LYMPHOCYTES # (AUTO) 2.2 /CMM (0.8-4.8); LYMPHOCYTES % (AUTO) 14.4 % (20.0-44.0); MEAN CORPUSCULAR HGB CONC 31 g/dl (31.0-36.0); MEAN CORPUSCULAR VOLUME 83 fL (82-100); MONOCYTES # (AUTO) 1.3 /CMM (0.1-1.30); MONOCYTES % (AUTO) 8.5 % (2.0-12.0); NEUTROPHILS # (AUTO) 11.3 /CMM (1.8-8.9); NEUTROPHILS % (AUTO) 74.2 % (43.0-81.0); PLATELET COUNT (AUTO) 611 /CMM (150-450); RDW COEFFICIENT OF VARIATION 19.6 (11.5-15.0); RED BLOOD CELL COUNT(AUTO) 3.77 MIL/uL (4.0-5.2); WHITE BLOOD COUNT (AUTO) 15.2 K/uL (4.3-11.0)
[2018-05-20 06:11] LABS: CALCIUM, SERUM 9.2 mg/dL (8.5-10.1); CARBON DIOXIDE 24 mmol/L (21-32); CHLORIDE 105 mmol/L (98-107); CREATININE 0.7 mg/dL (0.6-1.3); GLUCOSE 122 mg/dL (74-106); MAGNESIUM 1.7 mg/dL (1.8-2.4); PHOSPHORUS 2.4 mg/dL (2.5-4.9); POTASSIUM 3.6 mmol/L (3.5-5.1); SODIUM SERUM 137 mmol/L (136-145); UREA NITROGEN, BLOOD 14 mg/dL (7-18)
--- NOTE | 2018-05-20 07:10 | NUR ---
RN INITIAL NOTES: REC'D PT ON BED W/ HOB ELEVATED, AWAKE, NOT IN ANY DISTRESS. ON NC AT 2LPM, SATING AT 97%. ON TELEMONITOR, SR W/ HR 98BPM. HAS ELVIS PICC LINE, PATENT & INTACT W/ NO S/SX OF INFECTION/LEAK NOTED, TKO INFUSING WELL. HAS GT PATENT & INTACT W/ GLUCERNA X 50 CC/HR INFUSING WELL, NO RESIDUAL NOTED UPON CHECKING. PER REPORT, ONLY DTR CAN TOUCH PT'S WOUNDS. PROVIDED COMFORT & SAFETY MEASURES. BED KEPT LOW & IN LOCKED POS. CALL LIGHT PLACED W/IN REACH. WILL CONTINUE TO MONITOR & ATTEND PT NEEDS.
--- NOTE | 2018-05-20 08:00 | NUR ---
RN NOTES: REC'D CALL FROM DTR BB & ASKING ABOUT UPDATES RE: PT CURRENT CONDITION WELL LAB RESULTS. DTR QUESTIONING ABOUT THE VANCO DOSAGE THAT WAS GIVEN YESTERDAY. TRIED TO EXPLAIN THE REASON WHY FOR DOSE READJUSTMENT BUT DTR WANTED TO TALK TO THE PHARMACIST OR PCP. SYLVIA PHARMACIST MADE AWARE, ORDERED FOR VANCO TROUGH LEVEL.
[2018-05-20] MEDS: BLOOD SUGAR DIAGNOSTIC 1 EACH STRIP VI SCH ×2 (08:09→12:00)
[2018-05-20] MEDS: FERROUS SULFATE (325 MG) 325 MG/TAB TABLET GT SCH ×2 (08:35→12:00)
[2018-05-20] MEDS: METOPROLOL TARTRATE 50 MG TABLET GT SCH (08:35)
[2018-05-20] MEDS ORDERED: ASCORBIC ACID 500 MG TABLET GT SCH (09:00)
[2018-05-20] MEDS ORDERED: ZINC SULFATE 220 MG CAPSULE GT SCH (09:00)
[2018-05-20] MEDS ORDERED: LEVOTHYROXINE SODIUM 25 MCG TABLET GT SCH (09:00)
--- NOTE | 2018-05-20 09:15 | NUR ---
RN NOTES: DTR AT BEDSIDE W/ SPECIAL REQUEST TO ALWAYS TURN ON PT'S LIGHT IN THE ROOM, NOT TO DRAW BLOOD FROM PERIPHERAL AND NO WOUND CARE. PT SEEN & EXAMINED BY DR. FITZPATRICK, DTR WAS ABLE TO THE MD. DTR VERBALIZED THAT SHE WILL DC HER MOM TODAY.
--- NOTE | 2018-05-20 09:58 | NUR ---
RT PER DAUGHTER REQUEST PATIENT NT SUCTIONED WITH SMALL AMT OF CLEAR SEMITHICK SECRETIONS. B/S CLEAR, NO SOB NOTED
--- NOTE | 2018-05-20 10:15 | NUR ---
RN NOTES: DTR WAS ABLE TO SPEAK W/ SYLVIA (PHARMACIST) & VERBALIZED UNDERSTANDING RE: VANCOMYCIN DOSING. AWAITING FOR VANCO TROUGH LEVEL RESULT.
--- NOTE | 2018-05-20 10:25 | NUR ---
RN NOTES: PT SEEN & EXAMINED BY DR. NICOLE. PER DTR REQUEST TO DC PT HOME TODAY. AGREED.
[2018-05-20] MEDS ORDERED: MAGNESIUM OXIDE 400 MG TABLET GT ONE (10:30)
[2018-05-20] MEDS ORDERED: NEUTRA PHOS 1 POWD.PACKET GT ONE (13:30)
--- NOTE | 2018-05-20 15:00 | NUR ---
TRUST VAULT CLERK NOTES: PT DC'D TO HOME W/ HH ORDERED. DC DOCUMENTS & WOUND CARE SUPPLIES GIVEN TO THE CATECHIST. DC INSTRUCTIONS EXPLAINED TO THE CATECHIST W/ SPECIAL EMPHASIS ABOUT PT'S WOUNDS. GT KEPT PATENT & INTACT, FLUSHING WELL, NO S/SX OF INFECTION ON THE GT SITE. ELVIS PICC LINE, DOUBLE LUMEN, BOTH FLUSHING WELL, NOTED BLOOD RETURN UPON ASPIRATING, DRESSING IS C/D/I, STERILE CAPS PLACED ON, NO S/SX OF INFECTION NOTED. CALLED DTR BB & INFORMED ABOUT THE PICKUP TIME WELL MADE HER AWARE THAT PT HAD A BM THAT NEEDS TO DO WOUND CARE ON SACRAL & BUTTOCKS AREA. DTR VERBALIZED THAT'S FINE BUT NOT TO TOUCH THE WOUND ON THE FEET. NO BELONGINGS NOTED. PT LEFT IN STABLE CONDITION VIA GURNEY ACCOMPANIED BY 2 CATECHIST. NO CONCERN IDENTIFIED UPON DC. PT SATING AT 97% ON ROOM AIR. Addendum: 05/20/18 at 1652 by REYNOLD CHAVEZ RN ADDENDUM: DTR TRAVIS REFUSED TO TAKE PHOTOS OF THE WOUNDS.
[2018-05-20] MEDS ORDERED: VANCOMYCIN 0.75 GM in IV NS 0.9% 250 ML IV SCH (18:00)
--- NOTE | 2018-05-21 12:48 | NUR ---
ROBERTO received a voicemail from [facility] social worker palliative care Myesha requesting discharge date for the patient. ROBERTO called back APS ROBERTO and left her a voicemail message informing her that pt. was discharged back home with home health services on 05/20/18.
[2018-05-21] MEDS ORDERED: EPOETIN ALFA (10,000 UNIT) 10,000 UNIT/ML VIAL SQ SCH (15:00)
[2018-05-22 02:12] LABS: HAPTOGLOBIN 406 mg/dL (34-200)
[2018-05-22 11:40] LABS: *SPE A/G RATIO 0.4 (0.7-1.7); *SPE ALBUMIN 1.2 g/dL (2.9-4.4); *SPE ALPHA-1-GLOBULIN 0.5 g/dL (0.0-0.4); *SPE ALPHA-2-GLOBULIN 1.1 g/dL (0.4-1.0); *SPE BETA GLOBULIN 0.7 g/dL (0.7-1.3); *SPE GLOBULIN, TOTAL 3.3 g/dL (2.2-3.9); *SPE M-SPIKE Not Observed g/dL (Not Observed)
== END 2018-05-20 14:56 | disposition home health service (06) | DRG 811 ==
LOC: ER 11:50 → TELE1 14:05
PROVIDERS: ADMIT Internal Medicine; ATTEND Internal Medicine
PROC: 30233N1 Transfusion of Nonautologous Red Blood Cells into Peripheral Vein, Percutaneous Approach (ICD-10-PCS; principal; 2018-05-19)
DX: D50.9 Iron deficiency anemia, unspecified (principal); G92 Toxic encephalopathy; L03.116 Cellulitis of left lower limb; L03.115 Cellulitis of right lower limb; I69.851 Hemiplegia and hemiparesis following other cerebrovascular disease affecting right dominant side; E11.9 Type 2 diabetes mellitus without complications; E03.9 Hypothyroidism, unspecified; D63.8 Anemia in other chronic diseases classified elsewhere; E78.5 Hyperlipidemia, unspecified; F03.90 Unspecified dementia, unspecified severity, without behavioral disturbance, psychotic disturbance, mood disturbance, and anxiety; I10 Essential (primary) hypertension; J44.9 Chronic obstructive pulmonary disease, unspecified; Z93.1 Gastrostomy status; Z90.710 Acquired absence of both cervix and uterus; Z96.649 Presence of unspecified artificial hip joint; Z96.659 Presence of unspecified artificial knee joint; Z79.84 Long term (current) use of oral hypoglycemic drugs
CPT/HCPCS: 36415; 71045-TC; 80048-TC; 80076-TC; 80202-TC; 82306; 82378; 82728-TC; 82746; 82962-TC; 83010; 83540-TC; 83615-TC; 83735-TC; 84100-TC; 84155; 84165; 84443-TC; 84550-TC; 85025-TC; 85045-TC; 85652-TC; 85730-TC; 86850-TC; 86921-TC; 87081-TC; A6253; A6403; J1815; J3370; J7050; J7060; P9016-BL

== ENCOUNTER 2018-05-22 13:50 | Inpatient (IN) | payer MEDICARE, OTHER ==
[~2018-05-22] VITALS: Ht 154.9 cm; Wt 61.7 kg
[~2018-05-22 13:50] MED LIST changes: +EPOE1VIA12 IJ; -EPOE1VIA12 SQ; -METF-440 GT; +METF500T6 GT; +VANC750F IV
--- NOTE | 2018-05-22 14:05 | NUR ---
PT OBTUNDED. OPEN EYES TO TOUCH ONLY. IN ER TODAY FOR PICC LINE REPLACENT. NEG ACUTE DISTRESS. STABLE CONDITON. SAFETY MEASURES IN PLACE.
--- NOTE | 2018-05-22 14:46 | NUR ---
UNDERGOING PICC LINE PROCEDURE AT BEDSIDE. Addendum: 05/22/18 at 1503 by ANN SALINE LOCK NOT DONE DUE TO PICC LINE INSERTION.
[2018-05-22 15:19] LABS: BASOPHILS % (AUTO) 0.4 % (0.0-2.0); EOSINOPHILS % (AUTO) 2.1 % (0.0-6.0); HEMATOCRIT 27 % (33-45); HEMOGLOBIN 9.1 g/dL (11.5-14.8); LYMPHOCYTES % (AUTO) 16.4 % (20.0-44.0); MEAN CORPUSCULAR HEMOGLOBIN 27 PG (26.0-33.0); MEAN CORPUSCULAR HGB CONC 34 g/dl (31.0-36.0); MEAN CORPUSCULAR VOLUME 79 fL (82-100); MONOCYTES % (AUTO) 8.2 % (2.0-12.0); NEUTROPHILS # (AUTO) 8.6 /CMM (1.8-8.9); NEUTROPHILS % (AUTO) 72.9 % (43.0-81.0); PLATELET COUNT (AUTO) 593 /CMM (150-450); RDW COEFFICIENT OF VARIATION 18.6 (11.5-15.0); WHITE BLOOD COUNT (AUTO) 11.9 K/uL (4.3-11.0)
[2018-05-22 15:29] LABS: CALCIUM, SERUM 8.6 mg/dL (8.5-10.1); CARBON DIOXIDE 27 mmol/L (21-32); CHLORIDE 104 mmol/L (98-107); CREATININE 0.6 mg/dL (0.6-1.3); GLUCOSE 158 mg/dL (74-106); POTASSIUM 3.3 mmol/L (3.5-5.1); SODIUM SERUM 135 mmol/L (136-145); UREA NITROGEN, BLOOD 12 mg/dL (7-18)
[2018-05-22 15:37] LABS: INR 1.13 (0.85-1.15)
--- NOTE | 2018-05-22 15:40 | NUR ---
ULTRASOUND AT BEDSIDE
--- NOTE | 2018-05-22 16:16 | NUR ---
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
[2018-05-22] MEDS ORDERED: POTASSIUM CHLORIDE 20 MEQ TAB.PRT.SR PO ONE (16:30)
--- NOTE | 2018-05-22 16:57 | NUR ---
FAMILY INSTRUCTIONS FOR "NO SURGICAL DRESSING TO BE DONE BY [facility]." IT WILL BE DONE BY FAMILY AND FAMILY NURSE.
[2018-05-22] MEDS ORDERED: HEPARIN INFUSION/D5W 500 ML IV PRN (17:00)
--- NOTE | 2018-05-22 17:14 | NUR ---
HEPRIN DRIP STARTED PER MD ORDER
[2018-05-22] MEDS ORDERED: NUT.237L28 GT (17:24)
[2018-05-22 18:00] VITALS: BP 135/71
--- NOTE | 2018-05-22 18:04 | NUR ---
REPORT GIVEN TO JAYCE DELCID BED 310.
[2018-05-22] MEDS ORDERED: MAGNESIUM HYDROXIDE 30 ML UDC PO PRN (18:30)
[2018-05-22] MEDS ORDERED: ONDANSETRON HCL/PF 4 MG/2 ML VIAL IVP PRN (18:30)
[2018-05-22] MEDS ORDERED: Z GUARD REMEDY 2 OZ OINT TP PRN (18:30)
[2018-05-22] MEDS ORDERED: MAG HYDROX/AL HYDROX/SIMETH 30 ML UDC PO PRN (18:30)
[2018-05-22] MEDS ORDERED: ZOLPIDEM TARTRATE 5 MG TABLET PO PRN (18:30)
[2018-05-22] MEDS ORDERED: HYDROCODONE/APAP 5/325MG 1 EACH TABLET PO PRN (18:30)
[2018-05-22] MEDS ORDERED: ACETAMINOPHEN 325 MG TABLET PO PRN (18:30)
--- NOTE | 2018-05-22 18:30 | NUR ---
ms die turner notes Admitted a 82 years old female patient via gurney accompanied by ER nurse and daughter, came in due to left upper extremity DVT, on heparin drip @ 1100units/hr. Patient is obtunded, open her left eye. Picc line on the left upper arm intact and patent. Dr. Grant is aware of the admission and admission orders on file. Tube feeding ordered. Per daughter patient is DNR/DNI. Vital signs checked and recorded. Kept patient clean and comfortable in bed. Endorsed to next shift RN to continue care.
--- NOTE | 2018-05-22 19:15 | NUR ---
MS/RN OPENING NOTES PT RECEIVED RESTING COMFORTABLY IN BED. DAUGHTER BB AT BEDSIDE. DAUGHTER WILL BE BACK AROUND [phone] FOR DRESSING CHANGE. PER DAUGHTER, DO NOT REMOVE THE DRESSINGS. PT IS ON ROOM AIR, BREATHING EVEN AND UNLABORED. NO S/S OF DISTRESS, SOB OR PAIN, NO FACIAL GRIMACING NOTED. ELVIS PICC LINE RUNNING HEPARIN AT 1100 UNITS/HR. NO S/S OF ACTIVE BLEEDING NOTED. GT CLAMPED. HOB IN SEMI FOWLERS. HEEL PROTECTORS ON AND ELEVATED ON PILLOWS. BED IN LOW/LOCKED POSITION WITH CALL LIGHT IN REACH. SIDE RAILS UPX.3. WILL CONTINUE TO MONITOR.
[2018-05-22 20:00] VITALS: BP 135/74
[2018-05-22] MEDS: IV 1/2NS 1000 ML 1,000 ML IV PRN (20:47)
[2018-05-22] MEDS ORDERED: GLUCERNA 1.2 1,000 ML BOTTLE GT PRN (21:00)
[2018-05-22] MEDS ORDERED: VANCOMYCIN 1 GM VIAL ONE (21:47)
[2018-05-22] MEDS ORDERED: METOPROLOL TARTRATE 50 MG TABLET GT PRN (22:00)
[2018-05-22] MEDS ORDERED: COLLAGENASE 15 GM TUBE TP SCH (22:00)
[2018-05-22] MEDS ORDERED: GLUCERNA 1.2 1,000 ML BOTTLE GT SCH (22:00)
[2018-05-22] MEDS ORDERED: MUPIROCIN OINT 2% 22 GM TUBE TP SCH (22:00)
[2018-05-22] MEDS ORDERED: VANCOMYCIN 1 GM in IV D5W 250 ML IV SCH (22:00)
[2018-05-22] MEDS ORDERED: VANCOMYCIN 0.75 GM in IV D5W 250 ML IV SCH ×2 (22:30→23:00)
--- NOTE | 2018-05-22 23:30 | NUR ---
MS/RN NOTES PT'S DAUGHTER UPSET, SAYING THAT PT NEEDS VANCO IV FOR TONIGHT. DR. ALFREDO NOTIFIED. ENTERED ORDERS FOR VANCO 1G IV Q12H. DAUGHTER REFUSED THE 1G SAYING THAT THE PT IS "ALWAYS ON 750MG BECAUSE THE VANCO LEVEL GOES TOO HIGH. LAST LEVEL WAS 20-21". INFORMED DR. ALFREDO, OKAY TO CHANGE TO 750MG. UNABLE TO ADMINISTER 750MG VANCO BECAUSE EMAR SAID VANCO WAS ADMINISTERED IN ER AT 2145, APPROX WHEN WAITSTAFF OVER [facility]. DOES NOT APPEAR THAT VANCO WAS GIVEN IN ER AND WAS NOT GIVEN SINCE PT ARRIVED TO UNIT. SPOKE TO [facility], INFORMED THEM THAT PER DAUGHTER, LAST DOSE OF VANCO WAS GIVEN YESTERDAY AT APPROX 1900. PHARMACY CHANGED TO ONE TIME ADMINISTRATION AND WILL ADJUST DOSING
--- NOTE | 2018-05-23 | NUR ---
MS/RN NOTES DAUGHTER COMPLETED DRESSING CHANGES TO LEFT AND RIGHT LOWER EXTREMITY, SACRUM AND BUTTOCK AREA, AND RIGHT LATERAL BACK. HEEL PROTECTORS APPLIED AND ELEVATED ON PILLOW. PER DAUGHTER, DO NOT CHANGE DRESSINGS. ONLY CHANGE SACRAL/BUTTOCK DRESSING UNLESS EXTREMELY SOILED, WILL COME AND DO DRESSING CHANGE AGAIN IN THE AM.
[2018-05-23 00:20] LABS: INR 1.11 (0.87-1.13)
[2018-05-23] MEDS ORDERED: HEPARIN SODIUM,PORCINE/PF 50 UNIT/5 ML DISP.SYRIN IV ONE (01:30)
[2018-05-23] MEDS ORDERED: HEPARIN SODIUM, PORCINE 5000 UNITS/1 ML VIAL ONE (01:35)
--- NOTE | 2018-05-23 01:50 | NUR ---
MS/RN NOTES PT=11.6, INR=1.11, PTT=45 WITH HEPARIN INFUSING AT 1100 UNITS/HR. GAVE HEPARIN BOLUS OF 2400 UNITS PER PROTOCOL AND INCREASED DRIP BY 100 UNITS/HR, NOW RUNNING AT 1200 UNITS/HR. NEXT SET OF COAGS ORDERED FOR 0745
[2018-05-23] MEDS ORDERED: HEPARIN SODIUM, PORCINE 5000 UNITS/1 ML VIAL IV ONE (02:00)
--- NOTE | 2018-05-23 07:01 | NUR ---
MS/RN CLOSING NOTES PT RESTING COMFORTABLY IN BED. SPONTANEOUSLY OPENS EYES, NON VERBAL. RIGID EXTREMITIES. ON ROOM AIR, BREATHING EVEN AND UNLABORED. NO S/S OF SOB, PAIN OR DISTRESS NOTED. APPEARS COMFORTABLE. ELVIS PICC LINE RUNNING HEPARIN AT 1200 UNITS/HR (24ML/HR) AND 1/2 NS AT 75ML/HR. NEXT PTT, INR, PT LEVEL TO BE DRAWN AT 0745. NO SIGNS OF ACTIVE BLEEDING NOTED. GT FEEDING RUNNING ORDERED. <5 ML RESIDUAL NOTED. TURNED/REPOSITIONED Q2H, HEEL PROTECTORS IN PLACE AND OFFLOADED ON PILLOWS AT ALL TIME. ALL DRESSING CHANGED WITH DAUGHTER, DAUGHTER TO CHANGE AGAIN THIS AM. BED REMAINS IN LOW/LOCKED POSITION WITH CALL LIGHT IN REACH. SIDE RAILS UPX3. WILL ENDORSE TO DAY SHIFT RN LAURA.
[2018-05-23] MEDS ORDERED: VANCOMYCIN 0.75 GM in IV D5W 250 ML IV SCH (07:22)
[2018-05-23] MEDS ORDERED: COLLAGENASE 15 GM TUBE TP SCH (07:30)
--- NOTE | 2018-05-23 07:30 | NUR ---
RN MS OPENING NOTES RECEIVED PATIENT IN BED WITH EYES OPEN. ALERT AND ORIENTED X0. NONVERBAL. IN STABLE CONDITION. BREATHING EVEN AND UNLABORED. ON ROOM AIR - TOLERATING WELL. NO S/S OF PAIN, NO FACIAL GRIMACING. SKIN WARM AND DRY TO TOUCH. GTF RUNNING - GLUCERNA 1.2 @ 50ML/HR - INFUSING AND TOLERATING WELL. ELVIS PICC LINE PATENT AND INTACT - CURRENTLY INFUSING HEPARIN AT 1200UNITS/HR AND 1/2 NS @ 75ML/HR. NO SIGNS OF BLEEDING. UPPER AND LOWER EXTREMITIES RIGID. HEEL PROTECTORS ON. REMAINS ON CONTACT ISOLATION. ALL OTHER NEEDS ATTENDED TO. CALL LIGHT WITHIN REACH. BED ON LOWEST LOCKED POSITION. WILL CONTINUE TO MONITOR.
[2018-05-23 07:33] LABS: BASOPHILS % (AUTO) 0.3 % (0.0-2.0); EOSINOPHILS % (AUTO) 1.6 % (0.0-6.0); HEMATOCRIT 27 % (33-45); HEMOGLOBIN 8.8 g/dL (11.5-14.8); LYMPHOCYTES % (AUTO) 13.9 % (20.0-44.0); MEAN CORPUSCULAR HEMOGLOBIN 26 PG (26.0-33.0); MEAN CORPUSCULAR HGB CONC 32 g/dl (31.0-36.0); MEAN CORPUSCULAR VOLUME 82 fL (82-100); MONOCYTES % (AUTO) 7.2 % (2.0-12.0); NEUTROPHILS # (AUTO) 10.9 /CMM (1.8-8.9); PLATELET COUNT (AUTO) 533 /CMM (150-450); RDW COEFFICIENT OF VARIATION 20.4 (11.5-15.0); RED BLOOD CELL COUNT(AUTO) 3.34 MIL/uL (4.0-5.2); WHITE BLOOD COUNT (AUTO) 14.1 K/uL (4.3-11.0)
[2018-05-23 07:36] LABS: CHOLESTEROL 64 mg/dL (<200); HDL CHOLESTEROL 29 mg/dL (40-60); LDL 26 mg/dL (0-99); TRIGLYCERIDES 90 mg/dL (30-150)
[2018-05-23 07:40] LABS: ALANINE AMINOTRANSFERASE 15 U/L (12-78); ALKALINE PHOSPHATASE 147 U/L (46-116); ASPARTATE AMINOTRANSFERASE 17 U/L (15-37); BILIRUBIN,TOTAL 0.2 mg/dL (0.2-1.0); CALCIUM, SERUM 7.8 mg/dL (8.5-10.1); CARBON DIOXIDE 25 mmol/L (21-32); CHLORIDE 103 mmol/L (98-107); CREATININE 0.7 mg/dL (0.6-1.3); GLUCOSE 152 mg/dL (74-106); MAGNESIUM 1.7 mg/dL (1.8-2.4); PHOSPHORUS 3.6 mg/dL (2.5-4.9); POTASSIUM 3.3 mmol/L (3.5-5.1); SODIUM SERUM 135 mmol/L (136-145); UREA NITROGEN, BLOOD 11 mg/dL (7-18)
[2018-05-23 07:43] LABS: ALBUMIN 0.8 g/dL (3.4-5.0)
[2018-05-23 08:00] VITALS: BP 116/49
--- NOTE | 2018-05-23 08:04 | NUR ---
SW called [facility] social work msw Myesha and left her a voicemail message informing her that pt. has been hospitalized again.
[2018-05-23] MEDS: FERROUS SULFATE (325 MG) 325 MG/TAB TABLET GT SCH ×3 (08:12→17:53)
[2018-05-23] MEDS: LEVOTHYROXINE SODIUM 25 MCG TABLET GT SCH (08:12)
[2018-05-23] MEDS: ASCORBIC ACID 500 MG TABLET GT SCH (08:12)
[2018-05-23] MEDS ORDERED: POTASSIUM CHLORIDE 20 MEQ POWDER PACKET GT ONE ×2 (09:00→10:30)
[2018-05-23 09:25] LABS: INR 1.22 (0.87-1.13)
[2018-05-23 09:29] LABS: PARTIAL THROMBOPLASTIN TIME > 170 SEC (23-34)
[2018-05-23] MEDS: Magnesium 1GM/D5W 100ML PREMIX 100 ML IV SCH ×2 (11:09→12:20)
[2018-05-23 11:40] LABS: INR 1.16 (0.87-1.13)
[2018-05-23] MEDS ORDERED: GLUCERNA 1.2 1,000 ML BOTTLE GT SCH (12:00)
[2018-05-23] MEDS ORDERED: FEE PK DOSING 1 MIN EA MC ONE (14:19)
[2018-05-23 16:00] VITALS: BP 123/56
[2018-05-23] MEDS: SIMVASTATIN 20 MG TABLET GT SCH (17:53)
[2018-05-23] MEDS: GLUCERNA 1.2 1,000 ML BOTTLE GT SCH (18:35)
[2018-05-23] MEDS: HEPARIN INFUSION/D5W 500 ML IV PRN (18:36)
[2018-05-23] MEDS: IV 1/2NS 1000 ML 1,000 ML IV PRN (18:37)
--- NOTE | 2018-05-23 19:13 | NUR ---
RN MS CLOSING NOTES PATIENT IN BED WITH EYES CLOSED. ALERT AND ORIENTED X0. NONVERBAL. IN STABLE CONDITION. BREATHING EVEN AND UNLABORED. ON ROOM AIR - TOLERATING WELL. NO S/S OF PAIN, NO FACIAL GRIMACING. SKIN WARM AND DRY TO TOUCH. GTF RUNNING - GLUCERNA 1.2 @ 65ML/HR - INFUSING AND TOLERATING WELL. ELVIS PICC LINE PATENT AND INTACT - CURRENTLY INFUSING HEPARIN AT 1200UNITS/HR AND 1/2 NS @ 75ML/HR. NO SIGNS OF BLEEDING. UPPER AND LOWER EXTREMITIES RIGID. HEEL PROTECTORS ON. REMAINS ON CONTACT ISOLATION. ALL OTHER NEEDS ATTENDED TO. CALL LIGHT WITHIN REACH. BED ON LOWEST LOCKED POSITION. DAUGHTER AT BEDSIDE. WILL ENDORSE TO ONCOMING RN FOR CONTINUITY OF CARE.
--- NOTE | 2018-05-23 19:30 | NUR ---
RN NOTES RECEIVED PATIENT IN BED WITH EYES OPEN. APHASIC. NO ACUTE DISTRESS NOTED. NO SIGNS OF PAIN NOTED. PICC LINE PATENT, INTACT; IVF AND HEPARIN INFUSING ORDERED. BILATERAL FOOT DRESSINGS INTACT. DAUGHTER AT BEDSIDE. 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 ON LOW BED WITH BILATERAL UPPER SIDE RAILS UP. CALL SANCHEZ WITHIN EASY REACH. WILL CONTINUE TO MONITOR.
[2018-05-23 20:00] VITALS: BP 123/53
[2018-05-23] MEDS: VANCOMYCIN 0.75 GM in IV D5W 250 ML IV SCH (22:16)
--- NOTE | 2018-05-23 23:45 | NUR ---
RN NOTES DR. ALFREDO MADE AWARE THAT PATIENT'S DAUGHTER IS ASKING FOR PROCRIT TO BE GIVEN TO PATIENT. PER DR. ALFREDO, A FILM PROJECTOR OPERATOR WOULD BE THE PROVIDER TO ORDER THE PROCRIT IF NEEDED. WILL EXPLAIN TO DAUGHTER OR ENDORSE TO DAY SHIFT.
--- NOTE | 2018-05-24 06:54 | NUR ---
RN NOTES PATIENT ASLEEP, EASILY AROUSABLE. RESPIRATIONS EVEN. NO SIGNS OF PAIN NOTED AT THIS TIME. DUE MEDS GIVEN WITH NO ASE NOTED. NO SIGNS OF BLEEDING NOTED. NEEDS ATTENDED. KEPT CLEAN, DRY, AND COMFORTABLE. TURNED AND REPOSITIONED Q 2 HOURS. SAFETY PRECAUTIONS AND COMFORT MEASURES IN PLACE. WILL GIVE REPORT TO DAY SHIFT FOR CONTINUITY OF CARE.
[2018-05-24 06:57] LABS: INR 1.15 (0.87-1.13)
[2018-05-24 06:59] LABS: CALCIUM, SERUM 8.1 mg/dL (8.5-10.1); CARBON DIOXIDE 26 mmol/L (21-32); CHLORIDE 103 mmol/L (98-107); CREATININE 0.7 mg/dL (0.6-1.3); GLUCOSE 184 mg/dL (74-106); MAGNESIUM 2.3 mg/dL (1.8-2.4); POTASSIUM 4.1 mmol/L (3.5-5.1); SODIUM SERUM 134 mmol/L (136-145); UREA NITROGEN, BLOOD 11 mg/dL (7-18)
--- NOTE | 2018-05-24 07:30 | NUR ---
RN MS OPENING NOTES RECEIVED PATIENT IN BED WITH EYES CLOSED. AROUSABLE TO TOUCH. ALERT AND ORIENTED X0. NONVERBAL. IN STABLE CONDITION. BREATHING EVEN AND UNLABORED. ON ROOM AIR - TOLERATING WELL. NO S/S OF PAIN, NO FACIAL GRIMACING. SKIN WARM AND DRY TO TOUCH. GTF RUNNING - GLUCERNA 1.2 @ 65ML/HR - INFUSING AND TOLERATING WELL. ELVIS PICC LINE PATENT AND INTACT - CURRENTLY INFUSING HEPARIN AT 1200UNITS/HR AND 1/2 NS @ 75ML/HR. NO SIGNS OF BLEEDING. UPPER AND LOWER EXTREMITIES RIGID. HEEL PROTECTORS ON. REMAINS ON CONTACT ISOLATION. ALL OTHER NEEDS ATTENDED TO. CALL LIGHT WITHIN REACH. BED ON LOWEST LOCKED POSITION. WILL CONTINUE TO MONITOR.
[2018-05-24 08:28] LABS: BASOPHILS # (AUTO) 0.1 /CMM (0.0-0.2); BASOPHILS % (AUTO) 0.7 % (0.0-2.0); EOSINOPHILS % (AUTO) 3.7 % (0.0-6.0); HEMATOCRIT 29 % (33-45); HEMOGLOBIN 9.1 g/dL (11.5-14.8); LYMPHOCYTES # (AUTO) 2.5 /CMM (0.8-4.8); LYMPHOCYTES % (AUTO) 18.5 % (20.0-44.0); MEAN CORPUSCULAR HEMOGLOBIN 26 PG (26.0-33.0); MEAN CORPUSCULAR HGB CONC 32 g/dl (31.0-36.0); MEAN CORPUSCULAR VOLUME 82 fL (82-100); MONOCYTES # (AUTO) 1.2 /CMM (0.1-1.30); MONOCYTES % (AUTO) 9.2 % (2.0-12.0); NEUTROPHILS # (AUTO) 9.2 /CMM (1.8-8.9); NEUTROPHILS % (AUTO) 67.9 % (43.0-81.0); PLATELET COUNT (AUTO) 532 /CMM (150-450); RDW COEFFICIENT OF VARIATION 19.9 (11.5-15.0); RED BLOOD CELL COUNT(AUTO) 3.51 MIL/uL (4.0-5.2); WHITE BLOOD COUNT (AUTO) 13.5 K/uL (4.3-11.0)
[2018-05-24] MEDS: ASCORBIC ACID 500 MG TABLET GT SCH (08:58)
[2018-05-24] MEDS: LEVOTHYROXINE SODIUM 25 MCG TABLET GT SCH (08:58)
[2018-05-24] MEDS: FERROUS SULFATE (325 MG) 325 MG/TAB TABLET GT SCH ×3 (08:58→18:12)
[2018-05-24 09:24] VITALS: BP 144/63
[2018-05-24] MEDS ORDERED: EPOETIN ALFA (20,000 UNIT) 20,000 UNIT/ML VIAL SQ SCH (10:00)
--- NOTE | 2018-05-24 10:00 | NUR ---
RN MS NOTES WITH DR. MCKNIGHT'S APPROVAL, PATIENT OK TO CONTINUE PROCRIT 20,000 UNITS 3 TIMES A WEEK () AND METFORMIN 500MG BID. NOTED AND CARRIED OUT THE ORDERS. PATIENT'S DAUGHTER ALSO MADE AWARE.
[2018-05-24] MEDS: METFORMIN 500 MG TABLET GT SCH ×2 (10:17→18:11)
[2018-05-24] MEDS: GLUCERNA 1.2 1,000 ML BOTTLE GT SCH (11:50)
[2018-05-24] MEDS: IV 1/2NS 1000 ML 1,000 ML IV PRN (12:57)
[2018-05-24 16:22] VITALS: BP 149/64
[2018-05-24] MEDS: SIMVASTATIN 20 MG TABLET GT SCH (18:12)
[2018-05-24] MEDS: HEPARIN INFUSION/D5W 500 ML IV PRN (18:16)
--- NOTE | 2018-05-24 18:42 | NUR ---
RN MS CLOSING NOTES PATIENT IN BED WITH EYES OPEN. ALERT AND ORIENTED X0. NONVERBAL. IN STABLE CONDITION. BREATHING EVEN AND UNLABORED. ON ROOM AIR - TOLERATING WELL O2SAT 98%. NO S/S OF PAIN, NO FACIAL GRIMACING. SKIN WARM AND DRY TO TOUCH. GTF RUNNING - GLUCERNA 1.2 @ 65ML/HR - INFUSING AND TOLERATING WELL. ELVIS PICC LINE PATENT AND INTACT - CURRENTLY INFUSING HEPARIN AT 1200UNITS/HR AND 1/2 NS @ 75ML/HR. NO SIGNS OF BLEEDING. UPPER AND LOWER EXTREMITIES RIGID. HEEL PROTECTORS ON. REMAINS ON CONTACT ISOLATION. ALL OTHER NEEDS ATTENDED TO. CALL LIGHT WITHIN REACH. BED ON LOWEST LOCKED POSITION. DAUGHTER AT BEDSIDE. WILL ENDORSE TO ONCOMING RN FOR CONTINUITY OF CARE.
[2018-05-24 20:00] VITALS: BP_SYST 110; BP_SYST 136; BP_DIAS 54; BP_DIAS 62
[2018-05-24] MEDS: VANCOMYCIN 0.75 GM in IV D5W 250 ML IV SCH (22:14)
[2018-05-25] MEDS: IV 1/2NS 1000 ML 1,000 ML IV PRN (04:35)
[2018-05-25] MEDS: GLUCERNA 1.2 1,000 ML BOTTLE GT SCH (04:35)
--- NOTE | 2018-05-25 06:12 | NUR ---
RN NOTES PATIENT ASLEEP, EASILY AROUSABLE. RESPIRATIONS EVEN. NO SIGNS OF PAIN NOTED AT THIS TIME. DUE MEDS GIVEN WITH NO ASE NOTED. NO SIGNS OF BLEEDING NOTED. NEEDS ATTENDED. KEPT CLEAN, DRY, AND COMFORTABLE. TURNED AND REPOSITIONED Q 2 HOURS. 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 SAFETY PRECAUTIONS AND COMFORT MEASURES IN PLACE. WILL GIVE REPORT TO DAY SHIFT FOR CONTINUITY OF CARE.
[2018-05-25 07:38] LABS: CALCIUM, SERUM 8.1 mg/dL (8.5-10.1); CARBON DIOXIDE 26 mmol/L (21-32); CHLORIDE 102 mmol/L (98-107); CREATININE 0.8 mg/dL (0.6-1.3); GLUCOSE 175 mg/dL (74-106); POTASSIUM 4.2 mmol/L (3.5-5.1); SODIUM SERUM 135 mmol/L (136-145); UREA NITROGEN, BLOOD 12 mg/dL (7-18)
[2018-05-25 07:41] LABS: INR 1.13 (0.87-1.13)
--- NOTE | 2018-05-25 07:43 | NUR ---
RN NOTES RECEIVED PATIENT IN BED WITH EYES CLOSED. APHASIC. NO ACUTE DISTRESS NOTED. NO SIGNS OF PAIN NOTED. PICC LINE PATENT, INTACT; IVF AND HEPARIN INFUSING ORDERED. WAITING FOR APTT, PT AND INR RESULT. BILATERAL FOOT DRESSINGS INTACT. 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 ON LOW BED WITH BILATERAL UPPER SIDE RAILS UP. CALL SANCHEZ WITHIN EASY REACH. WILL CONTINUE TO MONITOR.
[2018-05-25 08:00] VITALS: BP 129/55
[2018-05-25] MEDS ORDERED: PROSOURCE / PROSTAT (PYXIS) 30 ML UDC GT SCH (09:00)
[2018-05-25] MEDS ORDERED: RIVAROXABAN 15 MG TABLET PO SCH (09:00)
[2018-05-25] MEDS: FERROUS SULFATE (325 MG) 325 MG/TAB TABLET GT SCH (09:14)
[2018-05-25] MEDS: METFORMIN 500 MG TABLET GT SCH (09:14)
[2018-05-25] MEDS: ASCORBIC ACID 500 MG TABLET GT SCH (09:14)
[2018-05-25] MEDS: LEVOTHYROXINE SODIUM 25 MCG TABLET GT SCH (09:14)
--- NOTE | 2018-05-25 09:30 | NUR ---
RN NOTES SPOKE WITH DAUGHTER, RE: WOUND DRESSING, PER DAUGHTER, "DO NOT TOUCH THE WOUND DRESSINGS, I WILL CHANGE IT AT HOME". EXPLAINED RISKS AND BENEFITS. INFORMED DAUGHTER, PHOTOS MUST BE TAKEN PRIOR TO DISCHARGE, BUT PER DAUGHTER "NO, I DONT WANT ANY PICTURE, THEY ALREADY TOOK PICTURES, I WILL TAKE RESPONSIBILITY FOR IT." DAUGHTER ADELSO, REQUESTED FOR THE PICC LINE DRESSING TO BE CHANGED. PICC LINE DRESSING CHANGED VIA STERILE TECHNIQUE. OLD DRESSING NOTED TO BE WET. DAUGHTER MADE AWARE.
--- NOTE | 2018-05-25 09:45 | NUR ---
RN NOTES SKIN CARE AND AM CARE RENDERED, PATIENT HAD A BM X1, PERICARE RENDERED. NEEDS ATTENDED AND MET, PATIENT TURNED AND REPOSITIONED. KEPT COMFORTABLE.
--- NOTE | 2018-05-25 11:20 | NUR ---
RN NOTES PER TIMBER TREATMENT PLANT OPERATOR KAMRYN, CHECKED THE PATIENT AND PATIENT WAS CLEAN, TIMBER TREATMENT PLANT OPERATOR ASSISTED PATIENT WITH CHANGING CLOTHES. DAUGHTER AT BEDSIDE.
--- NOTE | 2018-05-25 12:05 | NUR ---
RN NOTES PATIENT OPENS EYES, NON-VERBAL, PATIENT'S DAUGHTER AWARE OF DISCHARGE INSTRUCTIONS, NEW MEDICATION AND MEDICATIONS TO BE CONTINUED AT HOME. STILL REFUSING PHOTOS, REFUSING WOUND TREATMENT OR DRESSING CHANGE. EXPLAINED RISKS AND BENEFITS OF TREATMENT, STILL REFUSED. PATIENT UNABLE TO VERBALIZED UNDERSTANDING OF DISCHARGE INSTRUCTIONS. EXIT CARE PROVIDED AND SIGNED OFF BY 2 NURSES. PRESCRIPTION GIVEN. BELONGINGS RECONCILED, NO BELONGINGS BROUGHT IN. PICC LINE PATENT AND INTACT, COVERED PORTS FOR INFECTION CONTROL. FLOORING MECHANIC CAME, REPORT AND PAPERWORKS GIVEN. VITALS STABLE. PATIENT LEFT VIA AMBULANCE ACCOMPANIED BY 2 FLOORING MECHANIC, TRANSFERRED TO HOME.
[2018-05-28] MEDS ORDERED: EPOETIN ALFA (20,000 UNIT) 20,000 UNIT/ML VIAL SQ SCH (15:00)
== END 2018-05-25 12:30 | disposition home health service (06) | DRG 314 ==
LOC: ER 13:53 → MED 17:21
PROVIDERS: ADMIT Internal Medicine; ATTEND Internal Medicine
DX: T82.868A Thrombosis due to vascular prosthetic devices, implants and grafts, initial encounter (principal); G93.40 Encephalopathy, unspecified; I82.622 Acute embolism and thrombosis of deep veins of left upper extremity; M86.9 Osteomyelitis, unspecified; E03.9 Hypothyroidism, unspecified; E78.5 Hyperlipidemia, unspecified; Y83.9 Surgical procedure, unspecified as the cause of abnormal reaction of the patient, or of later complication, without mention of misadventure at the time of the procedure; Y92.89 Other specified places as the place of occurrence of the external cause; Z86.73 Personal history of transient ischemic attack (TIA), and cerebral infarction without residual deficits; E11.9 Type 2 diabetes mellitus without complications; R13.10 Dysphagia, unspecified; Z93.1 Gastrostomy status; D72.829 Elevated white blood cell count, unspecified; E61.1 Iron deficiency; D47.3 Essential (hemorrhagic) thrombocythemia; F03.90 Unspecified dementia, unspecified severity, without behavioral disturbance, psychotic disturbance, mood disturbance, and anxiety; D64.9 Anemia, unspecified; Z96.659 Presence of unspecified artificial knee joint; Z96.649 Presence of unspecified artificial hip joint; I10 Essential (primary) hypertension; E87.6 Hypokalemia; Z88.2 Allergy status to sulfonamides; L89.90 Pressure ulcer of unspecified site, unspecified stage
CPT/HCPCS: 36415; 36569; 80048-TC; 80053-TC; 80061-TC; 80202-TC; 82962-TC; 83735-TC; 84100-TC; 85025-TC; 85610-TC; 85730-TC; 87081-TC; 93971-TC; A4606; A6253; A6402; A6403; C1751; J0885; J1642; J1644; J3370; J3475; J3490; J7060; Z7610

== ENCOUNTER 2018-06-22 15:11 | Inpatient (IN) | payer MEDICARE, OTHER ==
[~2018-06-22] VITALS: Ht 162.6 cm; Wt 49.0 kg
[~2018-06-22 15:11] MED LIST changes: -EPOE1VIA12 IJ; +EPOE1VIA12 SQ; +NUT.237L28 GT; -NUT.237L45 GT
--- NOTE | 2018-06-22 15:15 | NUR ---
PT TO ER BED 12. PER REPORT, HERE FOR LOW HEMOGLOBIN 6.7. AND DAUGHTER WANTS BLOOD TRASFUSION. PT GOWNED AND PLACED ON MONITOR. STABLE VITALS. AWAITING MD MILIAN.
--- NOTE | 2018-06-22 15:16 | NUR ---
PT'S DAUGHTER AT BEDSIDE. WONT ALLOW FOR SKIN CHECK.
--- NOTE | 2018-06-22 15:17 | NUR ---
DR RENO AT BEDSIDE FOR EVAL.
[2018-06-22 15:35] LABS: BASOPHILS # (AUTO) 0.2 /CMM (0.0-0.2); BASOPHILS % (AUTO) 1.2 % (0.0-2.0); EOSINOPHILS % (AUTO) 1.4 % (0.0-6.0); HEMATOCRIT 24 % (33-45); HEMOGLOBIN 7.4 g/dL (11.5-14.8); LYMPHOCYTES # (AUTO) 2.7 /CMM (0.8-4.8); LYMPHOCYTES % (AUTO) 16.3 % (20.0-44.0); MEAN CORPUSCULAR HEMOGLOBIN 24 PG (26.0-33.0); MEAN CORPUSCULAR HGB CONC 30 g/dl (31.0-36.0); MEAN CORPUSCULAR VOLUME 78 fL (82-100); MONOCYTES # (AUTO) 1.5 /CMM (0.1-1.30); MONOCYTES % (AUTO) 9.2 % (2.0-12.0); NEUTROPHILS # (AUTO) 11.7 /CMM (1.8-8.9); NEUTROPHILS % (AUTO) 71.9 % (43.0-81.0); PLATELET COUNT (AUTO) 677 /CMM (150-450); RDW COEFFICIENT OF VARIATION 18.6 (11.5-15.0); RED BLOOD CELL COUNT(AUTO) 3.11 MIL/uL (4.0-5.2); WHITE BLOOD COUNT (AUTO) 16.3 K/uL (4.3-11.0)
[2018-06-22 15:45] LABS: CALCIUM, SERUM 8.8 mg/dL (8.5-10.1); CARBON DIOXIDE 28 mmol/L (21-32); CHLORIDE 101 mmol/L (98-107); CREATININE 0.6 mg/dL (0.6-1.3); GLUCOSE 168 mg/dL (74-106); POTASSIUM 3.4 mmol/L (3.5-5.1); SODIUM SERUM 134 mmol/L (136-145); UREA NITROGEN, BLOOD 13 mg/dL (7-18)
[2018-06-22 15:57] LABS: ALANINE AMINOTRANSFERASE 28 U/L (12-78); ALKALINE PHOSPHATASE 157 U/L (46-116); ASPARTATE AMINOTRANSFERASE 29 U/L (15-37); BILIRUBIN,DIRECT 0.1 mg/dL (0.0-0.2); BILIRUBIN,TOTAL 0.2 mg/dL (0.2-1.0); TOTAL PROTEIN, SERUM 5.2 g/dL (6.4-8.2)
[2018-06-22 15:59] LABS: ALBUMIN 0.8 g/dL (3.4-5.0)
[2018-06-22] MEDS ORDERED: ERTA1VIA2 IV (16:33)
[2018-06-22] MEDS ORDERED: ZINC220C8 GT (16:33)
[2018-06-22] MEDS ORDERED: BETH10TA8 GT (16:33)
[2018-06-22] MEDS ORDERED: VITA100014 GT (16:33)
[2018-06-22] MEDS ORDERED: ALBU18HF2 IH (16:33)
[2018-06-22] MEDS ORDERED: MULT-24 GT (16:33)
[2018-06-22] MEDS ORDERED: RIVA10TA GT (16:33)
[2018-06-22] MEDS ORDERED: ASCO500T9 GT (16:33)
[2018-06-22] MEDS ORDERED: GENTAMICIN SULFATE TD (16:37)
--- NOTE | 2018-06-22 16:38 | NUR ---
ASSIGNED TO TELE #: [id number], DX: ANEMIA, AND ACCEPTING: RYAN RENTERIA
--- NOTE | 2018-06-22 16:40 | NUR ---
CALLED [facility] FOR PANEL CALL AND RYAN RENTERIA WAS PAGED
--- NOTE | 2018-06-22 16:51 | NUR ---
CORRECTION: PT IS NOW ASSIGNED TO TELE RM#: [id number], PER NURSING SURGICAL TECHNICIAN
--- NOTE | 2018-06-22 17:09 | NUR ---
TELE1/RN REPORT FROM ER REPORT RECEIVED FROM ER NURSE CHRISS FOR PT TO BE ADMITTED FOR ANEMIA UNDER THE CARE ON ENVELOPE STUFFER Herbie RENTERIA AWAITING FOR PT'S ARRIVAL.
--- NOTE | 2018-06-22 17:13 | NUR ---
REPORT GIVEN TO TAMMY. PT AWAITING TRANSFER TO FLOOR.
--- NOTE | 2018-06-22 17:22 | NUR ---
TELE1/TRANSPORTATION SERVICES REPRESENTATIVE TO TELE1 PT ARRIVED VIA GURNEY ACCOMPANIED BY ER VENEER TAPING MACHINE OPERATOR AND PT'S DAUGHTER. PT PLACED ON AIR BED. TELE BOX PLACED, SINUS TACHY, HR 114. ADMITTED WITH PICC LINE IN PLACED, 2 PORTS POSITIVE OF BLOOD RETURN, NO S/S OF INFECTION. GT INTACT PATENT, FLUSHED, CLAMP. WOUND DRESSING INTACT, PT'S DAUGHTER REFUSED TO HAVE DRESSING REMOVED TO HAVE WOUND ASSESSED AND PHOTO TAKEN. AWAITING FOR ADMITTING ORDERS. CL WITHIN REACHED AND SAFETY MAINTAINED. Addendum: 06/22/18 at 1852 by STALIN TONG RN ADDENDUM: PT NOTED WITH NO ACTIVE BLEEDING.
[2018-06-22 18:00] VITALS: BP 126/52
[2018-06-22] MEDS ORDERED: IV NS 0.9% 1,000 ML IV PRN (19:42)
--- NOTE | 2018-06-22 19:45 | NUR ---
TELE/RN NOTES RECEIVED PT. LYING IN BED. PT. IS NON-VERBAL. BREATHING EVEN AND UNLABORED ON ROOM AIR. NO SOB, RESPIRATORY DISTRESS OR S/S OF PAIN NOTED AT THIS TIME. PT. WITH EXTERNAL WAIST FITTER PRESENT AND INTACT CURRENT RHYTHM = SINUS TACHYCARDIA HR 105. PT. WITH LEFT UPPER ARM PICC LINE PRESENT, PATENT AND INTACT. PT. WITH G-TUBE PRESENT, PATENT AND INTACT. PER DAYSHIFT NURSE PT. DAUGHTER REFUSING WOUNDS TO BE ASSESSED OR WOUND CARE TO BE PROVIDED. PT. AWAITING BLOOD TRANSFUSION OF 1 UNIT PRBC. NO S/S OF BLEEDING NOTED AT THIS TIME. PER PT. DAUGHTER PT. CAN BE TURNED AND REPOSITIONED Q2H. BED LOCKED AND IN LOWEST POSITION, SIDE RAILS UP X3, BED ALARM ON, WILL CONTINUE TO MONITOR.
[2018-06-22 20:00] VITALS: BP 109/37
[2018-06-22] MEDS ORDERED: MAGNESIUM HYDROXIDE 30 ML UDC PO PRN (20:00)
[2018-06-22] MEDS ORDERED: ACETAMINOPHEN 325 MG TABLET PO PRN (20:00)
[2018-06-22] MEDS ORDERED: ZOLPIDEM TARTRATE 5 MG TABLET PO PRN (20:00)
[2018-06-22] MEDS ORDERED: Z GUARD REMEDY 2 OZ OINT TP PRN ×2 (20:00)
[2018-06-22] MEDS ORDERED: ONDANSETRON HCL/PF 4 MG/2 ML VIAL IVP PRN (20:00)
[2018-06-22] MEDS ORDERED: HYDROCODONE/APAP 5/325MG 1 EACH TABLET PO PRN (20:00)
[2018-06-22] MEDS ORDERED: MAG HYDROX/AL HYDROX/SIMETH 30 ML UDC PO PRN (20:00)
[2018-06-22] MEDS ORDERED: FEE PK DOSING 1 MIN EA MC ONE (20:11)
[2018-06-22] MEDS ORDERED: ZOLPIDEM TARTRATE 5 MG TABLET GT PRN (20:24)
[2018-06-22] MEDS ORDERED: HYDROCODONE/APAP 5/325MG 1 EACH TABLET GT PRN (20:27)
[2018-06-22] MEDS ORDERED: MAG HYDROX/AL HYDROX/SIMETH 30 ML UDC GT PRN (20:27)
[2018-06-22] MEDS ORDERED: MAGNESIUM HYDROXIDE 30 ML UDC GT PRN (20:28)
[2018-06-22] MEDS ORDERED: ACETAMINOPHEN 650 MG/20.3 ML UDC PO PRN (20:30)
[2018-06-22] MEDS ORDERED: APP TD SCH (20:30)
[2018-06-22] MEDS ORDERED: IPRATROPIUM NEB FS 0.5 MG/2.5 ML AMPUL.NEB NEB PRN (20:30)
[2018-06-22] MEDS ORDERED: ACETAMINOPHEN 650 MG/20.3 ML UDC GT PRN (20:30)
[2018-06-22] MEDS ORDERED: ALBUTEROL FS 2.5 MG/3 ML VIAL.NEB NEB PRN (20:30)
[2018-06-22] MEDS ORDERED: COLLAGENASE 15 GM TUBE TP SCH (20:30)
[2018-06-22] MEDS: METOPROLOL TARTRATE 50 MG TABLET GT SCH (21:00)
[2018-06-22] MEDS: MEROPENEM 500 MG in IV NS 0.9% 50 ML IV SCH (21:19)
[2018-06-22] MEDS: VANCOMYCIN 0.75 GM in IV D5W 250 ML IV SCH (22:29)
[2018-06-22] MEDS: GLUCERNA 1.2 1,000 ML BOTTLE GT SCH (23:32)
[2018-06-23] VITALS (12 sets, daily range): BP systolic 94–119; BP diastolic 36–58
--- NOTE | 2018-06-23 00:22 | NUR ---
TELE/RN NOTES PT. VITAL SIGNS STABLE. NO S/S OF BLEEDING NOTED AT THIS TIME. BEGAN BLOOD TRANSFUSION OF 1 UNIT PRBC ORDERED. WILL CONTINUE TO MONITOR.
--- NOTE | 2018-06-23 02:57 | NUR ---
TELE/RN NOTES BLOOD TRANSFUSION OF 1 UNIT PRBC COMPLETED. NO ADVERSE REACTIONS NOTED. PT. VITAL SIGNS STABLE. PT. TOLERATED TRANSFUSION WELL. WILL CONTINUE TO MONITOR.
--- NOTE | 2018-06-23 06:36 | NUR ---
TELE/RN NOTES PT. IS LYING IN BED RESTING. PT. IS NON-VERBAL AND IS RESPONSIVE TO TOUCH. BREATHING EVEN AND UNLABORED ON 4 LPM O2 VIA SIMPLE MASK. NO SOB, RESPIRATORY DISTRESS OR S/S OF PAIN NOTED AT THIS TIME. PT. WITH EXTERNAL FURNITURE UPHOLSTERER PRESENT AND INTACT CURRENT RHYTHM = SINUS RHYTHM HR 91. PT. WITH LEFT UPPER ARM PICC LINE PRESENT, PATENT AND INTACT ADMINISTERING TO PT. NS @ 75 ML/HR. PT. WITH G-TUBE PRESENT, PATENT AND INTACT ADMINISTERING TO PT. GLUCERNA @ 50 ML/HR. PT. TOLERATING TUBE FEEDING WELL. NO RESIDUAL NOTED. PT. DAUGHTER CONTINUES TO REFUSE PT. WOUNDS TO BE ASSESSED OR WOUND CARE TO BE PROVIDED, WILL ENDORSE TO DAYSHIFT NURSE. ALL PT. NEEDS MET. PT. OFFLOADED, TURNED AND REPOSITIONED Q2H AND NEEDED. BED LOCKED AND IN LOWEST POSITION, SIDE RAILS UP X3, BED ALARM ON, WILL ENDORSE TO DAYSHIFT NURSE FOR CONTINUITY OF CARE.
[2018-06-23 06:57] LABS: BASOPHILS # (AUTO) 0.1 /CMM (0.0-0.2); BASOPHILS % (AUTO) 0.4 % (0.0-2.0); EOSINOPHILS % (AUTO) 2.1 % (0.0-6.0); HEMATOCRIT 26 % (33-45); HEMOGLOBIN 8.1 g/dL (11.5-14.8); LYMPHOCYTES # (AUTO) 2.2 /CMM (0.8-4.8); LYMPHOCYTES % (AUTO) 14.7 % (20.0-44.0); MEAN CORPUSCULAR HEMOGLOBIN 26 PG (26.0-33.0); MEAN CORPUSCULAR HGB CONC 31 g/dl (31.0-36.0); MEAN CORPUSCULAR VOLUME 82 fL (82-100); MONOCYTES # (AUTO) 1.2 /CMM (0.1-1.30); MONOCYTES % (AUTO) 8.3 % (2.0-12.0); NEUTROPHILS % (AUTO) 74.5 % (43.0-81.0); PLATELET COUNT (AUTO) 543 /CMM (150-450); RDW COEFFICIENT OF VARIATION 19.2 (11.5-15.0); RED BLOOD CELL COUNT(AUTO) 3.17 MIL/uL (4.0-5.2); WHITE BLOOD COUNT (AUTO) 14.7 K/uL (4.3-11.0)
[2018-06-23 07:24] LABS: CALCIUM, SERUM 8.6 mg/dL (8.5-10.1); CARBON DIOXIDE 28 mmol/L (21-32); CHLORIDE 104 mmol/L (98-107); CREATININE 0.6 mg/dL (0.6-1.3); GLUCOSE 152 mg/dL (74-106); MAGNESIUM 1.9 mg/dL (1.8-2.4); POTASSIUM 3.3 mmol/L (3.5-5.1); SODIUM SERUM 138 mmol/L (136-145); UREA NITROGEN, BLOOD 12 mg/dL (7-18)
[2018-06-23 07:28] LABS: IRON, SERUM 14 ug/dl (50-175); TOTAL IRON BINDING CAPACITY 94 ug/dl (250-450)
[2018-06-23 07:30] LABS: CHOLESTEROL 62 mg/dL (<200); HDL CHOLESTEROL 27 mg/dL (40-60); LDL 28 mg/dL (0-99); TRIGLYCERIDES 86 mg/dL (30-150)
[2018-06-23 09:40] LABS: RETICULOCYTE COUNT 3.3 % (0.6-2.5)
[2018-06-23 10:00] LABS: THYROID STIMULATING HORMONE 5.747 uIU/mL (0.358-3.74); URIC ACID 4.3 mg/dL (2.6-7.2)
[2018-06-23] MEDS: MEROPENEM 500 MG in IV NS 0.9% 50 ML IV SCH ×2 (10:09→21:43)
[2018-06-23] MEDS: PANTOPRAZOLE 40 MG VIAL IV SCH (10:16)
[2018-06-23] MEDS: ZINC SULFATE 220 MG CAPSULE GT SCH (10:16)
[2018-06-23] MEDS: BETHANECHOL CHLORIDE (10 MG) 10 MG TABLET GT SCH ×3 (10:17→16:24)
[2018-06-23] MEDS: MULTIVITAMINS,THERAGRAN 1 UDTAB TABLET GT SCH (10:21)
[2018-06-23] MEDS: ASCORBIC ACID 500 MG TABLET GT SCH (10:21)
[2018-06-23] MEDS: FERROUS SULFATE (325 MG) 325 MG/TAB TABLET GT SCH ×3 (10:21→16:24)
[2018-06-23] MEDS: METFORMIN 500 MG TABLET GT SCH ×2 (10:22→16:24)
[2018-06-23] MEDS: LEVOTHYROXINE SODIUM 25 MCG TABLET GT SCH (10:22)
[2018-06-23] MEDS: METOPROLOL TARTRATE 50 MG TABLET GT SCH ×2 (10:23→21:00)
[2018-06-23] MEDS: LOSARTAN POTASSIUM 50 MG TABLET GT SCH (10:23)
[2018-06-23] MEDS: POTASSIUM CHLORIDE 20 MEQ POWDER PACKET GT SCH ×2 (11:50→12:31)
[2018-06-23] MEDS: VITAMIN A 10,000 UNIT CAPSULE GT SCH (11:55)
[2018-06-23] MEDS: RIVAROXABAN 15 MG TABLET GT SCH (11:58)
[2018-06-23] MEDS: PROSOURCE / PROSTAT (PYXIS) 30 ML UDC GT SCH (12:34)
[2018-06-23] MEDS: VANCOMYCIN 0.75 GM in IV D5W 250 ML IV SCH (14:45)
[2018-06-23 15:50] LABS: ABG BASE EXCESS 0.1 mmol/L; ABG OXYGEN SATURATION 96.8 % (92.0-98.5); ABG PCO2 40.2 mmHg (35.0-45.0); ABG PH 7.407 (7.350-7.450); ABG PO2 104.1 mmHg (75.0-100.0); AaDO2 163.8 mmHg; COHb 0.3 % (0.5-1.5); MetHb 0.8 % (0.0-1.5); O2Hb 95.7 % (94.0-97.0); SITE, ABG Right Radial; VENT MODE, BG SIMPLE MASK
[2018-06-23] MEDS ORDERED: ACETAMINOPHEN 650 MG/SUPP.RECT RC PRN (17:30)
[2018-06-23] MEDS ORDERED: FUROSEMIDE 20 MG/2 ML VIAL IV ONE (17:30)
[2018-06-23] MEDS ORDERED: [UNRECOGNIZED DRUG - OTHER] IV SCH (18:30)
[2018-06-23] MEDS ORDERED: DEXTROSE ISO OSM IV SCH (18:30)
[2018-06-23] MEDS ORDERED: VANCOMYCIN IV SCH (18:30)
[2018-06-23] MEDS ORDERED: DEXTROSE 50%-WATER 50 ML DISP.SYRIN IV PRN (18:30)
--- NOTE | 2018-06-23 19:00 | NUR ---
RN NOTE PT'S DAUGHTER CAME TO VISIT AND TO DO WOUND CARE FOR HER MOTHER, SHE ALLOWED TO TAKE IMAGES PART OF PT'S WOUNDS, THE REST OF WOUND DRESSINGS SHE DID NOT WANT TO TOUCH NOR OPEN TO CHECK THE SKIN. ALSO DAUGHTER BELIEFS THAT HER MOTHER, THE PT'S WOUND ARE IS HEALING AND IS DOING WELL, AND DOES NOT WANT HOSPITAL WOUND CONSULT WHATSOEVER, DOES NOT WANT TO NURSES TO CHANGE DRESSINGS EITHER.
[2018-06-23] MEDS: LACTOBACILLUS RHAMNOSUS GG 1 EACH CAP.SPRINK GT SCH (19:07)
[2018-06-23] MEDS: SIMVASTATIN 20 MG TABLET GT SCH (19:07)
--- NOTE | 2018-06-23 20:30 | NUR ---
RN MS INITIAL NOTES RECEIVED PT. LYING IN BED. PT. IS NON-VERBAL. BREATH EVEN ON MASK 4LPM. NO SOB, RESPIRATORY DISTRESS OR S/S OF PAIN NOTED AT THIS TIME. PT. PT. WITH LEFT UPPER ARM PICC LINE PRESENT, PATENT AND INTACT. PT. WITH G-TUBE PRESENT, PATENT AND INTACT. PER DAYSHIFT NURSE , WOUND TX TO BE DONE QS AND PRN W/REPOSITIONING.
[2018-06-23] MEDS: BLOOD SUGAR DIAGNOSTIC 1 EACH STRIP IN SCH (21:45)
--- NOTE | 2018-06-23 22:45 | NUR ---
SALESPERSON PARTS NOTE PT TRANSFERED IN STABLE CONDITION, VS WNR, NO SIGN OF DISTRESS OR PAIN, CLEAN AND DRY PRIOR TO TRANSFER, REPORT GIVEN TO RN BOBBY ON 3RD FLOOR, WITH ALL PERSONAL BELONGINGS TRANSFERED WITH PT. DAUGHTER NOTIFIED AND OKAY WITH THE TRANSFER.
--- NOTE | 2018-06-23 23:00 | NUR ---
RN INITIAL NOTES: RECEIVED PT TRANSFERRED FROM MS1, PT NOW MS STATUS, REPORT RECEIVED FROM REBECA EDUARDO. PT OBTUNDED, ON 6L MASK, RESPIRATION EVEN AND UNLABORED, PLACED ON MRSA ISOLATION , SPECIMEN SENT AWAITING FOR RESULT, PT ON KCI MATTRESS, LEFT LEG STUMP OFFLOADED, PER SUBCONTRACT ADMINISTRATOR DRESSING WAS PERFORMED AT 2200 PRIOR TO PT TRANSFER TO THE UNIT. PT HAS GTUBE IN PLACED, ADMINISTER NEW BAG OF GLUCERNA 1.2 AT 50ML/HR. ABDOMEN SOFT TO TOUCH WITH HYPOACTIVE BOWEL SOUND NOTED UPON AUSCULTATION OF ABDOMEN. PT HAS LEFT UPPER ARM PICC LINE WITH DOUBLE LUMEN CATHETER, RED PORT UNABLE TO FLUSH, BUT THE OTHER PORT PATENT AND FLUSHING WELL, PER REPORT PICC DRESSING WAS CHANGED 06/23/18 AT 0100AM. ALL BELONGING RECEIVED, INCLUDED PT'S MEDICATION FROM PHARMACY, PLACED ON PT'S CASSETTE, ALSO PT'S WOUND MEDICATION FROM HOME BEING USED BY DAUGHTER FOR DOING DRESSING CHANGE WAS PLACED IN A BAG, PLACED AT BED SIDE, BLUE BOOTS IN USED, PER REPORT THAT DAUGHTER WAS THE ONLY ONE TO CHANGE WOUND DRESSING SHE IS VERY PARTICULAR, AND DOESNT WANT ANYBODY TO TOUCH THE WOUND, NETWORK OPERATIONS MANAGER MADE AWARE OF THIS. SAFETY PRECAUTIONS FOR FALL INITIATED, CALL LIGHT IN REACH, LEFT LEG STUMP OFFLOADED, AND RIGHT LEG OFFLOADED. VS TAKEN AND RECORDED. WILL CONTINUE MONITORING PT.
[2018-06-23] MEDS: GLUCERNA 1.2 1,000 ML BOTTLE GT SCH (23:25)
--- NOTE | 2018-06-23 23:30 | NUR ---
RN NOTES: PT'S DAUGHTER REFUSING TO HAVE PT. WOUNDS ASSESSED AND DRESSINGS TO BE CHANGED. PT DAUGHTER STATED LEAVE THE WOUND IS, SHE WILL DO THE DRESSING CHANGE IN AM 06/24/18 WHEN SHE COMES TO VISIT, EDUCATION PROVIDED TO THE PT, TURN AND REPOSITION PT Q2 AND NEEDED, 2TOWELS PLACED INSIDE PILLOWCASE AND THAT ONE PLACED IN BETWEEN PT'S LEG AND USED TO ELEVATE LEG AND STUMP, ALSO PER DAUGHTER TO ONLY TURN PT ON RIGHT AND LEFT SIDE ONLY. ALL RELAYED TO LUMBER TRIMMER AND
[2018-06-24 02:15] VITALS: BP 125/55
[2018-06-24 06:15] LABS: OCCULT BLOOD STOOL NEGATIVE (NEGATIVE)
[2018-06-24] MEDS: BLOOD SUGAR DIAGNOSTIC 1 EACH STRIP IN SCH ×3 (06:15→17:30)
[2018-06-24] MEDS: INSULIN REGULAR, HUMAN 100 UNIT/ML 3 ML VIAL SQ PRN ×2 (06:15→12:28)
--- NOTE | 2018-06-24 06:15 | NUR ---
accu check 126: bs 126, no insulin given per sliding scale, pt on gtube feeding
--- NOTE | 2018-06-24 07:00 | NUR ---
rn closing notes: pt in bed, remains on 6l mask, respiration even and unlabored, remains obtunded, open eyes, no facial grimace noted,appears calm and comfortable, picc line dressing remains c/d/i, red port remains unable to flush, other port patent and flushing well.gtube feeding remains infusing glucerna 1.2 at 50ml/hr. wound dressing remains in placed. ble offloaded and towel inside pillow case remains in between legs. left leg stump remains offloaded on pillow. vs remains stable, suction set up secured, stool sent for OB, safety precautions for fall remains engaged, call light in reach, will endorse to day rn for delia.
--- NOTE | 2018-06-24 07:40 | NUR ---
MS RN OPENING NOTES RECEIVED PT LAYING IN BED W/ HOB KEPT ELEVATED. PT IS NONVERBAL, BUT EASILY AROUSABLE. RESPIRATIONS ARE EVEN AND UNLABORED, NOT IN ANY ACUTE DISTRESS NOTED. NO FACIAL GRIMACING NOTED, NO N/V. PICC LINE DOUBLE LUMEN TO ELVIS INTACT, DRESSING KEPT CLEAN AND DRY. SAFETY MEASURES ARE IN PLACE. WILL REPOSITION PT PER PROTOCOL. WILL CONTINUE TO MONITOR THROUGHOUT SHIFT.
[2018-06-24 08:00] VITALS: BP_SYST 116; BP_DIAS 74; BP_DIAS 94
[2018-06-24 08:57] LABS: BASOPHILS # (AUTO) 0.1 /CMM (0.0-0.2); BASOPHILS % (AUTO) 0.4 % (0.0-2.0); HEMATOCRIT 29 % (33-45); HEMOGLOBIN 8.9 g/dL (11.5-14.8); LYMPHOCYTES # (AUTO) 2.1 /CMM (0.8-4.8); LYMPHOCYTES % (AUTO) 15.5 % (20.0-44.0); MEAN CORPUSCULAR HEMOGLOBIN 26 PG (26.0-33.0); MEAN CORPUSCULAR HGB CONC 31 g/dl (31.0-36.0); MEAN CORPUSCULAR VOLUME 83 fL (82-100); MONOCYTES # (AUTO) 0.9 /CMM (0.1-1.30); MONOCYTES % (AUTO) 6.4 % (2.0-12.0); NEUTROPHILS # (AUTO) 10.2 /CMM (1.8-8.9); NEUTROPHILS % (AUTO) 74.7 % (43.0-81.0); PLATELET COUNT (AUTO) 583 /CMM (150-450); RDW COEFFICIENT OF VARIATION 19.5 (11.5-15.0); WHITE BLOOD COUNT (AUTO) 13.7 K/uL (4.3-11.0)
[2018-06-24 09:07] LABS: CALCIUM, SERUM 8.7 mg/dL (8.5-10.1); CARBON DIOXIDE 26 mmol/L (21-32); CHLORIDE 106 mmol/L (98-107); CREATININE 0.7 mg/dL (0.6-1.3); GLUCOSE 164 mg/dL (74-106); POTASSIUM 4.1 mmol/L (3.5-5.1); SODIUM SERUM 140 mmol/L (136-145); UREA NITROGEN, BLOOD 15 mg/dL (7-18)
[2018-06-24] MEDS: MEROPENEM 500 MG in IV NS 0.9% 50 ML IV SCH (10:13)
[2018-06-24] MEDS: ASCORBIC ACID 500 MG TABLET GT SCH (10:13)
[2018-06-24] MEDS: ZINC SULFATE 220 MG CAPSULE GT SCH (10:13)
[2018-06-24] MEDS: METFORMIN 500 MG TABLET GT SCH ×2 (10:13→17:00)
[2018-06-24] MEDS: LACTOBACILLUS RHAMNOSUS GG 1 EACH CAP.SPRINK GT SCH ×2 (10:13→17:00)
[2018-06-24] MEDS: PANTOPRAZOLE 40 MG VIAL IV SCH (10:13)
[2018-06-24] MEDS: LEVOTHYROXINE SODIUM 25 MCG TABLET GT SCH (10:13)
[2018-06-24 10:14] VITALS: BP 116/74
[2018-06-24] MEDS: LOSARTAN POTASSIUM 50 MG TABLET GT SCH (10:14)
[2018-06-24] MEDS: METOPROLOL TARTRATE 50 MG TABLET GT SCH (10:14)
[2018-06-24] MEDS: VITAMIN A 10,000 UNIT CAPSULE GT SCH (10:15)
[2018-06-24] MEDS: BETHANECHOL CHLORIDE (10 MG) 10 MG TABLET GT SCH ×3 (10:15→17:00)
[2018-06-24] MEDS: PROSOURCE / PROSTAT (PYXIS) 30 ML UDC GT SCH (10:16)
[2018-06-24] MEDS: MULTIVITAMINS,THERAGRAN 1 UDTAB TABLET GT SCH (10:25)
[2018-06-24] MEDS: RIVAROXABAN 15 MG TABLET GT SCH (10:25)
[2018-06-24] MEDS: FERROUS SULFATE UDC 300 MG/5 ML UDC GT SCH ×2 (13:22→17:00)
[2018-06-24] MEDS ORDERED: VANCOMYCIN 0.75 GM in IV D5W 250 ML IV SCH (15:00)
--- NOTE | 2018-06-24 15:30 | NUR ---
MS RN NOTES DTR WILEY AT BEDSIDE. ASKED DTR IF WE CAN TAKE PHOTOS OF WOUNDS. PER DTR, "NO NEED TO. I WILL DO THE DRESSING ANYWAYS." INFORMED HER THAT IT IS A PART OF OUR PROTOCOL TO TAKE PHOTOS TO SEE IF THERE IS ANY IMPROVEMENT, SIGNIFICANT SKIN ISSUES. DTR STILL REFUSED.
[2018-06-24] MEDS: SIMVASTATIN 20 MG TABLET GT SCH (18:00)
--- NOTE | 2018-06-24 18:03 | NUR ---
MS RN NOTES ABOUT TO ADMINISTER MEDICATIONS, DTR REFUSED AND STATED "NO NEED TO GIVE HER ANYTHING. ILL GIVE HER MEDICATION WHEN SHE GETS HOME." EXPLAINED THE NEED TO CHECK BS. DTR ASKED WHAT WAS PT'S BS AT NOON AND IT RESULTED 131. PER DTR, "THAT'S GOOD. NO NEED TO CHECK BS. ILL CHECK AT HOME." NO S/SX OF HYPO/HYERPGLYCEMIA NOTED. WILL CONTINUE TO MONITOR THROUGHOUT SHIFT.
--- NOTE | 2018-06-24 18:53 | NUR ---
MS ADZ WORKER NOTE PT DISCHARGED TO HOME VIA AMBULANCE ACCOMPANIED BY TWO EMT PERSONNEL IN STABLE CONDITION. EXPLAINED DISCHARGE PAPERWORK TO DTR WHO IS AT BEDSIDE WITH VERBAL AND WRITTEN AGREEMENT. PT REMAINS NONVERBAL W/ SPONTANEOUS EYE OPENING. RESPIRATIONS ARE EVEN AND UNLABORED, NOT IN ANY ACUTE DISTRESS NOTED. NO FACIAL GRIMACING OR MOANING NOTED. NO C/O SOB, N/V. PICC LINE TO ELVIS INTACT, DRESSING KEPT CLEAN AND DRY. DTR CONTINUES TO REFUSE TO TAKE PHOTOS PRIOR TO DISCHARGE. DTR CHANGED WOUND DRESSING WITH 1 STAFF, DTR STATES SHE "DOES NOT FOLLOW HOSPITAL WOUND DRESSINGS, I HAVE MY OWN WAY IN DOING IT." PT KEPT CLEAN AND DRY. ALL BELONGINGS TAKEN WITH DTR. PT LEFT IN STABLE CONDITION.
[2018-06-25] MEDS ORDERED: EPOETIN ALFA (10,000 UNIT) 10,000 UNIT/ML VIAL SQ SCH (15:00)
[2018-06-25 15:11] LABS: ERYTHROPOIETIN 362.3 mIU/mL (2.6-18.5)
== END 2018-06-24 18:50 | disposition home health service (06) | DRG 811 ==
LOC: ER 15:12 → TELE1 17:16 → MEDSG1 06-23 00:49 → MED 06-23 22:40
PROVIDERS: ADMIT Hospitalist; ATTEND Hospitalist
PROC: 30233N1 Transfusion of Nonautologous Red Blood Cells into Peripheral Vein, Percutaneous Approach (ICD-10-PCS; principal; 2018-06-23)
DX: D50.9 Iron deficiency anemia, unspecified (principal); E43 Unspecified severe protein-calorie malnutrition; R53.2 Functional quadriplegia; D68.59 Other primary thrombophilia; E87.1 Hypo-osmolality and hyponatremia; L03.116 Cellulitis of left lower limb; L03.115 Cellulitis of right lower limb; I69.351 Hemiplegia and hemiparesis following cerebral infarction affecting right dominant side; M86.8X6 Other osteomyelitis, lower leg; Z68.1 Body mass index [BMI] 19.9 or less, adult; E03.9 Hypothyroidism, unspecified; E78.5 Hyperlipidemia, unspecified; E87.6 Hypokalemia; F03.90 Unspecified dementia, unspecified severity, without behavioral disturbance, psychotic disturbance, mood disturbance, and anxiety; R13.10 Dysphagia, unspecified; Z93.1 Gastrostomy status; Z79.84 Long term (current) use of oral hypoglycemic drugs; Z96.659 Presence of unspecified artificial knee joint; Z90.710 Acquired absence of both cervix and uterus; Z79.899 Other long term (current) drug therapy; Z96.649 Presence of unspecified artificial hip joint; Z66 Do not resuscitate; I10 Essential (primary) hypertension; I25.10 Atherosclerotic heart disease of native coronary artery without angina pectoris; E11.69 Type 2 diabetes mellitus with other specified complication; D47.3 Essential (hemorrhagic) thrombocythemia; E88.09 Other disorders of plasma-protein metabolism, not elsewhere classified; Z88.2 Allergy status to sulfonamides; L89.150 Pressure ulcer of sacral region, unstageable; E87.70 Fluid overload, unspecified; E11.51 Type 2 diabetes mellitus with diabetic peripheral angiopathy without gangrene
CPT/HCPCS: 31720; 36415; 36600; 71045-TC; 80048-TC; 80061-TC; 80076-TC; 80202-TC; 82272-TC; 82306; 82378; 82668; 82728-TC; 82746; 82803-TC; 82962-TC; 83010; 83540-TC; 83615-TC; 83735-TC; 84100-TC; 84443-TC; 84550-TC; 85025-TC; 85045-TC; 85652-TC; 86850-TC; 86921-TC; 87081-TC; A4216; A4606; A6253; A6402; A6403; C9113; J1815; J1940; J2185; J3370; J7030; J7050; J7060; P9016-BL; Z7610

== ENCOUNTER → 2018-06-30 | Emergency (ER) | payer MEDICARE, OTHER ==
[~2018-06-30] VITALS: Ht 165.1 cm; Wt 63.5 kg
[~2018-06-30] MED LIST changes: +ALBU18HF2 IH; -ALBU18HF2 INH; +BETH10TA8 GT; +ERTA1VIA2 IV; +GENTAMICIN SULFATE TD; +MULT-24 GT; -MUPI22OI2 TP; +RIVA10TA GT; +VITA100014 GT; +ZINC220C8 GT; -Zinc Sulfate GT
--- NOTE | 2018-06-30 07:51 | NUR ---
[facility] CALLED. BECKY [id number] TRIP # [id number]
--- NOTE | 2018-06-30 08:05 | NUR ---
PT GTUBE INPLACE PER XRAY , PT TURNED REPOSTIONED FOR COMFORT ORAL SUCTIONED .
--- NOTE | 2018-06-30 10:50 | NUR ---
[facility] HERE TRANSFORT PT HOME STABLE
[2018-06-30 11:32] VITALS: BP 112/45
== END | disposition home or self-care (01) ==
LOC: ER 06:59
DX: K94.23 Gastrostomy malfunction (principal); I10 Essential (primary) hypertension; E11.9 Type 2 diabetes mellitus without complications; F03.90 Unspecified dementia, unspecified severity, without behavioral disturbance, psychotic disturbance, mood disturbance, and anxiety; Z88.2 Allergy status to sulfonamides; Z88.1 Allergy status to other antibiotic agents; Z86.73 Personal history of transient ischemic attack (TIA), and cerebral infarction without residual deficits; Z79.01 Long term (current) use of anticoagulants; Z79.84 Long term (current) use of oral hypoglycemic drugs; Z79.899 Other long term (current) drug therapy
CPT/HCPCS: 43760; 74018; 99284; A4606; Z7610